=== PATIENT | female | born 1985 | race Caucasian/White ===

== ENCOUNTER 2016-08-17 17:05 | Emergency (ER) | payer SELFPAY ==
[2016-08-17] MEDS ORDERED: Albuterol/Ipratropium 3.0-0.5 MG/3 ML Neb Soln NEB ONE (17:24)
--- NOTE | 2016-08-17 17:25 | EDM.PDOC ---
ED HISTORY OF PRESENT ILLNESS - General Chief Complaint: Respiratory Problem Stated Complaint: COLD Time Seen by Provider: 08/17/16 17:20 Source of Information: Reports: Patient History Limitations: Reports: No limitations - History of Present Illness INITIAL COMMENTS - FREE TEXT/NARRATIVE: HISTORY AND PHYSICAL: History of present illness: [Patient comes to the emergency room complaining of cough and cold symptoms for the past 3 weeks. Her symptoms have mostly resolved other than the cough. It is dry and hacking. No sputum production. She has not had fever or chills for at least the past week. No runny nose or earaches. No nausea or vomiting. She had one episode of loose stools earlier today. No chest pain shortness of breath or difficulty breathing. She hears wheezing when she coughs. She has a history of asthma which requires her to use albuterol inhaler a couple of times a week. She does not currently have a PCP as she does not have health insurance. No other complaints or concerns at this time.] Review of systems: As per history of present illness and below otherwise all systems reviewed and negative. Past medical history: As per history of present illness and as reviewed below otherwise noncontributory. Surgical history: As per history of present illness and as reviewed below otherwise noncontributory. Social history: No reported history of drug or alcohol abuse. Family history: As per history of present illness and as reviewed below otherwise noncontributory. Physical exam: HEENT: Atraumatic, normocephalic. TMs are pearly hunter and without effusion bilaterally. No nasal discharge. Turbinates are without inflammation. Oral mucous membranes are pink and moist no tonsillar swelling erythema or exudate. neck supple, nontender, no lymphadenopathy.. Lungs: Clear to auscultation, but unable to inhale deeply. breath sounds equal bilaterally. No wheezing crackles or rales. Heart: S1S2, regular, negative for clicks, rubs, or JVD. Abdomen: Obese. Soft, nontender. Negative for costovertebral tenderness. Pelvis: Stable nontender. Genitourinary: Deferred. Rectal: Deferred. Extremities: Atraumatic, negative for cords or calf pain. No cyanosis to feet or lower legs. Neurovascular unremarkable. Neuro: Awake, alert, oriented. Exam nonfocal. Therapeutics: [DuoNeb] Impression: [Viral bronchitis] Plan: [Inspiration is improved significantly with DuoNeb breathing treatment. Discussed with patient that she needs to increase cough and she's using albuterol inhaler. We also discussed that her symptoms are viral in nature and an antibiotic will not be effective. Encouraged to push fluids take Robitussin or Delsym cough syrup as needed. She is given a prescription for Albuterol inhaler #1 sig: One to 2 puffs every 4-6 hours as needed for wheezing, cough, shortness of breath. no refills All questions are answered and concerns are addressed.] Definitive disposition and diagnosis as appropriate pending reevaluation and review of above. - Related Data Allergies/ADRs: Allergies Allergy/AdvReac Type Severity Reaction Status Date / Time morphine Allergy Rash Verified 08/17/16 17:16 Home Meds: Home Meds Albuterol [Take Home: Albuterol 6.7 GM, 1 INH Pack] 0 inhaler NASBOTH ASDIRECTED 08/17/16 [History] Cetirizine [ZyrTEC] 10 mg PO BEDTIME 08/17/16 [History] Past Medical History - Past Health History Medical/Surgical History: Denies Medical/Surgical History Social & Family History - Alcohol Use Days Per Week of Alcohol Use: 0 Number of Drinks Per Day: 1 Total Drinks Per Week: 0 - Recreational Drug Use Recreational Drug Use: No ED ROS GENERAL - Review of Systems Review Of Systems: ROS reveals no pertinent complaints other than HPI. ED EXAM, GENERAL - Physical Exam Exam: See Below Course - Vital Signs Last Recorded V/S: Last Vital Signs Temp 98.7 F 08/17/16 18:05 Pulse 81 08/17/16 18:05 Resp 18 08/17/16 18:05 BP 133/63 08/17/16 18:05 Pulse Ox 96 08/17/16 18:05 - Orders/Labs/Meds Orders: Active Orders 24 hr Category Date Time Status RT Aerosol Therapy [RC] ASDIRECTED Care 08/17/16 17:24 Active Meds: Medications Discontinued Medications Generic Name Dose Route Start Last Admin Trade Name Freq PRN Reason Stop Dose Admin Albuterol/Ipratropium 3 ml 08/17/16 17:24 08/17/16 17:37 Duoneb 3.0-0.5 Mg/3 Ml NEB 08/17/16 17:25 3 ml ONETIME ONE Administration Departure - Departure Time of Disposition: 17:55 Disposition: Home, Self-Care 01 Condition: good Clinical Impression: Viral bronchitis Instructions: Viral Respiratory Infection, [id number] Referrals: PCP,None [Primary Care Provider] - Forms: ED Department Discharge Additional Instructions: The following information is given to patients seen in the emergency department who are being discharged to home. This information is to outline your options for follow-up care. We provide all patients seen in our emergency department with a follow-up referral. The need for follow-up, as well as the timing and circumstances, are variable depending upon the specifics of your emergency department visit. If you don't have a primary care physician on staff, we will provide you with a referral. We always advise you to contact your personal physician following an emergency department visit to inform them of the circumstance of the visit and for follow-up with them and/or the need for any referrals to a consulting specialist. The emergency department will also refer you to a specialist when appropriate. This referral assures that you have the opportunity for follow-up care with a specialist. All of these measure are taken in an effort to provide you with optimal care, which includes your follow-up. Under all circumstances we always encourage you to contact your private physician who remains a resource for coordinating your care. When calling for follow-up care, please make the office aware that this follow-up is from your recent emergency room visit. If for any reason you are refused follow-up, please contact the [facility] emergency department at and asked to speak to the emergency department charge nurse. [address] [address] Establish care with a local primary care provider or clinic listed above. Take Robitussin or Delsym cough syrup as needed. Use your Albuterol inhaler 3-4 times per day as needed. Return to ER as needed as discussed. - My Orders Last 24 Hours: My Active Orders 08/17/16 17:24 RT Aerosol Therapy [RC] ASDIRECTED - Assessment/Plan Last 24 Hours: My Active Orders 08/17/16 17:24 RT Aerosol Therapy [RC] ASDIRECTED
[2016-08-17 18:12] VITALS: BP 133/63
== END 2016-08-17 18:17 | disposition home or self-care (01) ==
LOC: MW.ED 17:05
DX: J20.8 Acute bronchitis due to other specified organisms (principal); Z88.5 Allergy status to narcotic agent
CPT/HCPCS: 94664; 99284

== ENCOUNTER 2016-10-11 19:01 | Emergency (ER) | payer SELFPAY ==
[2016-10-11] MEDS ORDERED: Ketorolac 60 MG/2 ML SDV IM ONE (20:15)
--- NOTE | 2016-10-11 20:16 | EDM.PDOC ---
ED HPI GENERAL MEDICAL PROBLEM - General Chief Complaint: Back Pain or Injury Stated Complaint: HURT LOWER BACK Time Seen by Provider: 10/11/16 20:15 Source of Information: Reports: Patient - History of Present Illness INITIAL COMMENTS - FREE TEXT/NARRATIVE: HISTORY AND PHYSICAL: History of present illness: [] Patient presents with 5/10 low back pain after moving a couch earlier today, no radiculopathy no footdrop saddle anesthesia bowel or urine symptoms, pain worsened by lifting better at rest No fever nausea vomiting chills sweats Review of systems: As per history of present illness and below otherwise all systems reviewed and negative. Past medical history: As per history of present illness and as reviewed below otherwise noncontributory. Surgical history: As per history of present illness and as reviewed below otherwise noncontributory. Social history: No reported history of drug or alcohol abuse. Family history: As per history of present illness and as reviewed below otherwise noncontributory. Physical exam: HEENT: Atraumatic, normocephalic, pupils reactive, negative for conjunctival pallor or scleral icterus, mucous membranes moist, throat clear, neck supple, nontender, trachea midline. Lungs: Clear to auscultation, breath sounds equal bilaterally, chest nontender. Heart: S1S2, regular, negative for clicks, rubs, or JVD. Abdomen: Soft, nondistended, nontender. Negative for masses or hepatosplenomegaly. Negative for costovertebral tenderness. Pelvis: Stable nontender. Genitourinary: Deferred. Rectal: Deferred. Extremities: Atraumatic, negative for cords or calf pain. Neurovascular unremarkable. Straight leg raise to 30 does not produce any radiculopathy Neuro: Awake, alert, oriented. Cranial nerves II through XII unremarkable. Cerebellum unremarkable. Motor and sensory unremarkable throughout. Exam nonfocal. Footdrop or saddle anesthesia Diagnostics: [] HCG, lumbar spine 3 views Therapeutics: [] Toradol 60 IM Cataflam Flexeril Impression: [] Low-back pain/paraspinous muscle spasm Definitive disposition and diagnosis as appropriate pending reevaluation and review of above. Back Pain Score (Numeric/FACES): 7 - Related Data Allergies Allergy/AdvReac Type Severity Reaction Status Date / Time morphine Allergy Rash Verified 08/17/16 17:16 Home Meds: Home Meds Albuterol [Take Home: Albuterol 6.7 GM, 1 INH Pack] 0 inhaler NASBOTH ASDIRECTED 08/17/16 [History] Cetirizine [ZyrTEC] 10 mg PO BEDTIME 08/17/16 [History] Past Medical History - Past Health History Medical/Surgical History: Denies Medical/Surgical History HEENT History: Reports: Impaired vision Respiratory History: Reports: Asthma - Infectious Disease History Infectious Disease History: Reports: Chicken pox - Past Surgical History Other Musculoskeletal Surgeries/Procedures:: right hand & left knee surgery Social & Family History - Family History Family Medical History: Noncontributory - Tobacco Use Smoking Status *Q: Never Smoker Second Hand Smoke Exposure: No - Caffeine Use Caffeine Use: Reports: Coffee, Soda - Alcohol Use Days Per Week of Alcohol Use: 0 Number of Drinks Per Day: 1 Total Drinks Per Week: 0 - Recreational Drug Use Recreational Drug Use: No ED ROS GENERAL - Review of Systems Review Of Systems: ROS reveals no pertinent complaints other than HPI. ED EXAM, GENERAL - Physical Exam Exam: See Below Course - Vital Signs Last Recorded V/S: Last Vital Signs Temp 36.2 C 10/11/16 19:13 Pulse 75 10/11/16 19:13 Resp 18 10/11/16 19:13 BP 124/80 10/11/16 19:13 Pulse Ox 99 10/11/16 19:13 - Orders/Labs/Meds Orders: Active Orders 24 hr Category Date Time Status Lumbar Spine 2 or 3V [CR] Stat Exams 10/11/16 20:00 Taken Labs: Laboratory Tests 10/11/16 Range/Units 20:00 Urine HCG, Qual NEGATIVE (NEGATIVE) Meds: Medications Discontinued Medications Generic Name Dose Route Start Last Admin Trade Name Shubham PRN Reason Stop Dose Admin Ketorolac Tromethamine 60 mg 10/11/16 20:15 Toradol IM 10/11/16 20:16 ONETIME ONE Departure - Departure Time of Disposition: 20:45 Disposition: Home, Self-Care 01 Condition: good Clinical Impression: Low back pain, Lumbar paraspinal muscle spasm Forms: ED Department Discharge Additional Instructions: Medication as prescribed Return if symptoms persist or worsen Followup with primary care in 2 weeks [facility] - Primary [facility] [address] [place] [id number] The following information is given to patients seen in the emergency department who are being discharged to home. This information is to outline your options for follow-up care. We provide all patients seen in our emergency department with a follow-up referral. The need for follow-up, as well as the timing and circumstances, are variable depending upon the specifics of your emergency department visit. If you don't have a primary care physician on staff, we will provide you with a referral. We always advise you to contact your personal physician following an emergency department visit to inform them of the circumstance of the visit and for follow-up with them and/or the need for any referrals to a consulting specialist. The emergency department will also refer you to a specialist when appropriate. This referral assures that you have the opportunity for follow-up care with a specialist. All of these measure are taken in an effort to provide you with optimal care, which includes your follow-up. Under all circumstances we always encourage you to contact your private physician who remains a resource for coordinating your care. When calling for follow-up care, please make the office aware that this follow-up is from your recent emergency room visit. If for any reason you are refused follow-up, please contact the [facility] emergency department at and asked to speak to the emergency department charge nurse. - My Orders Last 24 Hours: My Active Orders 10/11/16 20:00 Lumbar Spine 2 or 3V [CR] Stat - Assessment/Plan Last 24 Hours: My Active Orders 10/11/16 20:00 Lumbar Spine 2 or 3V [CR] Stat
[2016-10-11 21:15] VITALS: BP 125/82
--- NOTE | 2016-10-12 15:21 | CR ---
EXAM DATE: 10/11/16 PATIENT'S AGE: 31 Patient: MARIANA DOMINGO Facility: [place], [place] Site . Site : 1985 Study: XRay Spine Lumbar [id number]/1/2017 8:33:47 PM Ordering Physician: Sheba Velarde Final Report: INDICATION: back pain TECHNIQUE: Lumbar spine radiograph 2 views COMPARISON: None FINDINGS: Bones: Alignment is normal. No acute fractures, compression deformities, or aggressive bone lesions identified. Disc spaces: Disc spaces are normal. Facet joints are normal. Soft tissues: Unremarkable. IMPRESSION: 1. No acute osseous injuries are noted. Dictated by: Lg Melgar MD @ 10/11/2016 20:35:12 (Electronic Signature) Report Signed by Proxy. JULIA
== END 2016-10-11 20:10 | disposition home or self-care (01) ==
LOC: MW.ED 19:01
DX: M62.830 Muscle spasm of back (principal); M54.5 Low back pain; J45.909 Unspecified asthma, uncomplicated; Z88.5 Allergy status to narcotic agent
CPT/HCPCS: 72100; 81025; 96372; 99283; J1885

== ENCOUNTER 2016-11-13 18:49 | Emergency (ER) | payer SELFPAY ==
--- NOTE | 2016-11-13 19:10 | EDM.PDOC ---
ED HPI GENERAL MEDICAL PROBLEM - General Chief Complaint: Lower Extremity Injury/Pain Stated Complaint: PT HURT RT FOOT Time Seen by Provider: 11/13/16 19:04 Source of Information: Reports: Patient - History of Present Illness INITIAL COMMENTS - FREE TEXT/NARRATIVE: HISTORY AND PHYSICAL: History of present illness: [] Patient presents with right foot pain unable to bear weight due to pain, yesterday she was walking off of a step and twisted her ankle she has used ice ibuprofen with some benefit her ankle is nonswollen and is not hurting but she has pain over the calcaneus at this time with light touch on the plantar surface of her heel No bruising or open lesion entire limb is otherwise neurovascularly intact skin is intact No fever nausea vomiting chills sweats no fall or head injury or trauma no loss of consciousness Review of systems: As per history of present illness and below otherwise all systems reviewed and negative. Past medical history: As per history of present illness and as reviewed below otherwise noncontributory. Surgical history: As per history of present illness and as reviewed below otherwise noncontributory. Social history: No reported history of drug or alcohol abuse. Family history: As per history of present illness and as reviewed below otherwise noncontributory. Physical exam: HEENT: Atraumatic, normocephalic, pupils reactive, negative for conjunctival pallor or scleral icterus, mucous membranes moist, throat clear, neck supple, nontender, trachea midline. Lungs: Clear to auscultation, breath sounds equal bilaterally, chest nontender. Heart: S1S2, regular, negative for clicks, rubs, or JVD. Abdomen: Soft, nondistended, nontender. Negative for masses or hepatosplenomegaly. Negative for costovertebral tenderness. Pelvis: Stable nontender. Genitourinary: Deferred. Rectal: Deferred. Extremities: Atraumatic, negative for cords or calf pain. Neurovascular unremarkable. Right foot: As per history of present illness unaffected above the ankle Neuro: Awake, alert, oriented. Cranial nerves II through XII unremarkable. Cerebellum unremarkable. Motor and sensory unremarkable throughout. Exam nonfocal. Diagnostics: [] Right ankle 3-V Therapeutics: [] Crutches nonweightbearing Rest ice ibuprofen Orthotics may benefit Followup with orthopedist or digital performance analyst Impression: [] Right heel pain/heel spur Definitive disposition and diagnosis as appropriate pending reevaluation and review of above. Right Ankle Pain Score (Numeric/FACES): 6 - Related Data Allergies Allergy/AdvReac Type Severity Reaction Status Date / Time morphine Allergy Rash Verified 11/13/16 19:01 Past Medical History - Past Health History Medical/Surgical History: Denies Medical/Surgical History HEENT History: Reports: Impaired Vision Respiratory History: Reports: Asthma - Infectious Disease History Infectious Disease History: Reports: Chicken Pox - Past Surgical History Other Musculoskeletal Surgeries/Procedures:: right hand & left knee surgery Social & Family History - Family History Family Medical History: Noncontributory - Tobacco Use Smoking Status *Q: Never Smoker Second Hand Smoke Exposure: No - Caffeine Use Caffeine Use: Reports: Coffee, Soda - Alcohol Use Days Per Week of Alcohol Use: 0 Number of Drinks Per Day: 1 Total Drinks Per Week: 0 - Recreational Drug Use Recreational Drug Use: No Review of Systems - Review of Systems Review Of Systems: ROS reveals no pertinent complaints other than HPI. ED EXAM, GENERAL - Physical Exam Exam: See Below Course - Vital Signs Last Recorded V/S: Last Vital Signs Temp 36.3 C 11/13/16 18:55 Pulse 94 11/13/16 18:55 Resp 19 11/13/16 18:55 BP 130/98 H 11/13/16 18:55 Pulse Ox 98 11/13/16 18:55 - Orders/Labs/Meds Orders: Active Orders 24 hr Category Date Time Status Foot Comp Min 3V Rt [CR] Stat Exams 11/13/16 19:01 Taken Labs: Laboratory Tests 11/13/16 Range/Units 19:15 Urine HCG, Qual NEGATIVE (NEGATIVE) Departure - Departure Time of Disposition: 20:17 Disposition: Home, Self-Care 01 Condition: good Clinical Impression: Pain, Heel spur - Discharge Information Forms: ED Department Discharge Additional Instructions: Wrist Ice 20 minute intervals 3 times daily 7-10 days Ibuprofen 400 mg 3 times daily 7-10 days Orthotics in her shoes may benefit Followup with orthopedist or digital performance analyst one week 48 hours off work Crutches to be used as needed, recommend no nonweightbearing or toe-touch [facility] [address], [address] [place] [address] my orthopedic The following information is given to patients seen in the emergency department who are being discharged to home. This information is to outline your options for follow-up care. We provide all patients seen in our emergency department with a follow-up referral. The need for follow-up, as well as the timing and circumstances, are variable depending upon the specifics of your emergency department visit. If you don't have a primary care physician on staff, we will provide you with a referral. We always advise you to contact your personal physician following an emergency department visit to inform them of the circumstance of the visit and for follow-up with them and/or the need for any referrals to a consulting specialist. The emergency department will also refer you to a specialist when appropriate. This referral assures that you have the opportunity for follow-up care with a specialist. All of these measure are taken in an effort to provide you with optimal care, which includes your follow-up. Under all circumstances we always encourage you to contact your private physician who remains a resource for coordinating your care. When calling for follow-up care, please make the office aware that this follow-up is from your recent emergency room visit. If for any reason you are refused follow-up, please contact the [facility] emergency department at and asked to speak to the emergency department charge nurse. - My Orders Last 24 Hours: My Active Orders 11/13/16 19:01 Foot Comp Min 3V Rt [CR] Stat - Assessment/Plan Last 24 Hours: My Active Orders 11/13/16 19:01 Foot Comp Min 3V Rt [CR] Stat
[2016-11-13 20:29] VITALS: BP 125/88
--- NOTE | 2016-11-15 14:44 | CR ---
EXAM DATE: 11/13/16 PATIENT'S AGE: 31 Patient: MARIANA DOMINGO Facility: [place], [place] Site . Site : 1985 Study: XRay Extremity Right [id number] foot-11/13/2016 7:43:47 PM Ordering Physician: Sheba Velarde Final Report: TECHNIQUE: Three views of the right foot. INDICATION: Right foot pain. FINDINGS: No acute right foot fracture, dislocation, or radiopaque foreign body. No bone lesion. Small plantar heel spur. Right foot otherwise negative. Dictated by Tonio Cramer MD @ 11/13/2016 8:04:55 PM Dictated by: Tonio Cramer MD @ 11/13/2016 20:05:07 (Electronic Signature) Report Signed by Proxy. JULIA
== END 2016-11-13 20:29 | disposition home or self-care (01) ==
LOC: MW.ED 18:49
DX: M77.31 Calcaneal spur, right foot (principal); Z88.5 Allergy status to narcotic agent; Z98.890 Other specified postprocedural states; W18.43XA Slipping, tripping and stumbling without falling due to stepping from one level to another, initial encounter
CPT/HCPCS: 73630-26-RT; 73630-RT; 81025; 99282; 99283

== ENCOUNTER 2016-11-27 12:32 | Emergency (ER) | payer SELFPAY ==
--- NOTE | 2016-11-27 13:00 | EDM.PDOC ---
ED HPI GENERAL MEDICAL PROBLEM - General Chief Complaint: Lower Extremity Injury/Pain Stated Complaint: PAIN IN KNEE AND FOOT Time Seen by Provider: 11/27/16 12:57 Source of Information: Reports: Patient History Limitations: Reports: No Limitations - History of Present Illness INITIAL COMMENTS - FREE TEXT/NARRATIVE: History of present illness: [31-year-old female comes in complaining of left ankle pain. 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 Past medical history: As per history of present illness and as reviewed below otherwise noncontributory. Surgical history: As per history of present illness and as reviewed below otherwise noncontributory. Social history: No reported history of drug or alcohol abuse. Family history: As per history of present illness and as reviewed below otherwise noncontributory. Physical exam: HEENT: Atraumatic, normocephalic, pupils reactive, negative for conjunctival pallor or scleral icterus, mucous membranes moist, throat clear, neck supple, nontender, trachea midline. Lungs: Clear to auscultation, breath sounds equal bilaterally, chest nontender. Heart: S1S2, regular, negative for clicks, rubs, or JVD. Abdomen: Soft, nondistended, nontender. Negative for masses or hepatosplenomegaly. Negative for costovertebral tenderness. Pelvis: Stable nontender. Genitourinary: Deferred. Rectal: Deferred. Extremities: Atraumatic, negative for cords or calf pain. Neurovascular unremarkable. Left ankle without swelling, edema, or ecchymosis is tender to palpation. Neuro: Awake, alert, oriented. Cranial nerves II through XII unremarkable. Cerebellum unremarkable. Motor and sensory unremarkable throughout. Exam nonfocal. Global assessment is benign save as noted in the subjective complaint in the history of present illness Diagnostics: [X-ray of left ankle] Therapeutics: [] Impression: [Ankle pain] Plan: [Gideon wrap, crutches, [id number] pain medicine] Definitive disposition and diagnosis as appropriate pending reevaluation and review of above. right ankle Pain Score (Numeric/FACES): 6 - Related Data Allergies Allergy/AdvReac Type Severity Reaction Status Date / Time morphine Allergy Rash Verified 11/27/16 12:48 Home Meds: Home Meds . [No Known Home Meds] 11/27/16 [History] Past Medical History - Past Health History Medical/Surgical History: Denies Medical/Surgical History HEENT History: Reports: Impaired Vision Respiratory History: Reports: Asthma - Infectious Disease History Infectious Disease History: Reports: Chicken Pox - Past Surgical History Other Musculoskeletal Surgeries/Procedures:: right hand & left knee surgery Social & Family History - Family History Family Medical History: Noncontributory - Tobacco Use Smoking Status *Q: Never Smoker Second Hand Smoke Exposure: No - Caffeine Use Caffeine Use: Reports: Coffee, Soda - Alcohol Use Days Per Week of Alcohol Use: 0 Number of Drinks Per Day: 1 Total Drinks Per Week: 0 - Recreational Drug Use Recreational Drug Use: No Review of Systems - Review of Systems Review Of Systems: See Below (See history of present illness) ED EXAM, GENERAL - Physical Exam Exam: See Below (See history of present illness) Course - Vital Signs Last Recorded V/S: Last Vital Signs Temp 36.0 C 11/27/16 12:48 Pulse 102 H 11/27/16 12:48 Resp 16 11/27/16 12:48 BP 129/81 11/27/16 12:48 Pulse Ox 98 11/27/16 12:48 - Orders/Labs/Meds Orders: Active Orders 24 hr Category Date Time Status Ankle Min 3V Rt [CR] Stat Exams 11/27/16 13:09 Taken Departure - Departure Time of Disposition: 14:04 Disposition: Home, Self-Care 01 Condition: Good Clinical Impression: Ankle pain, left - Discharge Information Instructions: Crutch Use, [id number] Forms: ED Department Discharge Additional Instructions: The following information is given to patients seen in the emergency department who are being discharged to home. This information is to outline your options for follow-up care. We provide all patients seen in our emergency department with a follow-up referral. The need for follow-up, as well as the timing and circumstances, are variable depending upon the specifics of your emergency department visit. If you don't have a primary care physician on staff, we will provide you with a referral. We always advise you to contact your personal physician following an emergency department visit to inform them of the circumstance of the visit and for follow-up with them and/or the need for any referrals to a consulting specialist. The emergency department will also refer you to a specialist when appropriate. This referral assures that you have the opportunity for follow-up care with a specialist. All of these measure are taken in an effort to provide you with optimal care, which includes your follow-up. Under all circumstances we always encourage you to contact your private physician who remains a resource for coordinating your care. When calling for follow-up care, please make the office aware that this follow-up is from your recent emergency room visit. If for any reason you are refused follow-up, please contact the [facility] Emergency Department at and asked to speak to the emergency department charge nurse. Please keep your leg elevated as much as possible and use crutches when walking you may alternate ice no longer than 20 minutes at a time for pain and swelling You may take ibuprofen 800 mg up to every 8 hours for pain Follow-up with your PCP in 1-2 days You have been providing orthopedic referral for deeper evaluation please give this information to your flare since you indicated this was work-related [facility] Professional Building [address] [place] [address], [address] [place] [address] - My Orders Last 24 Hours: My Active Orders 11/27/16 13:09 Ankle Min 3V Rt [CR] Stat - Assessment/Plan Last 24 Hours: My Active Orders 11/27/16 13:09 Ankle Min 3V Rt [CR] Stat
[2016-11-27 15:00] VITALS: BP 125/74
--- NOTE | 2016-11-29 11:49 | CR ---
EXAM DATE: 11/27/16 PATIENT'S AGE: 31 Patient: MARIANA DOMINGO Facility: [place], [place] Site Site : 1985 Study: XRay Extremity Right ANKLE [id number]/17/2017 1:31:12 PM Ordering Physician: EDER Final Report: INDICATION: PAIN/SLIPPED AND TWISTED TWO WEEKS AGO INDICATION: Right ankle pain and injury. TECHNIQUE: Three view. FINDINGS: No acute fracture is seen of the right ankle. The mortise appears to be in good position. IMPRESSION: No acute fracture is seen of the right ankle. Dictated by Satinder Burr MD @ 11/27/2016 2:43:42 PM Dictated by: Satinder Burr MD @ 11/27/2016 14:43:48 (Electronic Signature) Report Signed by Proxy. [facility]
== END 2016-11-27 14:56 | disposition home or self-care (01) ==
LOC: MW.ED 12:32
DX: M25.572 Pain in left ankle and joints of left foot (principal); J45.909 Unspecified asthma, uncomplicated; Z88.5 Allergy status to narcotic agent
CPT/HCPCS: 73610-26-RT; 73610-RT; 99282; 99283

== ENCOUNTER 2016-12-03 18:11 | Emergency (ER) | payer SELFPAY ==
--- NOTE | 2016-12-03 19:30 | EDM.PDOC ---
ED HPI GENERAL MEDICAL PROBLEM - General Chief Complaint: Behavioral/Psych Stated Complaint: ANXIETY ATTACK Time Seen by Provider: 12/03/16 19:15 - History of Present Illness INITIAL COMMENTS - FREE TEXT/NARRATIVE: HISTORY AND PHYSICAL: History of present illness: Patient 31-year-old female history of anxiety and panic attacks presents with a concern of anxiety and panic attack she has no other complaints she states she just feels significantly anxious she denies homicidal or suicidal ideation and has no other concerns Review of systems: As per history of present illness and below otherwise all systems reviewed and negative. Past medical history: As per history of present illness and as reviewed below otherwise noncontributory. Surgical history: As per history of present illness and as reviewed below otherwise noncontributory. Social history: No reported history of drug or alcohol abuse. Family history: As per history of present illness and as reviewed below otherwise noncontributory. Physical exam: HEENT: Atraumatic, normocephalic, pupils reactive, negative for conjunctival pallor or scleral icterus, mucous membranes moist, throat clear, neck supple, nontender, trachea midline. Lungs: Clear to auscultation, breath sounds equal bilaterally, chest nontender. Heart: S1S2, regular, negative for clicks, rubs, or JVD. Abdomen: Soft, nondistended, nontender. Negative for masses or hepatosplenomegaly. Negative for costovertebral tenderness. Pelvis: Stable nontender. Genitourinary: Deferred. Rectal: Deferred. Extremities: Atraumatic, negative for cords or calf pain. Neurovascular unremarkable. Neuro: Awake, alert, oriented. Cranial nerves II through XII unremarkable. Cerebellum unremarkable. Motor and sensory unremarkable throughout. Exam nonfocal. Diagnostics: None Therapeutics: None Impression: #1 anxiety Definitive disposition and diagnosis as appropriate pending reevaluation and review of above. chest Pain Score (Numeric/FACES): 7 - Related Data Allergies Allergy/AdvReac Type Severity Reaction Status Date / Time morphine Allergy Rash Verified 12/03/16 18:47 Home Meds: Home Meds Cetirizine [ZyrTEC] 10 mg PO DAILY 12/03/16 [History] Past Medical History - Past Health History Medical/Surgical History: Denies Medical/Surgical History HEENT History: Reports: Impaired Vision Other HEENT History: wears eyeglasses Cardiovascular History: Reports: None Respiratory History: Reports: Asthma Gastrointestinal History: Reports: None Genitourinary History: Reports: None ROPE TIER History: Reports: None Musculoskeletal History: Reports: None Neurological History: Reports: None Psychiatric History: Reports: Anxiety, Depression, PTSD Endocrine/Metabolic History: Reports: None Hematologic History: Reports: None Immunologic History: Reports: None Oncologic (Cancer) History: Reports: None Dermatologic History: Reports: None - Infectious Disease History Infectious Disease History: Reports: Chicken Pox - Past Surgical History Other Musculoskeletal Surgeries/Procedures:: right hand & left knee surgery Social & Family History - Family History Family Medical History: Noncontributory - Tobacco Use Smoking Status *Q: Never Smoker Second Hand Smoke Exposure: No - Caffeine Use Caffeine Use: Reports: Coffee Caffeine Use Comment: 1 cup occasionally - Alcohol Use Days Per Week of Alcohol Use: 0 Number of Drinks Per Day: 1 Total Drinks Per Week: 0 - Recreational Drug Use Recreational Drug Use: No ED ROS GENERAL - Review of Systems Review Of Systems: ROS reveals no pertinent complaints other than HPI. ED EXAM, GENERAL - Physical Exam Exam: See Below (See dictation) Course - Vital Signs Last Recorded V/S: Last Vital Signs Temp 36.6 C 12/03/16 19:10 Pulse 89 12/03/16 19:10 Resp 18 12/03/16 19:10 BP 138/79 12/03/16 19:10 Pulse Ox 98 12/03/16 19:10 Departure - Departure Time of Disposition: 19:29 Disposition: Home, Self-Care 01 Condition: Good Clinical Impression: Anxiety - Discharge Information Forms: ED Department Discharge Additional Instructions: The following information is given to patients seen in the emergency department who are being discharged to home. This information is to outline your options for follow-up care. We provide all patients seen in our emergency department with a follow-up referral. The need for follow-up, as well as the timing and circumstances, are variable depending upon the specifics of your emergency department visit. If you don't have a primary care physician on staff, we will provide you with a referral. We always advise you to contact your personal physician following an emergency department visit to inform them of the circumstance of the visit and for follow-up with them and/or the need for any referrals to a consulting specialist. The emergency department will also refer you to a specialist when appropriate. This referral assures that you have the opportunity for followup care with a specialist. All of these measure are taken in an effort to provide you with optimal care, which includes your followup. Under all circumstances we always encourage you to contact your private physician who remains a resource for coordinating your care. When calling for followup care, please make the office aware that this follow-up is from your recent emergency room visit. If for any reason you are refused follow-up, please contact the [facility] emergency department at and asked to speak to the emergency department charge nurse. [facility] [place] [id number] Follow-up primary medical doctor 1-2 days scheduled clinic appointment as needed as discussed above return as needed as discussed
[2016-12-03 19:44] VITALS: BP 131/80
== END 2016-12-03 19:42 | disposition home or self-care (01) ==
LOC: MW.ED 18:11
DX: F41.9 Anxiety disorder, unspecified (principal); J45.909 Unspecified asthma, uncomplicated; F32.9 Major depressive disorder, single episode, unspecified; F43.10 Post-traumatic stress disorder, unspecified; Z98.890 Other specified postprocedural states; Z79.899 Other long term (current) drug therapy; Z88.5 Allergy status to narcotic agent
CPT/HCPCS: 99282

== ENCOUNTER 2017-01-13 17:18 | Emergency (ER) | payer SELFPAY ==
[2017-01-13] MEDS ORDERED: Sodium Chloride 0.9% 1,000 ML IV ONE ×2 (17:48→20:12)
[2017-01-13] MEDS ORDERED: LORazepam 2 MG/ML MDV IVPUSH ONE (20:12)
[2017-01-13] MEDS ORDERED: Ondansetron 4 MG/2 ML SDV IVPUSH ONE (20:12)
[2017-01-13] MEDS ORDERED: Ketorolac 30 MG/ML SDV IVPUSH ONE (20:12)
--- NOTE | 2017-01-13 20:13 | EDM.PDOC ---
ED HPI GENERAL MEDICAL PROBLEM - General Chief Complaint: Headache Stated Complaint: DIZZY/HEADACHES Time Seen by Provider: 01/13/17 17:30 Source of Information: Reports: Patient History Limitations: Reports: No Limitations - History of Present Illness INITIAL COMMENTS - FREE TEXT/NARRATIVE: History of present illness: [31-year-old female comes in complaining of the worst headache of her life. Patient indicates she has a history of migraines as well as sinusitis and she feels that she is having both simultaneously. Denies nausea and/or vomiting and or loss of consciousness.] Review of systems: As per history of present illness and below otherwise all systems reviewed and negative. Past medical history: As per history of present illness and as reviewed below otherwise noncontributory. Surgical history: As per history of present illness and as reviewed below otherwise noncontributory. Social history: No reported history of drug or alcohol abuse. Family history: As per history of present illness and as reviewed below otherwise noncontributory. Physical exam: HEENT: Atraumatic, normocephalic, pupils reactive, negative for conjunctival pallor or scleral icterus, mucous membranes moist, frontal and maxillary sinus tenderness, throat clear, neck supple, nontender, trachea midline. Lungs: Clear to auscultation, breath sounds equal bilaterally, chest nontender. Heart: S1S2, regular, negative for clicks, rubs, or JVD. Abdomen: Soft, nondistended, nontender. Negative for masses or hepatosplenomegaly. Negative for costovertebral tenderness. Pelvis: Stable nontender. Genitourinary: Deferred. Rectal: Deferred. Extremities: Atraumatic, negative for cords or calf pain. Neurovascular unremarkable. Neuro: Awake, alert, oriented. Cranial nerves II through XII unremarkable. Cerebellum unremarkable. Motor and sensory unremarkable throughout. Exam nonfocal. Global assessment is benign save is noted in the subjective complaint in the history of present illness save for some noted photosensitivity and sinus tenderness. Diagnostics: [CT of the head] Therapeutics: [IV fluids, Toradol, lorazepam] Impression: [UTI, sinusitis] Plan: [Macrobid, Augmentin] Definitive disposition and diagnosis as appropriate pending reevaluation and review of above. Left Headache Pain Score (Numeric/FACES): 7 - Related Data Allergies Allergy/AdvReac Type Severity Reaction Status Date / Time morphine Allergy Rash Verified 12/03/16 18:47 Home Meds: Home Meds Cetirizine [ZyrTEC] 10 mg PO DAILY 12/03/16 [History] Amoxicillin/Potassium Clav [Augmentin 875-125 Tablet] 1 each PO BID #20 tablet 01/13/17 [Rx] Escitalopram [Lexapro] 20 mg BEDTIME 01/13/17 [History] Excedrin 01/13/17 [History] Nitrofurantoin Monohyd/M-Cryst [Macrobid 100 mg Capsule] 100 mg PO BID #20 capsule 01/13/17 [Rx] Past Medical History - Past Health History Medical/Surgical History: Denies Medical/Surgical History HEENT History: Reports: Impaired Vision Other HEENT History: wears eyeglasses Cardiovascular History: Reports: None Respiratory History: Reports: Asthma Gastrointestinal History: Reports: None Genitourinary History: Reports: None [employer] History: Reports: None Musculoskeletal History: Reports: None Neurological History: Reports: Migraines Psychiatric History: Reports: Anxiety, Depression, PTSD Endocrine/Metabolic History: Reports: None Hematologic History: Reports: None Immunologic History: Reports: None Oncologic (Cancer) History: Reports: None Dermatologic History: Reports: None - Infectious Disease History Infectious Disease History: Reports: Chicken Pox - Past Surgical History Other Musculoskeletal Surgeries/Procedures:: right hand & left knee surgery Social & Family History - Family History Family Medical History: Noncontributory - Tobacco Use Smoking Status *Q: Never Smoker Second Hand Smoke Exposure: No - Caffeine Use Caffeine Use: Reports: Coffee Caffeine Use Comment: 1 cup occasionally - Alcohol Use Days Per Week of Alcohol Use: 0 Number of Drinks Per Day: 1 Total Drinks Per Week: 0 - Recreational Drug Use Recreational Drug Use: No ED ROS GENERAL - Review of Systems Review Of Systems: See Below (See history of present illness) - Physical Exam Exam: See Below (See history of present illness) Course - Vital Signs Last Recorded V/S: Last Vital Signs Temp 35.9 C 01/13/17 19:50 Pulse 63 01/13/17 19:50 Resp 18 01/13/17 17:30 BP 118/69 01/13/17 19:50 Pulse Ox 99 01/13/17 19:50 - Orders/Labs/Meds Orders: Active Orders 24 hr Category Date Time Status Head wo Cont [CT] Stat Exams 01/13/17 17:48 Taken Sodium Chloride 0.9% [Normal Saline] 1,000 ml Med 01/13/17 20:12 Active IV STAT Medication Orders Sodium Chloride (Normal Saline) 1,000 mls @ 999 mls/hr IV STAT ONE Stop: 01/13/17 21:12 Labs: Laboratory Tests 01/13/17 01/13/17 Range/Units 19:19 19:35 HCG, Qual NEGATIVE (NEG) Urine Color YELLOW Urine Appearance CLOUDY Urine pH 6.0 (5.0-8.0) Ur Specific [place] 1.020 (1.001-1.035) Urine Protein NEGATIVE (NEGATIVE) mg/dL Urine Glucose (UA) NEGATIVE (NEGATIVE) mg/dL Urine Ketones NEGATIVE (NEGATIVE) mg/dL Urine Occult Blood SMALL H (NEGATIVE) Urine Nitrite NEGATIVE (NEGATIVE) Urine Bilirubin NEGATIVE (NEGATIVE) Urine Urobilinogen 0.2 (<2.0) EU/dL Ur Leukocyte Esterase MODERATE (NEGATIVE) Urine RBC 1-3 (0-2/HPF) Urine WBC 15-20 (0-5/HPF) Ur Epithelial Cells MANY (NONE-FEW) Urine Bacteria 1+ H (NEGATIVE) Meds: Medications Generic Name Dose Route Start Last Admin Trade Name Freq PRN Reason Stop Dose Admin Sodium Chloride 1,000 mls @ 999 mls/hr 01/13/17 20:12 Normal Saline IV 01/13/17 21:12 STAT ONE Discontinued Medications Generic Name Dose Route Start Last Admin Trade Name Freq PRN Reason Stop Dose Admin Sodium Chloride 1,000 mls @ 999 mls/hr 01/13/17 17:48 01/13/17 18:32 Normal Saline IV 01/13/17 18:48 999 mls/hr STAT ONE Administration Ketorolac Tromethamine 30 mg 01/13/17 20:12 Toradol IVPUSH 01/13/17 20:13 ONETIME ONE Lorazepam 1 mg 01/13/17 20:12 Ativan IVPUSH 01/13/17 20:13 ONETIME ONE Ondansetron HCl 8 mg 01/13/17 20:12 Zofran IVPUSH 01/13/17 20:13 ONETIME ONE Departure - Departure Time of Disposition: 20:57 Disposition: Home, Self-Care 01 Condition: Good Clinical Impression: Sinusitis, UTI (urinary tract infection) - Discharge Information Prescriptions: Amoxicillin/Potassium Clav [Augmentin 875-125 Tablet] 1 each PO BID #20 tablet Nitrofurantoin Monohyd/M-Cryst [Macrobid 100 mg Capsule] 100 mg PO BID #20 capsule Instructions: Sinus Headache, [id number] Forms: ED Department Discharge Additional Instructions: The following information is given to patients seen in the emergency department who are being discharged to home. This information is to outline your options for follow-up care. We provide all patients seen in our emergency department with a follow-up referral. The need for follow-up, as well as the timing and circumstances, are variable depending upon the specifics of your emergency department visit. If you don't have a primary care physician on staff, we will provide you with a referral. We always advise you to contact your personal physician following an emergency department visit to inform them of the circumstance of the visit and for follow-up with them and/or the need for any referrals to a consulting specialist. The emergency department will also refer you to a specialist when appropriate. This referral assures that you have the opportunity for follow-up care with a specialist. All of these measure are taken in an effort to provide you with optimal care, which includes your follow-up. Under all circumstances we always encourage you to contact your private physician who remains a resource for coordinating your care. When calling for follow-up care, please make the office aware that this follow-up is from your recent emergency room visit. If for any reason you are refused follow-up, please contact the [facility] Emergency Department at and asked to speak to the emergency department charge nurse. Take medication as directed Follow-up with PCP 1-2 days Return to ED as needed as discussed [facility] [address] [place] [id number] - My Orders Last 24 Hours: My Active Orders 01/13/17 17:48 Head wo Cont [CT] Stat 01/13/17 20:12 Sodium Chloride 0.9% [Normal Saline] 1,000 ml IV STAT - Assessment/Plan Last 24 Hours: My Active Orders 01/13/17 17:48 Head wo Cont [CT] Stat 01/13/17 20:12 Sodium Chloride 0.9% [Normal Saline] 1,000 ml IV STAT
[2017-01-13 21:23] VITALS: BP 114/70
--- NOTE | 2017-01-14 18:58 | CT ---
EXAM DATE: 01/13/17 PATIENT'S AGE: 31 Patient: MARIANA DOMINGO Facility: [place], [place] Site . Site : 1985 Study: CT Head [id number]/3/2017 8:42:52 PM Ordering Physician: Doctor Morales Final Report: INDICATION: head pain w/photophobia TECHNIQUE: CT Head without contrast. COMPARISON: None. FINDINGS: There is no sign of intracranial hemorrhage or mass effect. Ventricles and sulci are symmetric and midline. The hunter-white differentiation is preserved. No abnormal intra-axial or extra-axial fluid collection. Scattered opacification of the imaged paranasal sinuses. No acute disease of the mastoid air cells. No fracture evident. No scalp hematoma/laceration. IMPRESSION: 1. No acute intracranial process. 2. Please correlate for acute sinusitis. Dictated by: Milad Leger MD @ 01/13/2017 20:52:47 (Electronic Signature) Report Signed by Proxy. [facility]
== END 2017-01-13 21:19 | disposition home or self-care (01) ==
LOC: MW.ED 17:18
DX: J32.9 Chronic sinusitis, unspecified (principal); N39.0 Urinary tract infection, site not specified; F41.9 Anxiety disorder, unspecified; F32.9 Major depressive disorder, single episode, unspecified; J45.909 Unspecified asthma, uncomplicated; Z79.899 Other long term (current) drug therapy; Z88.5 Allergy status to narcotic agent; Z98.890 Other specified postprocedural states
CPT/HCPCS: 36415; 70450; 81001; 84703; 96360; 99284; J7040

== ENCOUNTER 2017-02-26 11:06 | Emergency (ER) | payer SELFPAY ==
[2017-02-26 11:14] VITALS: BP 130/82
--- NOTE | 2017-02-26 11:30 | EDM.PDOC ---
ED HPI GENERAL MEDICAL PROBLEM - General Chief Complaint: Respiratory Problem Stated Complaint: TIGHT CHEST PAIN, CANT BREATH BACK PAIN Time Seen by Provider: 02/26/17 11:10 Source of Information: Reports: Patient History Limitations: Reports: No Limitations - History of Present Illness INITIAL COMMENTS - FREE TEXT/NARRATIVE: HISTORY AND PHYSICAL: History of present illness: [Patient comes to the emergency room complaining of cough and chest discomfort to her right chest wall and for the past 4 days. She has a long history of asthma for which she has been using her albuterol inhaler 1-2 times per day. Complains of fatigue, generalized malaise, body aches, wheezing and dry hacking cough. She does not have a thermometer at home. Has felt chills, denies fever. No earaches, runny nose or sore throat. No abdominal pain, nausea or vomiting.] Review of systems: As per history of present illness and below otherwise all systems reviewed and negative. Past medical history: As per history of present illness and as reviewed below otherwise noncontributory. Surgical history: As per history of present illness and as reviewed below otherwise noncontributory. Social history: No reported history of drug or alcohol abuse. Family history: As per history of present illness and as reviewed below otherwise noncontributory. Physical exam: HEENT: Atraumatic, normocephalic. TMs are pearly hunter and without effusion bilaterally. Nares are patent no erythema or discharge. Oral mucous membranes are pink and moist. No tonsillar swelling, erythema or exudate. Throat is clear. Neck supple no lymphadenopathy. Lungs: Clear to auscultation, breath sounds equal bilaterally. No wheezing, crackles or rales. Heart: S1S2, regular rate and rhythm. Abdomen: Soft, nondistended, nontender. Pelvis: Stable nontender. Extremities: Atraumatic. Neurovascular unremarkable. Neuro: Awake, alert, oriented. Motor and sensory unremarkable throughout. Exam nonfocal. Therapeutics: [DuoNeb] Impression: [Cough] Plan: [DuoNeb breathing treatment given in the ER. Patient feels significantly improved after neb treatment and lung sounds continue to be clear to auscultation. She is given a spacer for inhaler and encouraged to use regularly. Follow-up with PCP. She is in agreement with today's plan. All questions are answered and concerns are addressed. She is given a note excusing her from work for today. ] Definitive disposition and diagnosis as appropriate pending reevaluation and review of above. Upper Chest Pain Score (Numeric/FACES): 6 Upper Back Pain Score (Numeric/FACES): 6 - Related Data Allergies Allergy/AdvReac Type Severity Reaction Status Date / Time morphine Allergy Rash Verified 02/26/17 11:11 mushroom Allergy throat Verified 02/26/17 11:12 swelling black olives Allergy throat Uncoded 02/26/17 11:12 swelling Home Meds: Home Meds Cetirizine [ZyrTEC] 10 mg PO DAILY 12/03/16 [History] Escitalopram [Lexapro] 20 mg BEDTIME 01/13/17 [History] Excedrin 01/13/17 [History] Albuterol [Ventolin HFA] INH ASDIRECTED PRN 02/26/17 [History] Past Medical History - Past Health History Medical/Surgical History: Denies Medical/Surgical History HEENT History: Reports: Impaired Vision Other HEENT History: wears eyeglasses Cardiovascular History: Reports: None Respiratory History: Reports: Asthma, Other (See Below) Other Respiratory History: pneumonia. bronchitis Gastrointestinal History: Reports: None Genitourinary History: Reports: None BRASS RECLAIMER History: Reports: None Musculoskeletal History: Reports: None Neurological History: Reports: Migraines Psychiatric History: Reports: Anxiety, Depression, PTSD Endocrine/Metabolic History: Reports: None Hematologic History: Reports: None Immunologic History: Reports: None Oncologic (Cancer) History: Reports: None Dermatologic History: Reports: None - Infectious Disease History Infectious Disease History: Reports: Chicken Pox, Influenza - Past Surgical History Other Musculoskeletal Surgeries/Procedures:: right hand & left knee surgery Social & Family History - Family History Family Medical History: Noncontributory - Tobacco Use Smoking Status *Q: Never Smoker Second Hand Smoke Exposure: No - Caffeine Use Caffeine Use: Reports: Coffee Caffeine Use Comment: 1 cup occasionally - Alcohol Use Days Per Week of Alcohol Use: 0 Number of Drinks Per Day: 1 Total Drinks Per Week: 0 - Recreational Drug Use Recreational Drug Use: No ED ROS GENERAL - Review of Systems Review Of Systems: See Below ED EXAM, GENERAL - Physical Exam Exam: See Below Course - Vital Signs Last Recorded V/S: Last Vital Signs Temp 97.9 F 02/26/17 11:12 Pulse 86 02/26/17 11:12 Resp 20 02/26/17 11:12 BP 130/82 02/26/17 11:12 Pulse Ox 99 02/26/17 11:12 - Orders/Labs/Meds Orders: Active Orders 24 hr Category Date Time Status RT Aerosol Therapy [RC] ASDIRECTED Care 02/26/17 11:36 Active Meds: Medications Discontinued Medications Generic Name Dose Route Start Last Admin Trade Name Fretommie PRN Reason Stop Dose Admin Albuterol/Ipratropium 3 ml 02/26/17 11:36 02/26/17 11:43 Duoneb 3.0-0.5 Mg/3 Ml NEB 02/26/17 11:37 3 ml ONETIME ONE Administration Departure - Departure Time of Disposition: 12:00 Disposition: Home, Self-Care 01 Condition: Good Clinical Impression: Cough - Discharge Information Referrals: PCP,None [Primary Care Provider] - Forms: ED Department Discharge Additional Instructions: The following information is given to patients seen in the emergency department who are being discharged to home. This information is to outline your options for follow-up care. We provide all patients seen in our emergency department with a follow-up referral. The need for follow-up, as well as the timing and circumstances, are variable depending upon the specifics of your emergency department visit. If you don't have a primary care physician on staff, we will provide you with a referral. We always advise you to contact your personal physician following an emergency department visit to inform them of the circumstance of the visit and for follow-up with them and/or the need for any referrals to a consulting specialist. The emergency department will also refer you to a specialist when appropriate. This referral assures that you have the opportunity for follow-up care with a specialist. All of these measure are taken in an effort to provide you with optimal care, which includes your follow-up. Under all circumstances we always encourage you to contact your private physician who remains a resource for coordinating your care. When calling for follow-up care, please make the office aware that this follow-up is from your recent emergency room visit. If for any reason you are refused follow-up, please contact the [facility] emergency department at and asked to speak to the emergency department charge nurse. [facility] [address] [place] [id number] Follow-up with your primary care provider or at the clinic listed above early next week. Use spacer with inhaler. Use inhaler every 4-6 hours as needed for cough, wheezing, chest tightness, shortness of air. Return to ER as needed as discussed. - My Orders Last 24 Hours: My Active Orders 02/26/17 11:36 RT Aerosol Therapy [RC] ASDIRECTED - Assessment/Plan Last 24 Hours: My Active Orders 02/26/17 11:36 RT Aerosol Therapy [RC] ASDIRECTED
[2017-02-26] MEDS ORDERED: Albuterol/Ipratropium 3.0-0.5 MG/3 ML Neb Soln NEB ONE (11:36)
== END 2017-02-26 12:15 | disposition home or self-care (01) ==
LOC: MW.ED 11:06
DX: R05 Cough (principal); J45.909 Unspecified asthma, uncomplicated; Z88.5 Allergy status to narcotic agent; Z79.899 Other long term (current) drug therapy; Z91.018 Allergy to other foods; F41.9 Anxiety disorder, unspecified; F31.9 Bipolar disorder, unspecified
CPT/HCPCS: 94664; 99282

== ENCOUNTER 2017-03-16 17:09 | Emergency (ER) | payer SELFPAY ==
[2017-03-16 17:31] VITALS: BP 132/79
--- NOTE | 2017-03-16 17:39 | EDM.PDOC ---
ED HPI GENERAL MEDICAL PROBLEM - General Chief Complaint: Upper Extremity Injury/Pain Stated Complaint: FALL/LT HAND Time Seen by Provider: 03/16/17 17:17 - History of Present Illness INITIAL COMMENTS - FREE TEXT/NARRATIVE: HISTORY AND PHYSICAL: History of present illness: The patient is a healthy 32-year-old female who presents with complaints of left wrist pain that radiates to her forearm and elbow that started after a simple fall today. The patient states she lost her footing on some stairs and started falling and she grabbed onto the rail with her left hand and wrist and pulled the area. She did not fall on the wrist directly and she did not pass out or black out or hit any other items such as her head neck or back and has no lower extremity complaints. The patient has neurosensory intact in the hand as well as the proximal left upper extremity and she is right-hand dominant. She denies any shoulder humerus or soft tissue forearm pain and says that she only has pain at the elbow when she does certain movements at the wrist. She can wiggle her fingers and has no pain in the hand itself. She took 600 mg of ibuprofen prior to coming here. Review of systems: As per history of present illness and below otherwise all systems reviewed and negative. Past medical history: As per history of present illness and as reviewed below otherwise noncontributory. Surgical history: As per history of present illness and as reviewed below otherwise noncontributory. Social history: No reported history of drug or alcohol abuse. Family history: As per history of present illness and as reviewed below otherwise noncontributory. Physical exam: Gen.: Well-developed well-nourished female who is mildly overweight and nontoxic. She related the ED without distress. HEENT: Atraumatic, normocephalic, negative for conjunctival pallor or scleral icterus, mucous membranes moist, throat clear, neck supple, nontender, trachea midline. Lungs: Clear to auscultation, breath sounds equal bilaterally, chest nontender. Heart: S1S2, regular rate and rhythm no overt murmurs Abdomen: Soft, nondistended, nontender. NABS Pelvis: Deferred Genitourinary: Deferred. Rectal: Deferred. Extremities: Atraumatic appearing throughout all extremities with full range of motion. There is some minimal soft tissue swelling seen at the dorsal aspect of the left wrist but no erythema ecchymosis or palpable bony deformities. Neurovascular is intact distally as well as proximally. There is no forearm soft tissue swelling tenderness or defects and no proximal elbow humerus shoulder or clavicle tenderness or defects. There is mild tenderness at palpation at the ulnar groove but again no fullness swelling or defects. The patient is able to flex and extend at the wrist as well as all digits but there is some discomfort with that. The legs are, negative for cords or calf pain. Neurovascular unremarkable. Neuro: Awake, alert, oriented. Cranial nerves II through XII unremarkable. Cerebellum unremarkable. Motor and sensory unremarkable throughout. Exam nonfocal. Diagnostics: X-ray left wrist Therapeutics: The patient took ibuprofen prior to coming here, Velcro cock-up splint Impression: Left wrist sprain Definitive disposition and diagnosis as appropriate pending reevaluation and review of above. left forearm Pain Score (Numeric/FACES): 6 - Related Data Allergies Allergy/AdvReac Type Severity Reaction Status Date / Time morphine Allergy Rash Verified 03/16/17 17:26 mushroom Allergy throat Verified 03/16/17 17:26 swelling black olives Allergy throat Uncoded 03/16/17 17:26 swelling Home Meds: Home Meds Cetirizine [ZyrTEC] 10 mg PO DAILY 12/03/16 [History] Escitalopram [Lexapro] 20 mg PO BEDTIME 01/13/17 [History] Excedrin 01/13/17 [History] Albuterol [Ventolin HFA] 1 puff INH ASDIRECTED PRN 02/26/17 [History] Past Medical History - Past Health History Medical/Surgical History: Denies Medical/Surgical History HEENT History: Reports: Impaired Vision Other HEENT History: wears eyeglasses Cardiovascular History: Reports: None Respiratory History: Reports: Asthma, Other (See Below) Other Respiratory History: pneumonia. bronchitis Gastrointestinal History: Reports: None Genitourinary History: Reports: None NURSE OFFICE History: Reports: None Musculoskeletal History: Reports: None Neurological History: Reports: Migraines Psychiatric History: Reports: Anxiety, Depression, PTSD Endocrine/Metabolic History: Reports: None Hematologic History: Reports: None Immunologic History: Reports: None Oncologic (Cancer) History: Reports: None Dermatologic History: Reports: None - Infectious Disease History Infectious Disease History: Reports: Chicken Pox, Influenza - Past Surgical History Other Musculoskeletal Surgeries/Procedures:: right hand & left knee surgery Social & Family History - Family History Family Medical History: Noncontributory - Tobacco Use Smoking Status *Q: Never Smoker Second Hand Smoke Exposure: No - Caffeine Use Caffeine Use: Reports: Coffee Caffeine Use Comment: 1 cup occasionally - Alcohol Use Days Per Week of Alcohol Use: 0 Number of Drinks Per Day: 1 Total Drinks Per Week: 0 - Recreational Drug Use Recreational Drug Use: No Review of Systems - Review of Systems Review Of Systems: ROS reveals no pertinent complaints other than HPI. ED EXAM, GENERAL - Physical Exam Exam: See Below (See dictation) Course - Vital Signs Last Recorded V/S: Last Vital Signs Temp 36.6 C 03/16/17 17:09 Pulse 80 03/16/17 17:09 Resp 18 03/16/17 17:09 BP 132/79 03/16/17 17:09 Pulse Ox 98 03/16/17 17:09 - Orders/Labs/Meds Orders: Active Orders 24 hr Category Date Time Status Wrist Comp Min 3V Lt [CR] Stat Exams 03/16/17 17:34 Taken DME for Discharge [COMM] Stat Oth 03/16/17 18:21 Ordered Departure - Departure Time of Disposition: 18:22 Disposition: Home, Self-Care 01 Condition: Good Clinical Impression: Sprain of wrist, left Qualifiers: Encounter type: initial encounter Qualified Code(s): S63.502A - Unspecified sprain of left wrist, initial encounter - Discharge Information Instructions: Wrist Sprain Referrals: PCP,None [Primary Care Provider] - Forms: ED Department Discharge Additional Instructions: The following information is given to patients seen in the emergency department who are being discharged to home. This information is to outline your options for follow-up care. We provide all patients seen in our emergency department with a follow-up referral. The need for follow-up, as well as the timing and circumstances, are variable depending upon the specifics of your emergency department visit. If you don't have a primary care physician on staff, we will provide you with a referral. We always advise you to contact your personal physician following an emergency department visit to inform them of the circumstance of the visit and for follow-up with them and/or the need for any referrals to a consulting specialist. The emergency department will also refer you to a specialist when appropriate. This referral assures that you have the opportunity for followup care with a specialist. All of these measure are taken in an effort to provide you with optimal care, which includes your followup. Under all circumstances we always encourage you to contact your private physician who remains a resource for coordinating your care. When calling for followup care, please make the office aware that this follow-up is from your recent emergency room visit. If for any reason you are refused follow-up, please contact the [facility] emergency department at and ask to speak to the emergency department charge nurse. [facility]- [facility] [address] [place] [id number] [facility] Specialty Care--Orthopedic clinic Professional Building [address] [place] [phone] Ice and elevate the area and use the splint you have been given at all times and only remove at sleep time. Please use [id number] ibuprofen you have or stronger pain medication if needed. Please contact your provider in the clinic or one of our clinic providers for further care and evaluation and follow -up with our ortho specialist as needed using resources given to above. - My Orders Last 24 Hours: My Active Orders 03/16/17 17:34 Wrist Comp Min 3V Lt [CR] Stat 03/16/17 18:21 DME for Discharge [COMM] Stat - Assessment/Plan Last 24 Hours: My Active Orders 03/16/17 17:34 Wrist Comp Min 3V Lt [CR] Stat 03/16/17 18:21 DME for Discharge [COMM] Stat
--- NOTE | 2017-03-17 10:39 | CR ---
EXAM DATE: 03/16/17 PATIENT'S AGE: 32 Patient: MARIANA DOMINGO Facility: [place], [place] Site . Site : 1985 Study: XRay Extremity Left Wrist [id number] 5:57:50 PM Ordering Physician: Ivelisse Chambers Final Report: INDICATION: Trauma. Fell down stairs while holding onto the railing. LEFT WRIST No fracture, dislocation, or destructive lesion of bone is seen. No significant arthritic changes or soft tissue abnormalities are identified. IMPRESSION: Negative left wrist radiographs. LYN AMADOR MD [facility] Dictated by: Renan Amador MD @ 03/16/2017 18:17:12 (Electronic Signature) Report Signed by Proxy. [facility]
== END 2017-03-16 18:24 | disposition home or self-care (01) ==
LOC: MW.ED 17:09
DX: S63.502A Unspecified sprain of left wrist, initial encounter (principal); J45.909 Unspecified asthma, uncomplicated; F32.9 Major depressive disorder, single episode, unspecified; Z79.899 Other long term (current) drug therapy; Z98.890 Other specified postprocedural states; Z88.5 Allergy status to narcotic agent; Z91.018 Allergy to other foods; W19.XXXA Unspecified fall, initial encounter
CPT/HCPCS: 73110-26-LT; 73110-LT; 99283

== ENCOUNTER 2017-03-24 23:52 | Emergency (ER) | payer SELFPAY ==
[2017-03-25] MEDS ORDERED: Ondansetron 4 MG Tab.DIS PO ONE (00:11)
[2017-03-25] MEDS ORDERED: Meclizine 25 MG Tab PO ONE (00:11)
--- NOTE | 2017-03-25 00:11 | EDM.PDOC ---
ED HPI GENERAL MEDICAL PROBLEM - General Chief Complaint: Headache Stated Complaint: SINUS/DIZZY/WEAK Time Seen by Provider: 03/24/17 23:54 - History of Present Illness INITIAL COMMENTS - FREE TEXT/NARRATIVE: HISTORY AND PHYSICAL: History of present illness: The patient is a 32-year-old female who presents with 2 days of a sinus headache and pressure more on the left side as well as a sore throat and a dry hacking cough. She has had some nausea but no vomiting she says that she feels off-balance she's not falling down. She's taken one dose of Benadryl earlier today as well as Motrin prior to coming here for her headache but is not regularly dosing or she using any [id number] antihistamines on any regular basis. She says she had a sinus infection 2 months ago was treated with 10 days of antibiotics and finished those but did not get rechecked. She has no abdominal pain no dysuria frequency no flank pain no chest pain or shortness of breath. Review of systems: As per history of present illness and below otherwise all systems reviewed and negative. Past medical history: As per history of present illness and as reviewed below otherwise noncontributory. Surgical history: As per history of present illness and as reviewed below otherwise noncontributory. Social history: No reported history of drug or alcohol abuse. Family history: As per history of present illness and as reviewed below otherwise noncontributory. Physical exam: HEENT: Atraumatic, normocephalic, pupils reactive, negative for conjunctival pallor or scleral icterus, mucous membranes moist, throat clear, neck supple, nontender, trachea midline. No cervical adenopathy or nuchal rigidity, TMs are slightly dull bilaterally, turbinates are boggy left greater than right and there is sinus tenderness in the maxillary sinuses and frontal sinuses left greater than right Lungs: Clear to auscultation, breath sounds equal bilaterally, chest nontender. Heart: S1S2, regular rate and rhythm no overt murmurs Abdomen: Soft, nondistended, nontender. Negative for masses or hepatosplenomegaly. NABS Pelvis: Stable nontender. Genitourinary: Deferred. Rectal: Deferred. Extremities: Atraumatic, negative for cords or calf pain. Neurovascular unremarkable. Neuro: Awake, alert, oriented. Cranial nerves II through XII unremarkable. Cerebellum unremarkable. Motor and sensory unremarkable throughout. Exam nonfocal. Diagnostics: Rapid strep influenza Therapeutics: Antivert Zofran Impression: Sinusitis with sinus headache Definitive disposition and diagnosis as appropriate pending reevaluation and review of above. Treatments BANK OFFICER: Reports: NSAIDS headache Pain Score (Numeric/FACES): 7 - Related Data Allergies Allergy/AdvReac Type Severity Reaction Status Date / Time morphine Allergy Rash Verified 03/24/17 23:59 mushroom Allergy throat Verified 03/24/17 23:59 swelling black olives Allergy throat Uncoded 03/24/17 23:59 swelling Home Meds: Home Meds Cetirizine [ZyrTEC] 10 mg PO DAILY 12/03/16 [History] Escitalopram [Lexapro] 20 mg PO BEDTIME 01/13/17 [History] Excedrin 1 tab PO ASDIRECTED 01/13/17 [History] Albuterol [Ventolin HFA] 1 puff INH ASDIRECTED PRN 02/26/17 [History] Past Medical History - Past Health History Medical/Surgical History: Denies Medical/Surgical History HEENT History: Reports: Impaired Vision Other HEENT History: wears eyeglasses Cardiovascular History: Reports: None Respiratory History: Reports: Asthma, Other (See Below) Other Respiratory History: pneumonia. bronchitis Gastrointestinal History: Reports: None Genitourinary History: Reports: None PATIENT'S LIBRARIAN History: Reports: None Musculoskeletal History: Reports: None Neurological History: Reports: Migraines Psychiatric History: Reports: Anxiety, Depression, PTSD Endocrine/Metabolic History: Reports: None Hematologic History: Reports: None Immunologic History: Reports: None Oncologic (Cancer) History: Reports: None Dermatologic History: Reports: None - Infectious Disease History Infectious Disease History: Reports: Chicken Pox - Past Surgical History Head Surgeries/Procedures: Reports: None Other Musculoskeletal Surgeries/Procedures:: right hand & left knee surgery Social & Family History - Family History Family Medical History: Noncontributory - Tobacco Use Smoking Status *Q: Current Status Unknown Second Hand Smoke Exposure: No - Caffeine Use Caffeine Use: Reports: Coffee, Soda Caffeine Use Comment: 1 cup occasionally - Alcohol Use Days Per Week of Alcohol Use: 0 Number of Drinks Per Day: 1 Total Drinks Per Week: 0 - Recreational Drug Use Recreational Drug Use: No ED ROS GENERAL - Review of Systems Review Of Systems: ROS reveals no pertinent complaints other than HPI. ED EXAM, GENERAL - Physical Exam Exam: See Below (See dictation) Course - Vital Signs Last Recorded V/S: Last Vital Signs Temp 36.5 C 03/25/17 00:00 Pulse 80 03/25/17 00:00 Resp 18 03/25/17 00:00 BP 131/86 03/25/17 00:00 Pulse Ox 97 03/25/17 00:00 - Orders/Labs/Meds Orders: Active Orders 24 hr Category Date Time Status CULTURE STREP A CONFIRMATION [RM] Stat Lab 03/25/17 00:10 Results STREP SCRN A RAPID W CULT CONF [RM] Stat Lab 03/25/17 00:10 Results Meds: Medications Discontinued Medications Generic Name Dose Route Start Last Admin Trade Name Freq PRN Reason Stop Dose Admin Meclizine HCl 25 mg 03/25/17 00:11 03/25/17 00:16 Antivert PO 03/25/17 00:12 25 mg ONETIME ONE Administration Ondansetron HCl 4 mg 03/25/17 00:11 03/25/17 00:16 Zofran Odt PO 03/25/17 00:12 4 mg ONETIME ONE Administration Departure - Departure Time of Disposition: 01:04 Disposition: Home, Self-Care 01 Condition: Good Clinical Impression: Sinusitis, Sinus headache - Discharge Information Referrals: PCP,None [Primary Care Provider] - Forms: ED Department Discharge Additional Instructions: The following information is given to patients seen in the emergency department who are being discharged to home. This information is to outline your options for follow-up care. We provide all patients seen in our emergency department with a follow-up referral. The need for follow-up, as well as the timing and circumstances, are variable depending upon the specifics of your emergency department visit. If you don't have a primary care physician on staff, we will provide you with a referral. We always advise you to contact your personal physician following an emergency department visit to inform them of the circumstance of the visit and for follow-up with them and/or the need for any referrals to a consulting specialist. The emergency department will also refer you to a specialist when appropriate. This referral assures that you have the opportunity for followup care with a specialist. All of these measure are taken in an effort to provide you with optimal care, which includes your followup. Under all circumstances we always encourage you to contact your private physician who remains a resource for coordinating your care. When calling for followup care, please make the office aware that this follow-up is from your recent emergency room visit. If for any reason you are refused follow-up, please contact the [facility] emergency department at and ask to speak to the emergency department charge nurse. [facility] Primary care- [place] [address] Push hydration and rest. Take medications as prescribed and also add over-the- counter Claritin or Marilee to be taken for the next 10-14 days. You can also add Benadryl for sleep time. Use [id number] Tylenol every 6 hours for headache pain as well as ibuprofen every 6 hours. Only take the tramadol at sleep times as needed for headache pain Please call and follow-up in the clinic for reevaluation and further care as he may need more treatment from this infection. Return to ER as needed and as discussed - My Orders Last 24 Hours: My Active Orders 03/25/17 00:10 CULTURE STREP A CONFIRMATION [RM] Stat STREP SCRN A RAPID W CULT CONF [] Stat - Assessment/Plan Last 24 Hours: My Active Orders 03/25/17 00:10 CULTURE STREP A CONFIRMATION [RM] Stat STREP SCRN A RAPID W CULT CONF [] Stat
[2017-03-25 01:29] VITALS: BP 124/78
== END 2017-03-25 01:10 | disposition home or self-care (01) ==
LOC: MW.ED 23:52
DX: J32.9 Chronic sinusitis, unspecified (principal); J45.909 Unspecified asthma, uncomplicated; Z88.5 Allergy status to narcotic agent; Z79.899 Other long term (current) drug therapy
CPT/HCPCS: 87081; 87804; 87880; 99284; A9270; 99283

== ENCOUNTER 2017-04-29 05:51 | Emergency (ER) | payer SELFPAY ==
[2017-04-29] MEDS ORDERED: Ibuprofen 800 MG Tab PO ONE (06:12)
--- NOTE | 2017-04-29 06:14 | EDM.PDOC ---
ED HPI GENERAL MEDICAL PROBLEM - General Chief Complaint: ENT Problem Stated Complaint: LEFT EAR PAIN Time Seen by Provider: 04/29/17 06:05 - History of Present Illness INITIAL COMMENTS - FREE TEXT/NARRATIVE: HISTORY AND PHYSICAL: History of present illness: Patient is a 32-year-old female who has no provider in the clinic and presents with left ear pain that woke her from sleep 10 minutes prior to coming to the ER. The patient says that she has had a sore throat for a few days without any ear pain and then went to sleep last evening without a fever cough runny nose nausea or vomiting. She woke with the ear pain and says that there is nothing in the ear and she has not gotten any water or any other solutions in there. She did not take any medications prior to coming here. She has no chest pain or shortness of breath and has been eating and drinking normally. I discussed with the patient her frequent ER visits-- which include 10 visits in the last 9 months --and discussed with her the need for follow-up in the clinic. She states she has not called on any of these prior ER visits to get a follow-up appointment in the clinic with states understanding in the need for personal follow-up with the physician who can get to know her. Patient denies . Patient has no abdominal pain nausea vomiting or diarrhea.. Review of systems: As per history of present illness and below otherwise all systems reviewed and negative. Past medical history: As per history of present illness and as reviewed below otherwise noncontributory. Surgical history: As per history of present illness and as reviewed below otherwise noncontributory. Social history: No reported history of drug or alcohol abuse. Family history: As per history of present illness and as reviewed below otherwise noncontributory. Physical exam: Gen.: Well-developed well-nourished female who is overweight and vital signs of been reviewed by me. She is nontoxic and speaking clearly and easily in the ED without distress. HEENT: Atraumatic, normocephalic, pupils reactive, negative for conjunctival pallor or scleral icterus, mucous membranes moist, throat clear of exudates but the posterior oropharynx has some erythema, there is no cervical adenopathy or nuchal rigidity and no mastoid tenderness or redness, neck supple, nontender, trachea midline. The TM on the right is slightly dulled and there is no fluid in the external canal or debris. The left TM is slightly red but is not bulging and there is no fluid behind the TM. Lungs: Clear to auscultation, breath sounds equal bilaterally, chest nontender. Heart: S1S2, regular rate and rhythm no overt murmurs Abdomen: Soft, nondistended, nontender. NABS Pelvis: Deferred Genitourinary: Deferred. Rectal: Deferred. Extremities: Atraumatic, range of motion without defects or deficits Neurovascular unremarkable. Neuro: Awake, alert, oriented. Cranial nerves II through XII unremarkable. Cerebellum unremarkable. Motor and sensory unremarkable throughout. Exam nonfocal. Diagnostics: Rapid strep Therapeutics: Renaldo I discussed with the patient that she should be using [id number] Tylenol and/or ibuprofen for pain management she states understanding. I will also give her referrals for clinic again that she connect with her own clinic physicians for further care and evaluation. I did discuss with the patient that the left TM does look slightly red but is not bulging or having any fluid indicative of an otitis media nor does she have any signs of otitis externa. At this point is just isolated ear pain and we may be not seeing the full plications of this pain at this time because the symptoms literally started less than half an hour ago. I told her this would be an example of the need for follow-up in the clinic as this pain may evolve needing further treatment. She states understanding. Impression: Left otalgia Definitive disposition and diagnosis as appropriate pending reevaluation and review of above. left ear Pain Score (Numeric/FACES): 8 - Related Data Allergies Allergy/AdvReac Type Severity Reaction Status Date / Time morphine Allergy Rash Verified 04/29/17 05:56 mushroom Allergy throat Verified 04/29/17 05:56 swelling black olives Allergy throat Uncoded 04/29/17 05:56 swelling Home Meds: Home Meds Cetirizine [ZyrTEC] 10 mg PO DAILY 12/03/16 [History] Albuterol [Ventolin HFA] 1 puff INH ASDIRECTED PRN 02/26/17 [History] Past Medical History - Past Health History Medical/Surgical History: Denies Medical/Surgical History HEENT History: Reports: Impaired Vision Other HEENT History: wears eyeglasses Cardiovascular History: Reports: None Respiratory History: Reports: Asthma, Other (See Below) Other Respiratory History: pneumonia. bronchitis Gastrointestinal History: Reports: None Genitourinary History: Reports: None SPECIAL TECHNICAL OPERATIONS OFFICER History: Reports: None Musculoskeletal History: Reports: None Neurological History: Reports: Migraines Psychiatric History: Reports: Anxiety, Depression, PTSD Endocrine/Metabolic History: Reports: None Hematologic History: Reports: None Immunologic History: Reports: None Oncologic (Cancer) History: Reports: None Dermatologic History: Reports: None - Infectious Disease History Infectious Disease History: Reports: Chicken Pox - Past Surgical History Head Surgeries/Procedures: Reports: None Other Musculoskeletal Surgeries/Procedures:: right hand & left knee surgery Social & Family History - Family History Family Medical History: Noncontributory - Tobacco Use Smoking Status *Q: Never Smoker Second Hand Smoke Exposure: No - Caffeine Use Caffeine Use: Reports: Coffee, Soda Caffeine Use Comment: 1 cup occasionally - Alcohol Use Days Per Week of Alcohol Use: 0 Number of Drinks Per Day: 1 Total Drinks Per Week: 0 - Recreational Drug Use Recreational Drug Use: No ED ROS GENERAL - Review of Systems Review Of Systems: ROS reveals no pertinent complaints other than HPI. ED EXAM, GENERAL - Physical Exam Exam: See Below (See dictation) Course - Vital Signs Last Recorded V/S: Last Vital Signs Temp 36.2 C 04/29/17 05:51 Pulse 75 04/29/17 05:51 Resp 18 04/29/17 05:51 BP 136/69 04/29/17 05:51 Pulse Ox - Orders/Labs/Meds Orders: Active Orders 24 hr Category Date Time Status CULTURE STREP A CONFIRMATION [] Stat Lab 04/29/17 06:15 Results STREP SCRN A RAPID W CULT CONF [] Stat Lab 04/29/17 06:15 Results Meds: Medications Discontinued Medications Generic Name Dose Route Start Last Admin Trade Name Freq PRN Reason Stop Dose Admin Ibuprofen 800 mg 04/29/17 06:12 04/29/17 06:16 Motrin PO 04/29/17 06:13 800 mg ONETIME ONE Administration Departure - Departure Time of Disposition: 06:37 Disposition: Home, Self-Care 01 Condition: Good Clinical Impression: Otalgia of left ear - Discharge Information Referrals: PCP,None [Primary Care Provider] - Forms: ED Department Discharge Additional Instructions: The following information is given to patients seen in the emergency department who are being discharged to home. This information is to outline your options for follow-up care. We provide all patients seen in our emergency department with a follow-up referral. The need for follow-up, as well as the timing and circumstances, are variable depending upon the specifics of your emergency department visit. If you don't have a primary care physician on staff, we will provide you with a referral. We always advise you to contact your personal physician following an emergency department visit to inform them of the circumstance of the visit and for follow-up with them and/or the need for any referrals to a consulting specialist. The emergency department will also refer you to a specialist when appropriate. This referral assures that you have the opportunity for followup care with a specialist. All of these measure are taken in an effort to provide you with optimal care, which includes your followup. Under all circumstances we always encourage you to contact your private physician who remains a resource for coordinating your care. When calling for followup care, please make the office aware that this follow-up is from your recent emergency room visit. If for any reason you are refused follow-up, please contact the [facility] emergency department at and ask to speak to the emergency department charge nurse. Primary care- Internal Medicine and Family [address] [address] Please call the clinic at 8 AM for a follow-up appointment in the clinic in the next few days and use [id number] Tylenol and/or ibuprofen for pain management. But nothing in the ear until you're followed up in the clinic. Push hydration and rest and return to ER as needed and as discussed - My Orders Last 24 Hours: My Active Orders 04/29/17 06:15 CULTURE STREP A CONFIRMATION [RM] Stat STREP SCRN A RAPID W CULT CONF [] Stat - Assessment/Plan Last 24 Hours: My Active Orders 04/29/17 06:15 CULTURE STREP A CONFIRMATION [RM] Stat STREP SCRN A RAPID W CULT CONF [] Stat
[2017-04-29 06:41] VITALS: BP 129/88
== END 2017-04-29 06:50 | disposition home or self-care (01) ==
LOC: MW.ED 05:51
DX: H92.02 Otalgia, left ear (principal); J45.909 Unspecified asthma, uncomplicated; Z79.899 Other long term (current) drug therapy; Z88.5 Allergy status to narcotic agent; Z91.018 Allergy to other foods
CPT/HCPCS: 87081; 87880; 99283; A9270; 99282

== ENCOUNTER 2017-05-31 13:15 | Emergency (ER) | payer SELFPAY ==
[2017-05-31 13:33] VITALS: BP 153/81
[2017-05-31] MEDS ORDERED: Sodium Chloride 0.9% 1,000 ML IV ONE (13:36)
[2017-05-31] MEDS ORDERED: Ondansetron 4 MG/2 ML SDV IVPUSH ONE ×2 (13:36→14:36)
[2017-05-31] MEDS ORDERED: Ondansetron 4 MG/2 ML SDV ONE (14:04)
[2017-05-31 14:51] LABS: CHLORIDE,CL 104 mmol/L (98-110); SODIUM,NA 139 mmol/L (136-146)
--- NOTE | 2017-05-31 17:38 | EDM.PDOC ---
ED HPI GENERAL MEDICAL PROBLEM - General Chief Complaint: Gastrointestinal Problem Stated Complaint: VOMITING AND DIARRHEA Time Seen by Provider: 05/31/17 13:45 Source of Information: Reports: Patient History Limitations: Reports: No Limitations - History of Present Illness INITIAL COMMENTS - FREE TEXT/NARRATIVE: HISTORY AND PHYSICAL: History of present illness: Patient is a 32-year-old female who presents to the emergency room today with complaints of nausea, vomiting, diarrhea since midnight. She states she has not eaten any new foods. Nobody in the household has any similar symptoms. Denies any headache, chest pain, shortness of breath, fever, chills, dysuria. Denies any blood in her stools. Denies any near syncope. Has not had the [id number] influenza vaccine, stating "I've already had the flu this year" Last menstrual period was 05/18/2017 Review of systems: As per history of present illness and below otherwise all systems reviewed and negative. Past medical history: As per history of present illness and as reviewed below otherwise noncontributory. Surgical history: As per history of present illness and as reviewed below otherwise noncontributory. Social history: No reported history of drug or alcohol abuse. Family history: As per history of present illness and as reviewed below otherwise noncontributory. Physical exam: Gen.: Well-developed and well-nourished 32-year-old female. Alert and oriented. Appears nontoxic and in no acute distress. HEENT: Atraumatic, normocephalic, pupils reactive, negative for conjunctival pallor or scleral icterus, mucous membranes moist, throat clear, neck supple, nontender, trachea midline. Lungs: Clear to auscultation, breath sounds equal bilaterally, chest nontender. Heart: S1S2, regular rate and rhythm without overt murmurs Abdomen: Soft, nondistended, diffuse tenderness left lower quadrant with deep palpation. Negative for masses or hepatosplenomegaly. Negative for costovertebral tenderness. Pelvis: Stable nontender. Genitourinary: Deferred. Rectal: Deferred. Extremities: Atraumatic, moves all extremities per self with full range of motion without difficulty or deficits, negative for cords or calf pain. Neurovascular unremarkable. Neuro: Awake, alert, oriented. Cranial nerves II through XII unremarkable. Cerebellum unremarkable. Motor and sensory unremarkable throughout. Exam nonfocal. Patient states she does feel improved after receiving the IV fluids and Zofran. Will prescribe the patient 10 tablets of Zofran ODT for home use. We discussed comfort measures to stay comfortable while the mass runs its course. Instructed her to either follow up with her primary caregiver or return to the ED if her symptoms do not improve or worsen. She voices understanding and is agreeable to plan of care. She denies any further questions at this time. Diagnostics: CBC, CMP, UA, urine Therapeutics: IV fluid, Zofran Impression: Viral gastroenteritis Plan: 1. Please take your Zofran as prescribed. 2. Supportive care measures such as: Tylenol and ibuprofen as needed for pain and fever management, bland diet and advance as tolerated, small frequent sips of fluids to prevent dehydration, and rest. 3. Please follow-up with your primary caregiver in the next 1-2 days. Return to the ED as needed and as discussed. Definitive disposition and diagnosis as appropriate pending reevaluation and review of above. Onset: Today Duration: Hour(s): Location: Reports: Generalized Body Aches Pain Score (Numeric/FACES): 7 - Related Data Allergies Allergy/AdvReac Type Severity Reaction Status Date / Time morphine Allergy Rash Verified 05/31/17 13:31 mushroom Allergy throat Verified 05/31/17 13:31 swelling black olives Allergy throat Uncoded 05/31/17 13:31 swelling Home Meds: Home Meds Cetirizine [ZyrTEC] 10 mg PO DAILY 12/03/16 [History] Albuterol [Ventolin HFA] 1 puff INH ASDIRECTED PRN 02/26/17 [History] Past Medical History - Past Health History Medical/Surgical History: Denies Medical/Surgical History HEENT History: Reports: Impaired Vision Other HEENT History: wears eyeglasses Cardiovascular History: Reports: None Respiratory History: Reports: Asthma, Bronchitis, Recurrent, Other (See Below) Other Respiratory History: pneumonia. 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: Reports: None Musculoskeletal History: Reports: None Neurological History: Reports: Migraines Psychiatric History: Reports: Anxiety, Depression, PTSD Endocrine/Metabolic History: Reports: None Hematologic History: Reports: None Immunologic History: Reports: None Oncologic (Cancer) History: Reports: None Dermatologic History: Reports: None - Infectious Disease History Infectious Disease History: Reports: Chicken Pox - Past Surgical History Head Surgeries/Procedures: Reports: None Musculoskeletal Surgical History: Reports: Other (See Below) Other Musculoskeletal Surgeries/Procedures:: right hand & left knee surgery Social & Family History - Family History Family Medical History: Noncontributory - Tobacco Use Smoking Status *Q: Never Smoker Second Hand Smoke Exposure: No - Caffeine Use Caffeine Use: Reports: Coffee, Soda Caffeine Use Comment: 1 cup occasionally - Alcohol Use Days Per Week of Alcohol Use: 0 Number of Drinks Per Day: 1 Total Drinks Per Week: 0 - Recreational Drug Use Recreational Drug Use: No ED ROS GENERAL - Review of Systems Review Of Systems: ROS reveals no pertinent complaints other than HPI. ED EXAM, GI/ABD - Physical Exam Exam: See Below (See dictation) Course - Vital Signs Last Recorded V/S: Last Vital Signs Temp 98.5 F 05/31/17 13:32 Pulse 122 H 05/31/17 13:32 Resp 18 05/31/17 13:32 BP 153/81 H 05/31/17 13:32 Pulse Ox 97 05/31/17 13:32 - Orders/Labs/Meds Orders: Active Orders 24 hr Category Date Time Status CBC WITH AUTO DIFF [HEME] Stat Lab 05/31/17 13:36 Ordered COMPREHENSIVE METABOLIC PN,CMP [CHEM] Stat Lab 05/31/17 13:36 Ordered UA W/MICROSCOPIC [URIN] Stat Lab 05/31/17 13:56 Ordered Ondansetron [Zofran] Med 05/31/17 13:36 Once 4 mg IVPUSH ONETIME ONE Ondansetron [Zofran] Med 05/31/17 14:36 Once 4 mg IVPUSH ONETIME ONE Sodium Chloride 0.9% [Normal Saline] 1,000 ml Med 05/31/17 13:36 Ordered IV STAT Departure - Departure Time of Disposition: 16:15 Disposition: Home, Self-Care 01 Clinical Impression: Viral gastroenteritis - Discharge Information Referrals: PCP,None [Primary Care Provider] - Forms: ED Department Discharge Additional Instructions: My general discharge The following information is given to patients seen in the emergency department who are being discharged to home. This information is to outline your options for follow-up care. We provide all patients seen in our emergency department with a follow-up referral. The need for follow-up, as well as the timing and circumstances, are variable depending upon the specifics of your emergency department visit. If you don't have a primary care physician on staff, we will provide you with a referral. We always advise you to contact your personal physician following an emergency department visit to inform them of the circumstance of the visit and for follow-up with them and/or the need for any referrals to a consulting specialist. The emergency department will also refer you to a specialist when appropriate. This referral assures that you have the opportunity for follow-up care with a specialist. All of these measure are taken in an effort to provide you with optimal care, which includes your follow-up. Under all circumstances we always encourage you to contact your private physician who remains a resource for coordinating your care. When calling for follow-up care, please make the office aware that this follow-up is from your recent emergency room visit. If for any reason you are refused follow-up, please contact the [facility] Emergency Department at and asked to speak to the emergency department charge nurse. [facility] [address] [place] [id number] 1. Please take your Zofran as prescribed. 2. Supportive care measures such as: Tylenol and ibuprofen as needed for pain and fever management, bland diet and advance as tolerated, small frequent sips of fluids to prevent dehydration, and rest. 3. Please follow-up with your primary caregiver in the next 1-2 days. Return to the ED as needed and as discussed. - My Orders Last 24 Hours: My Active Orders 05/31/17 13:36 CBC WITH AUTO DIFF [HEME] Stat COMPREHENSIVE METABOLIC PN,CMP [CHEM] Stat Ondansetron [Zofran] 4 mg IVPUSH ONETIME ONE Sodium Chloride 0.9% [Normal Saline] 1,000 ml IV STAT 05/31/17 13:56 UA W/MICROSCOPIC [URIN] Stat 05/31/17 14:36 Ondansetron [Zofran] 4 mg IVPUSH ONETIME ONE - Assessment/Plan Last 24 Hours: My Active Orders 05/31/17 13:36 CBC WITH AUTO DIFF [HEME] Stat COMPREHENSIVE METABOLIC PN,CMP [CHEM] Stat Ondansetron [Zofran] 4 mg IVPUSH ONETIME ONE Sodium Chloride 0.9% [Normal Saline] 1,000 ml IV STAT 05/31/17 13:56 UA W/MICROSCOPIC [URIN] Stat 05/31/17 14:36 Ondansetron [Zofran] 4 mg IVPUSH ONETIME ONE
== END 2017-05-31 16:25 | disposition home or self-care (01) ==
LOC: MW.ED 13:15
DX: A08.4 Viral intestinal infection, unspecified (principal); Z88.5 Allergy status to narcotic agent; Z79.899 Other long term (current) drug therapy
CPT/HCPCS: 36415; 80053; 81001; 85025; 96361; 96374; 99283; 99283-25

== ENCOUNTER 2017-07-31 16:33 | Emergency (ER) | payer SELFPAY ==
[2017-07-31 16:51] VITALS: BP 127/86
--- NOTE | 2017-07-31 16:56 | EDM.PDOC ---
ED HPI GENERAL MEDICAL PROBLEM - General Chief Complaint: Respiratory Problem Stated Complaint: COUGH/CHEST PAIN Time Seen by Provider: 07/31/17 16:55 Source of Information: Reports: Patient History Limitations: Reports: No Limitations - History of Present Illness INITIAL COMMENTS - FREE TEXT/NARRATIVE: HISTORY AND PHYSICAL: []32-year-old female presenting with cough cold-like symptoms History of Present Illness: []Patient has been sick for the last 2 days cough cold fever Review of Systems: As per history of present illness and below otherwise all systems reviewed and negative. Past medical history: As per history of present illness and as reviewed below otherwise noncontributory. Surgical history: As per history of present illness and as reviewed below otherwise noncontributory. Social history: No reported history of drug or alcohol abuse. Family history: As per history of present illness and as reviewed below otherwise noncontributory. Physical exam: Alert and oriented female answering questions appropriately she looks quite miserable. HEENT: Atraumatic, normocehpalic, pupils reactive, negative for conjunctival pallor or scleral icterus, mucous membranes moist, throat clear, neck supple, nontender, trachea midline. Lungs: Clear to auscultation, breath sounds equal bilaterally, chest non tender. Heart: S1S2, regular, negative for clicks, rubs, or JVD. Abdomen: Soft, nondistended, nontender. Negative for masses or hepatossplenmegaly. Negative for costovertebral tenderness. Pelvis: Stable nontender. Genitourinary: Deferred. Rectal: Deferred Extremities: Atraumatic, negative for cords or calf pain. Neurovascular unremarkable. Neuro: Awake, alert, oriented. Cranial nerves II through XII unremarkable. Cerebellum unremarkable. Motor and sensory unremarkable throughout. Exam nonfocal. Diagnostics: [Rapid strep influenza] Therapeutics: [] Impression: [Viral syndrome Flulike illness] Plan: Discharge to home [Rest do not go to work the next 3 days Follow-up with your primary care if not improving] Definitive disposition and diagnosis as appropriate pending reevaluation and review of above. Onset: Gradual Duration: Day(s): (2) Location: Reports: Generalized Quality: Reports: Ache Severity: Moderate Improves with: Reports: None Worsens with: Reports: None headache Pain Score (Numeric/FACES): 6 - Related Data Allergies Allergy/AdvReac Type Severity Reaction Status Date / Time morphine Allergy Rash Verified 07/31/17 16:43 mushroom Allergy throat Verified 07/31/17 16:43 swelling black olives Allergy throat Uncoded 07/31/17 16:43 swelling Home Meds: Home Meds Cetirizine [ZyrTEC] 10 mg PO DAILY 12/03/16 [History] Past Medical History - Past Health History Medical/Surgical History: Denies Medical/Surgical History HEENT History: Reports: Impaired Vision Other HEENT History: wears eyeglasses Cardiovascular History: Reports: None Respiratory History: Reports: Asthma, Bronchitis, Recurrent, Other (See Below) Other Respiratory History: pneumonia. 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: Reports: None Musculoskeletal History: Reports: None Neurological History: Reports: Migraines Psychiatric History: Reports: Anxiety, Depression, PTSD Endocrine/Metabolic History: Reports: None Hematologic History: Reports: None Immunologic History: Reports: None Oncologic (Cancer) History: Reports: None Dermatologic History: Reports: None - Infectious Disease History Infectious Disease History: Reports: Chicken Pox - Past Surgical History Head Surgeries/Procedures: Reports: None Musculoskeletal Surgical History: Reports: Other (See Below) Other Musculoskeletal Surgeries/Procedures:: right hand & left knee surgery Social & Family History - Family History Family Medical History: Noncontributory - Tobacco Use Smoking Status *Q: Never Smoker Second Hand Smoke Exposure: No - Caffeine Use Caffeine Use: Reports: Coffee, Soda Caffeine Use Comment: 1 cup occasionally - Alcohol Use Days Per Week of Alcohol Use: 0 Number of Drinks Per Day: 1 Total Drinks Per Week: 0 - Recreational Drug Use Recreational Drug Use: No ED ROS GENERAL - Review of Systems Review Of Systems: ROS reveals no pertinent complaints other than HPI. ED EXAM, GENERAL - Physical Exam Exam: See Below (see dictation) Course - Vital Signs Last Recorded V/S: Last Vital Signs Temp 36.7 C 07/31/17 16:44 Pulse 70 07/31/17 16:44 Resp 18 07/31/17 16:44 BP 127/86 07/31/17 16:44 Pulse Ox 98 07/31/17 16:44 - Orders/Labs/Meds Orders: Active Orders 24 hr Category Date Time Status CULTURE STREP A CONFIRMATION [RM] Stat Lab 07/31/17 17:02 Results STREP SCRN A RAPID W CULT CONF [RM] Stat Lab 07/31/17 17:02 Results Departure - Departure Time of Disposition: 18:12 Disposition: Home, Self-Care 01 Condition: Good Clinical Impression: Viral syndrome - Discharge Information Referrals: PCP,None [Primary Care Provider] - Forms: ED Department Discharge Additional Instructions: The following information is given to patients seen in the emergency department who are being discharged to home. This information is to outline your options for follow-up care. We provide all patients seen in our emergency department with a follow-up referral. The need for follow-up, as well as the timing and circumstances, are variable depending upon the specifics of your emergency department visit. If you don't have a primary care physician on staff, we will provide you with a referral. We always advise you to contact your personal physician following an emergency department visit to inform them of the circumstance of the visit and for follow-up with them and/or the need for any referrals to a consulting specialist. The emergency department will also refer you to a specialist when appropriate. This referral assures that you have the opportunity for followup care with a specialist. All of these measure are taken in an effort to provide you with optimal care, which includes your followup. Under all circumstances we always encourage you to contact your private physician who remains a resource for coordinating your care. When calling for followup care, please make the office aware that this follow-up is from your recent emergency room visit. If for any reason you are refused follow-up, please contact the [facility] emergency department at and asked to speak to the emergency department charge nurse. Follow-up with your primary care if not improving. Note to stay home from work has been issued - My Orders Last 24 Hours: My Active Orders 07/31/17 17:02 CULTURE STREP A CONFIRMATION [RM] Stat STREP SCRN A RAPID W CULT CONF [RM] Stat - Assessment/Plan Last 24 Hours: My Active Orders 07/31/17 17:02 CULTURE STREP A CONFIRMATION [RM] Stat STREP SCRN A RAPID W CULT CONF [RM] Stat
== END 2017-07-31 18:30 | disposition home or self-care (01) ==
LOC: MW.ED 16:33
DX: B34.9 Viral infection, unspecified (principal); Z79.899 Other long term (current) drug therapy; Z88.5 Allergy status to narcotic agent; Z91.018 Allergy to other foods
CPT/HCPCS: 87081; 87804; 87880; 99282; 99283

== ENCOUNTER 2017-11-13 17:57 | Emergency (ER) | payer BC ==
[2017-11-13] MEDS ORDERED: Albuterol/Ipratropium 3.0-0.5 MG/3 ML Neb Soln NEB ONE (18:11)
--- NOTE | 2017-11-13 18:11 | EDM.PDOC ---
ED HPI GENERAL MEDICAL PROBLEM - General Chief Complaint: Respiratory Problem Stated Complaint: SHORTNESS OF BREATH Time Seen by Provider: 11/13/17 18:09 Source of Information: Reports: Patient History Limitations: Reports: No Limitations - History of Present Illness INITIAL COMMENTS - FREE TEXT/NARRATIVE: HISTORY AND PHYSICAL: History of present illness: Patient is a 32-year-old female who presents to the emergency room with complaints of dyspnea and cough 1 week. 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 Today she was cleaning under a shelf which she reports has not been cleaned some time. She denies any fever, chest pain, abdominal pain, nausea, vomiting or diarrhea/constipation. He shouldn't has past medical history of asthma which she uses inhalers as needed and pneumonia. Review of systems: As per history of present illness and below otherwise all systems reviewed and negative. Past medical history: As per history of present illness and as reviewed below otherwise noncontributory. Surgical history: As per history of present illness and as reviewed below otherwise noncontributory. Social history: No reported history of drug or alcohol abuse. Family history: As per history of present illness and as reviewed below otherwise noncontributory. Physical exam: General: Well-developed and well-nourished 52-year-old female. Alert and oriented. Nontoxic appearing and in no acute distress. HEENT: Atraumatic, normocephalic, pupils equal and reactive bilaterally, negative for conjunctival pallor or scleral icterus, mucous membranes moist, throat clear, neck supple, nontender, trachea midline. No drooling or trismus noted. No meningeal signs Lungs: Clear to auscultation with slightly diminshed bases, breath sounds equal bilaterally, chest nontender. Heart: S1S2, regular rate and rhythm without overt murmur Abdomen: Soft, nondistended, nontender. Negative for masses or hepatosplenomegaly. Negative for costovertebral tenderness. Pelvis: Stable nontender. Genitourinary: Deferred. Rectal: Deferred. Skin: Intact, warm, dry. No lesions or rashes noted. Extremities: Atraumatic, negative for cords or calf pain. Neurovascular unremarkable. Neuro: Awake, alert, oriented. Cranial nerves II through XII unremarkable. Cerebellum unremarkable. Motor and sensory unremarkable throughout. Exam nonfocal. Notes: Or comfortable give patient a DuoNeb neb. Her vital signs are stable. Due to her health history we'll give her Medrol Dosepak and Z-Fidel. Diagnostics: [] Therapeutics: DuoNeb, Solu-Medrol, 500mg Zithromycin Impression: Bronchitis Plan: 1. Please take your antibiotic and steroid as directed. 2. Use your inhaler as needed. Please wear a protective mask while at work when handling chemical exposures. 3. I'll up with her primary caregiver in the next 1-2 days. Return to the ED as needed and as discussed. Definitive disposition and diagnosis as appropriate pending reevaluation and review of above. Duration: Week(s): Location: Reports: Chest Chest Pain Score (Numeric/FACES): 7 Upper Back Pain Score (Numeric/FACES): 7 - Related Data Allergies Allergy/AdvReac Type Severity Reaction Status Date / Time morphine Allergy Rash Verified 11/13/17 18:11 mushroom Allergy throat Verified 11/13/17 18:11 swelling black olives Allergy throat Uncoded 07/31/17 16:43 swelling Home Meds: Home Meds Montelukast [Singulair] 10 mg PO DAILY 11/13/17 [History] Past Medical History - Past Health History Medical/Surgical History: Denies Medical/Surgical History HEENT History: Reports: Impaired Vision Other HEENT History: wears eyeglasses Cardiovascular History: Reports: None Respiratory History: Reports: Asthma, Bronchitis, Recurrent, Other (See Below) Other Respiratory History: pneumonia. 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 Musculoskeletal History: Reports: None Neurological History: Reports: Migraines Psychiatric History: Reports: Anxiety, Depression, PTSD Endocrine/Metabolic History: Reports: None Hematologic History: Reports: None Immunologic History: Reports: None Oncologic (Cancer) History: Reports: None Dermatologic History: Reports: None - Infectious Disease History Infectious Disease History: Reports: Chicken Pox - Past Surgical History Head Surgeries/Procedures: Reports: None Musculoskeletal Surgical History: Reports: Other (See Below) Other Musculoskeletal Surgeries/Procedures:: right hand & left knee surgery Social & Family History - Family History Family Medical History: Noncontributory - Caffeine Use Caffeine Use: Reports: Coffee, Soda Caffeine Use Comment: 1 cup occasionally ED ROS GENERAL - Review of Systems Review Of Systems: ROS reveals no pertinent complaints other than HPI. ED EXAM, GENERAL - Physical Exam Exam: See Below (See dictation) Course - Vital Signs Last Recorded V/S: Last Vital Signs Temp 98.2 F 11/13/17 18:12 Pulse 76 11/13/17 18:12 Resp 18 11/13/17 18:12 BP 135/83 11/13/17 18:12 Pulse Ox 99 11/13/17 18:12 - Orders/Labs/Meds Orders: Active Orders 24 hr Category Date Time Status RT Aerosol Therapy [RC] ASDIRECTED Care 11/13/17 18:11 Active Meds: Medications Discontinued Medications Generic Name Dose Route Start Last Admin Trade Name Freq PRN Reason Stop Dose Admin Albuterol/Ipratropium 3 ml 11/13/17 18:11 11/13/17 18:21 Duoneb 3.0-0.5 Mg/3 Ml NEB 11/13/17 18:12 3 ml ONETIME ONE Administration Azithromycin 500 mg 11/13/17 18:39 Zithromax PO 11/13/17 18:40 NOW STA Methylprednisolone Sodium Succinate 125 mg 11/13/17 18:39 Solu-Medrol IVPUSH 11/13/17 18:40 ONETIME ONE Departure - Departure Time of Disposition: 18:37 Disposition: Home, Self-Care 01 Clinical Impression: Bronchitis - Discharge Information Referrals: PCP,None [Primary Care Provider] - Forms: ED Department Discharge Additional Instructions: The following information is given to patients seen in the emergency department who are being discharged to home. This information is to outline your options for follow-up care. We provide all patients seen in our emergency department with a follow-up referral. The need for follow-up, as well as the timing and circumstances, are variable depending upon the specifics of your emergency department visit. If you don't have a primary care physician on staff, we will provide you with a referral. We always advise you to contact your personal physician following an emergency department visit to inform them of the circumstance of the visit and for follow-up with them and/or the need for any referrals to a consulting specialist. The emergency department will also refer you to a specialist when appropriate. This referral assures that you have the opportunity for follow-up care with a specialist. All of these measure are taken in an effort to provide you with optimal care, which includes your follow-up. Under all circumstances we always encourage you to contact your private physician who remains a resource for coordinating your care. When calling for follow-up care, please make the office aware that this follow-up is from your recent emergency room visit. If for any reason you are refused follow-up, please contact the Emergency Department at and asked to speak to the emergency department charge nurse. Primary Care [address] [place] [id number] 1. Please take your antibiotic and steroid as directed. 2. Use your inhaler as needed. Please wear a protective mask while at work when handling chemical exposures. 3. I'll up with her primary caregiver in the next 1-2 days. Return to the ED as needed and as discussed. - My Orders Last 24 Hours: My Active Orders 11/13/17 18:11 RT Aerosol Therapy [RC] ASDIRECTED - Assessment/Plan Last 24 Hours: My Active Orders 11/13/17 18:11 RT Aerosol Therapy [RC] ASDIRECTED
[2017-11-13] MEDS ORDERED: methylPREDNISolone Sodium Succinate 125 MG/2 ML SDV IVPUSH ONE (18:39)
[2017-11-13] MEDS ORDERED: Azithromycin 250 MG Tab PO STA (18:39)
[2017-11-13] MEDS ORDERED: methylPREDNISolone Sodium Succinate 125 MG/2 ML SDV IM ONE (18:51)
[2017-11-13 19:23] VITALS: BP 138/72
== END 2017-11-13 19:15 | disposition home or self-care (01) ==
LOC: MW.ED 17:57
DX: J40 Bronchitis, not specified as acute or chronic (principal); Z88.5 Allergy status to narcotic agent; Z91.018 Allergy to other foods; Z79.899 Other long term (current) drug therapy
CPT/HCPCS: 94640; 96372; 99284; A9270; J2930; 99283

== ENCOUNTER 2017-12-05 15:04 | Emergency (ER) | payer BC ==
[2017-12-05] MEDS ORDERED: Benzocaine 20% Topical Spray UD MUCMEM ONE (15:17)
[2017-12-05] MEDS ORDERED: Lidocaine 2% Viscous Solution 15 ML Cup PO ONE (15:17)
[2017-12-05] MEDS ORDERED: Ketorolac 60 MG/2 ML SDV IM ONE (15:17)
--- NOTE | 2017-12-05 15:20 | EDM.PDOC ---
ED HPI GENERAL MEDICAL PROBLEM - General Chief Complaint: General Stated Complaint: LT SIDE JAW HURTS Time Seen by Provider: 12/05/17 15:10 Source of Information: Reports: Patient History Limitations: Reports: No Limitations - History of Present Illness INITIAL COMMENTS - FREE TEXT/NARRATIVE: HISTORY AND PHYSICAL: History of present illness: Patient is a 32-year-old female who presents to the emergency room today with complaints of right posterior/dental pain. She states for the past 6 months she has been dealing with wisdom tooth pain". She has been trying to find a dentist that will accept her insurance, reports that she has not found anybody accepting new patients. Tylenol and ibuprofen [id number] with minimal relief. She denies any fever, chills, chest pain, shortness of breath or cough. Denies any GI or symptoms. Review of systems: As per history of present illness and below otherwise all systems reviewed and negative. Past medical history: As per history of present illness and as reviewed below otherwise noncontributory. Surgical history: As per history of present illness and as reviewed below otherwise noncontributory. Social history: No reported history of drug or alcohol abuse. Family history: As per history of present illness and as reviewed below otherwise noncontributory. Physical exam: General: Well-developed and well-nourished 32-year-old female. Alert and oriented. Nontoxic appearing and in no acute distress. HEENT: Atraumatic, normocephalic, pupils equal and reactive bilaterally, negative for conjunctival pallor or scleral icterus, mucous membranes moist, no erythema noted along the gumline, throat clear, neck supple, nontender, trachea midline. No drooling or trismus noted. No meningeal signs Lungs: Clear to auscultation, breath sounds equal bilaterally, chest nontender. Heart: S1S2, regular rate and rhythm without overt murmur Abdomen: Soft, nondistended, nontender. Negative for masses or hepatosplenomegaly. Negative for costovertebral tenderness. Pelvis: Stable nontender. Genitourinary: Deferred. Rectal: Deferred. Skin: Intact, warm, dry. No lesions or rashes noted. Extremities: Atraumatic, negative for cords or calf pain. Neurovascular unremarkable. Neuro: Awake, alert, oriented. Cranial nerves II through XII unremarkable. Cerebellum unremarkable. Motor and sensory unremarkable throughout. Exam nonfocal. Notes: Does not appear to have any dental abscess at this point. We discussed that definitive care with a dentist is optimal. We'll give her a shot of Toradol along with topical dental balls. Diclofenac #20 and [place] 5/325 #15 - No refills. She voices understanding and is agreeable to plan of care. Denies any further questions at this time. Diagnostics: [] Therapeutics: Viscous lidocaine/hurricane spray Toradol Impression: Dentalgia Plan: 1. Please take the medication as directed. 2. As we discussed please follow-up with a dentist for definitive care. Return to the ED as needed and as discussed. Definitive disposition and diagnosis as appropriate pending reevaluation and review of above. Duration: Chronic Right Upper Dental Pain Score (Numeric/FACES): 6 - Related Data Allergies Allergy/AdvReac Type Severity Reaction Status Date / Time morphine Allergy Rash Verified 12/05/17 15:13 mushroom Allergy throat Verified 12/05/17 15:13 swelling black olives Allergy throat Uncoded 12/05/17 15:13 swelling Home Meds: Home Meds Montelukast [Singulair] 10 mg PO DAILY 11/13/17 [History] Past Medical History - Past Health History Medical/Surgical History: Denies Medical/Surgical History HEENT History: Reports: Impaired Vision Other HEENT History: wears eyeglasses Cardiovascular History: Reports: None Respiratory History: Reports: Asthma, Bronchitis, Recurrent, Other (See Below) Other Respiratory History: pneumonia. 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 Musculoskeletal History: Reports: None Neurological History: Reports: Migraines Psychiatric History: Reports: Anxiety, Depression, PTSD Endocrine/Metabolic History: Reports: None Hematologic History: Reports: None Immunologic History: Reports: None Oncologic (Cancer) History: Reports: None Dermatologic History: Reports: None - Infectious Disease History Infectious Disease History: Reports: Chicken Pox - Past Surgical History Head Surgeries/Procedures: Reports: None Musculoskeletal Surgical History: Reports: Other (See Below) Other Musculoskeletal Surgeries/Procedures:: right hand & left knee surgery Social & Family History - Family History Family Medical History: Noncontributory - Caffeine Use Caffeine Use: Reports: Coffee, Soda Caffeine Use Comment: 1 cup occasionally ED ROS GENERAL - Review of Systems Review Of Systems: ROS reveals no pertinent complaints other than HPI. ED EXAM, GENERAL - Physical Exam Exam: See Below (See dictation) Course - Vital Signs Last Recorded V/S: Last Vital Signs Temp 97.0 F 12/05/17 15:13 Pulse 72 12/05/17 15:13 Resp 18 12/05/17 15:13 BP 141/65 H 12/05/17 15:13 Pulse Ox 99 12/05/17 15:13 - Orders/Labs/Meds Meds: Medications Discontinued Medications Generic Name Dose Route Start Last Admin Trade Name Shubham PRN Reason Stop Dose Admin Benzocaine 2 each 12/05/17 15:17 Hurricaine One 20% MUCMEM 12/05/17 15:18 ONETIME ONE Ketorolac Tromethamine 60 mg 12/05/17 15:17 Toradol IM 12/05/17 15:18 ONETIME ONE Lidocaine HCl 15 ml 12/05/17 15:17 Xylocaine 2% Viscous PO 12/05/17 15:18 ONETIME ONE Departure - Departure Time of Disposition: 15:24 Disposition: Home, Self-Care 01 Clinical Impression: Dentalgia - Discharge Information Referrals: PCP,None [Primary Care Provider] - Forms: ED Department Discharge Additional Instructions: The following information is given to patients seen in the emergency department who are being discharged to home. This information is to outline your options for follow-up care. We provide all patients seen in our emergency department with a follow-up referral. The need for follow-up, as well as the timing and circumstances, are variable depending upon the specifics of your emergency department visit. If you don't have a primary care physician on staff, we will provide you with a referral. We always advise you to contact your personal physician following an emergency department visit to inform them of the circumstance of the visit and for follow-up with them and/or the need for any referrals to a consulting specialist. The emergency department will also refer you to a specialist when appropriate. This referral assures that you have the opportunity for follow-up care with a specialist. All of these measure are taken in an effort to provide you with optimal care, which includes your follow-up. Under all circumstances we always encourage you to contact your private physician who remains a resource for coordinating your care. When calling for follow-up care, please make the office aware that this follow-up is from your recent emergency room visit. If for any reason you are refused follow-up, please contact the [facility] Department at and asked to speak to the emergency department charge nurse. [facility] [place] [id number] 1. Please take the medication as directed. 2. As we discussed please follow-up with a dentist for definitive care. Return to the ED as needed and as discussed.
[2017-12-05 15:53] VITALS: BP 117/71
== END 2017-12-05 15:52 | disposition home or self-care (01) ==
LOC: MW.ED 15:04
DX: K08.89 Other specified disorders of teeth and supporting structures (principal); Z79.899 Other long term (current) drug therapy; Z88.5 Allergy status to narcotic agent; Z91.018 Allergy to other foods
CPT/HCPCS: 99282; A9270; J1885; 99283

== ENCOUNTER 2018-06-21 16:38 | Emergency (ER) | payer BC ==
--- NOTE | 2018-06-21 17:00 | EDM.PDOC ---
ED HPI GENERAL MEDICAL PROBLEM - General Chief Complaint: ENT Problem Stated Complaint: BEEN SICK FOR TWO WEEKS Time Seen by Provider: 06/21/18 16:58 Source of Information: Reports: Patient History Limitations: Reports: No Limitations - History of Present Illness INITIAL COMMENTS - FREE TEXT/NARRATIVE: HISTORY AND PHYSICAL: History of present illness: Patient is a 33-year-old female here with complaint of being sick x 2 weeks. She states she's had a cough, sore throat, nasal congestion, headache, sinus pressure. She denies chest pain, wheezing, shortness of breath, fevers, chills, nausea, vomiting, diarrhea, abdominal pain. She has a history of asthma and has been using her rescue inhaler as needed. Review of systems: As per history of present illness and below otherwise all systems reviewed and negative. Past medical history: As per history of present illness and as reviewed below otherwise noncontributory. Surgical history: As per history of present illness and as reviewed below otherwise noncontributory. Social history: No reported history of drug or alcohol abuse. Family history: As per history of present illness and as reviewed below otherwise noncontributory. Physical exam: General: Patient sitting comfortably in no acute distress and nontoxic appearing HEENT: Maxillary sinus tenderness bilaterally. Atraumatic, normocephalic, pupils reactive, negative for conjunctival pallor or scleral icterus, mucous membranes moist, throat clear, neck supple, nontender, trachea midline. No meningeal signs. Lungs: Clear to auscultation, breath sounds equal bilaterally, chest nontender. Heart: S1S2, regular, negative for clicks, rubs, or overt murmur. Abdomen: Soft, nondistended, nontender. Negative for masses or hepatosplenomegaly. Negative for costovertebral tenderness. Pelvis: Stable nontender. Genitourinary: Deferred. Rectal: Deferred. Extremities: Atraumatic, negative for cords or calf pain. Neurovascular unremarkable. Neuro: Awake, alert, oriented. Cranial nerves II through XII unremarkable. Cerebellum unremarkable. Motor and sensory unremarkable throughout. Exam nonfocal. Notes: Diagnostics: influenza, strep, CXR Therapeutics: None Prescriptions: Azithromycin Impression: Bronchitis, sinusitis Plan: 1. Take antibiotic as instructed. Use inhaler as needed as discussed. 2. Follow-up with primary care provider. 3. Return to ED as needed as discussed Definitive disposition and diagnosis as appropriate pending reevaluation and review of above. Throat Pain Score (Numeric/FACES): 6 - Related Data Allergies Allergy/AdvReac Type Severity Reaction Status Date / Time morphine Allergy Rash Verified 06/21/18 16:54 mushroom Allergy throat Verified 06/21/18 16:54 swelling black olives Allergy throat Uncoded 06/21/18 16:54 swelling Home Meds: Home Meds Montelukast [Singulair] 10 mg PO DAILY 11/13/17 [History] Azithromycin [Zithromax] 250 mg PO ASDIRECTED #1 dosepk 06/21/18 [Rx] Past Medical History - Past Health History Medical/Surgical History: Denies Medical/Surgical History HEENT History: Reports: Impaired Vision Other HEENT History: wears eyeglasses Cardiovascular History: Reports: None Respiratory History: Reports: Asthma, Bronchitis, Recurrent, Other (See Below) Other Respiratory History: pneumonia. 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 Musculoskeletal History: Reports: None Neurological History: Reports: Migraines Psychiatric History: Reports: Anxiety, Depression, PTSD Endocrine/Metabolic History: Reports: None Hematologic History: Reports: None Immunologic History: Reports: None Oncologic (Cancer) History: Reports: None Dermatologic History: Reports: None - Infectious Disease History Infectious Disease History: Reports: Chicken Pox - Past Surgical History Head Surgeries/Procedures: Reports: None Musculoskeletal Surgical History: Reports: Other (See Below) Other Musculoskeletal Surgeries/Procedures:: right hand & left knee surgery Social & Family History - Family History Family Medical History: Noncontributory - Tobacco Use Smoking Status *Q: Never Smoker - Caffeine Use Caffeine Use: Reports: Coffee, Soda Caffeine Use Comment: 1 cup occasionally - Recreational Drug Use Recreational Drug Use: No ED ROS ENT - Review of Systems Review Of Systems: ROS reveals no pertinent complaints other than HPI. ED EXAM, ENT - Physical Exam Exam: See Below (see dictation) Course - Vital Signs Last Recorded V/S: Last Vital Signs Temp 97.1 F 06/21/18 16:52 Pulse 81 06/21/18 16:52 Resp 18 06/21/18 16:52 BP 139/74 06/21/18 16:52 Pulse Ox 99 06/21/18 16:52 - Orders/Labs/Meds Orders: Active Orders 24 hr Category Date Time Status Chest 1V Frontal [CR] Stat Exams 06/21/18 17:00 Taken CULTURE STREP A CONFIRMATION [RM] Stat Lab 06/21/18 17:02 Results STREP SCRN A RAPID W CULT CONF [RM] Stat Lab 06/21/18 17:02 Results Departure - Departure Time of Disposition: 17:52 Disposition: Home, Self-Care 01 Condition: Good Clinical Impression: Bronchitis, Acute sinusitis - Discharge Information Prescriptions: Azithromycin [Zithromax] 250 mg PO ASDIRECTED #1 dosepk Forms: ED Department Discharge Additional Instructions: The following information is given to patients seen in the emergency department who are being discharged to home. This information is to outline your options for follow-up care. We provide all patients seen in our emergency department with a follow-up referral. The need for follow-up, as well as the timing and circumstances, are variable depending upon the specifics of your emergency department visit. If you don't have a primary care physician on staff, we will provide you with a referral. We always advise you to contact your personal physician following an emergency department visit to inform them of the circumstance of the visit and for follow-up with them and/or the need for any referrals to a consulting specialist. The emergency department will also refer you to a specialist when appropriate. This referral assures that you have the opportunity for follow-up care with a specialist. All of these measure are taken in an effort to provide you with optimal care, which includes your follow-up. Under all circumstances we always encourage you to contact your private physician who remains a resource for coordinating your care. When calling for follow-up care, please make the office aware that this follow-up is from your recent emergency room visit. If for any reason you are refused follow-up, please contact the [facility] Emergency Department at and asked to speak to the emergency department charge nurse. [facility] [address] [place] [id number] 1. Take antibiotic as instructed. Use inhaler as needed as discussed. 2. Follow-up with primary care provider. 3. Return to ED as needed as discussed - My Orders Last 24 Hours: My Active Orders 06/21/18 17:00 Chest 1V Frontal [CR] Stat 06/21/18 17:02 CULTURE STREP A CONFIRMATION [RM] Stat STREP SCRN A RAPID W CULT CONF [] Stat - Assessment/Plan Last 24 Hours: My Active Orders 06/21/18 17:00 Chest 1V Frontal [CR] Stat 06/21/18 17:02 CULTURE STREP A CONFIRMATION [RM] Stat STREP SCRN A RAPID W CULT CONF [] Stat
[2018-06-21 18:09] VITALS: BP 128/59
--- NOTE | 2018-06-22 13:17 | CR ---
EXAM DATE: 06/21/18 PATIENT'S AGE: 33 Patient: MARIANA DOMINGO Facility: [place], [place] Site Site : [id number] Study: XRay Chest [id number] 5:29:52 PM Ordering Physician: Danyelle Patterson Final Report: Indication: Cough for 1 and half weeks Technique: Chest 1 view Comparison: None Findings/Impression: Cardiovascular and mediastinum: Heart size and vasculature are normal in caliber and appearance. Mediastinum is within normal limits. Lungs and pleural space: Lungs are clear. No sign of infiltrate or mass. No sign of pleural effusion. No pneumothorax. Bones and soft tissues: No significant findings. Dictated by Jeanne Hidalgo MD @ Jun 21 2018 5:48PM (Electronic Signature) Report Signed by Proxy. [facility]ITAL[facility]
== END 2018-06-21 18:05 | disposition home or self-care (01) ==
LOC: MW.ED 16:38
DX: J40 Bronchitis, not specified as acute or chronic (principal); J01.90 Acute sinusitis, unspecified; Z88.5 Allergy status to narcotic agent; Z91.018 Allergy to other foods; Z79.899 Other long term (current) drug therapy
CPT/HCPCS: 71045; 71045-26; 87081; 87804; 87880-QW; 99283

== ENCOUNTER 2018-07-03 18:36 | Emergency (ER) | payer BC ==
[2018-07-03] MEDS ORDERED: Albuterol/Ipratropium 3.0-0.5 MG/3 ML Neb Soln NEB ONE (18:39)
[2018-07-03] MEDS ORDERED: methylPREDNISolone Sodium Succinate 125 MG/2 ML SDV IM ONE (18:39)
--- NOTE | 2018-07-03 18:46 | EDM.PDOC ---
ED HPI GENERAL MEDICAL PROBLEM - General Stated Complaint: PT HAS CHEST PAINS Time Seen by Provider: 07/03/18 18:38 - History of Present Illness INITIAL COMMENTS - FREE TEXT/NARRATIVE: HISTORY AND PHYSICAL: History of present illness: Patient 33-year-old white female presents with concerns shortness of breath she states has been worse over the last several days she states she's been struggling with bronchitis she has known asthmatic and has used her albuterol nebulizer at home with no significant improvement. She denies fever chills nausea vomiting or other complaints Review of systems: As per history of present illness and below otherwise all systems reviewed and negative. Past medical history: As per history of present illness and as reviewed below otherwise noncontributory. Surgical history: As per history of present illness and as reviewed below otherwise noncontributory. Social history: No reported history of drug or alcohol abuse. Family history: As per history of present illness and as reviewed below otherwise noncontributory. Physical exam: HEENT: Atraumatic, normocephalic, pupils reactive, negative for conjunctival pallor or scleral icterus, mucous membranes moist, throat clear, neck supple, nontender, trachea midline. Lungs: Diminished bilaterally, breath sounds equal bilaterally, chest nontender. Heart: S1S2, regular, negative for clicks, rubs, or JVD. Abdomen: Soft, nondistended, nontender. Negative for masses or hepatosplenomegaly. Negative for costovertebral tenderness. Pelvis: Stable nontender. Genitourinary: Deferred. Rectal: Deferred. Extremities: Atraumatic, negative for cords or calf pain. Neurovascular unremarkable. Neuro: Awake, alert, oriented. Cranial nerves II through XII unremarkable. Cerebellum unremarkable. Motor and sensory unremarkable throughout. Exam nonfocal. Diagnostics: Influenza screen chest x-ray EKG Therapeutics: Solu-Medrol 125 mg IM puberal ipratropium Impression: #1 acute asthmatic exacerbation Definitive disposition and diagnosis as appropriate pending reevaluation and review of above. - Related Data Allergies Allergy/AdvReac Type Severity Reaction Status Date / Time morphine Allergy Rash Verified 07/03/18 18:41 mushroom Allergy throat Verified 06/21/18 16:54 swelling black olives Allergy throat Uncoded 06/21/18 16:54 swelling Home Meds: Home Meds Montelukast [Singulair] 10 mg PO DAILY 11/13/17 [History] Albuterol [Ventolin HFA] 1 puff INH Q4H #1 inhaler 06/21/18 [Rx] Azithromycin [Zithromax] 250 mg PO ASDIRECTED #1 dosepk 06/21/18 [Rx] Past Medical History - Past Health History Medical/Surgical History: Denies Medical/Surgical History HEENT History: Reports: Impaired Vision Other HEENT History: wears eyeglasses Cardiovascular History: Reports: None Respiratory History: Reports: Asthma, Bronchitis, Recurrent, Other (See Below) Other Respiratory History: pneumonia. 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 Musculoskeletal History: Reports: None Neurological History: Reports: Migraines Psychiatric History: Reports: Anxiety, Depression, PTSD Endocrine/Metabolic History: Reports: None Hematologic History: Reports: None Immunologic History: Reports: None Oncologic (Cancer) History: Reports: None Dermatologic History: Reports: None - Infectious Disease History Infectious Disease History: Reports: Chicken Pox - Past Surgical History Head Surgeries/Procedures: Reports: None Musculoskeletal Surgical History: Reports: Other (See Below) Other Musculoskeletal Surgeries/Procedures:: right hand & left knee surgery Social & Family History - Family History Family Medical History: Noncontributory - Caffeine Use Caffeine Use: Reports: Coffee, Soda Caffeine Use Comment: 1 cup occasionally ED ROS GENERAL - Review of Systems Review Of Systems: ROS reveals no pertinent complaints other than HPI. ED EXAM, GENERAL - Physical Exam Exam: See Below (See dictation) Course - Vital Signs Last Recorded V/S: Last Vital Signs Temp 36.8 C 07/03/18 18:42 Pulse 100 07/03/18 18:42 Resp 20 07/03/18 18:42 BP 133/103 H 07/03/18 18:42 Pulse Ox 100 07/03/18 18:42 - Orders/Labs/Meds Orders: Active Orders 24 hr Category Date Time Status EKG Documentation Completion [RC] STAT Care 07/03/18 18:39 Active RT Aerosol Therapy [RC] ASDIRECTED Care 07/03/18 18:40 Active Chest 1V Frontal [CR] Stat Exams 07/03/18 18:39 Taken Labs: Laboratory Tests 07/03/18 Range/Units 19:05 Urine HCG, Qual NEGATIVE (NEGATIVE) Meds: Medications Discontinued Medications Generic Name Dose Route Start Last Admin Trade Name Shubham PRN Reason Stop Dose Admin Albuterol/Ipratropium 3 ml 07/03/18 18:39 07/03/18 18:49 Duoneb 3.0-0.5 Mg/3 Ml NEB 07/03/18 18:40 3 ml ONETIME ONE Administration Methylprednisolone Sodium Succinate 125 mg 07/03/18 18:39 07/03/18 18:50 Solu-Medrol IM 07/03/18 18:40 125 mg ONETIME ONE Administration Departure - Departure Time of Disposition: 19:43 Disposition: Home, Self-Care 01 Condition: Good Clinical Impression: Asthmatic bronchitis - Discharge Information Additional Instructions: The following information is given to patients seen in the emergency department who are being discharged to home. This information is to outline your options for follow-up care. We provide all patients seen in our emergency department with a follow-up referral. The need for follow-up, as well as the timing and circumstances, are variable depending upon the specifics of your emergency department visit. If you don't have a primary care physician on staff, we will provide you with a referral. We always advise you to contact your personal physician following an emergency department visit to inform them of the circumstance of the visit and for follow-up with them and/or the need for any referrals to a consulting specialist. The emergency department will also refer you to a specialist when appropriate. This referral assures that you have the opportunity for followup care with a specialist. All of these measure are taken in an effort to provide you with optimal care, which includes your followup. Under all circumstances we always encourage you to contact your private physician who remains a resource for coordinating your care. When calling for followup care, please make the office aware that this follow-up is from your recent emergency room visit. If for any reason you are refused follow-up, please contact the [facility] emergency department at and asked to speak to the emergency department charge nurse. Z-Fidel Medrol as directed continue albuterol follow-up primary medical doctor as needed as discussed and return as needed as discussed - My Orders Last 24 Hours: My Active Orders 07/03/18 18:39 EKG Documentation Completion [RC] STAT Chest 1V Frontal [CR] Stat 07/03/18 18:40 RT Aerosol Therapy [RC] ASDIRECTED - Assessment/Plan Last 24 Hours: My Active Orders 07/03/18 18:39 EKG Documentation Completion [RC] STAT Chest 1V Frontal [CR] Stat 07/03/18 18:40 RT Aerosol Therapy [RC] ASDIRECTED
[2018-07-03 19:56] VITALS: BP 133/80
--- NOTE | 2018-07-03 20:00 | CR ---
HISTORY: Chest pain. Shortness of breath. Dizziness. Cough. COMPARISON: 06/21/2018 FINDINGS: A portable erect AP view of the chest was obtained at 1923 hours. The lungs remain clear. No focal or diffuse infiltrates are present. The heart remains normal in size. The mediastinum is normal in appearance. The osseous structures are normal in appearance for the patient`s age. IMPRESSION: NORMAL PORTABLE CHEST SINGLE VIEW. Dictated by Ramiro Fontanez MD @ Jul 03 2018 7:58PM Signed by Dr. Ramiro Fontanez @ Jul 03 2018 7:59PM
== END 2018-07-03 19:56 | disposition home or self-care (01) ==
LOC: MW.ED 18:36
DX: J45.901 Unspecified asthma with (acute) exacerbation (principal); Z91.018 Allergy to other foods; Z88.5 Allergy status to narcotic agent
CPT/HCPCS: 71045; 81025; 87804; 93005; 96372; 99285; J2930; J7620-GY

== ENCOUNTER 2018-07-19 21:02 | Emergency (ER) | payer BC ==
[2018-07-19] MEDS ORDERED: predniSONE 20 MG Tab PO ONE (21:44)
--- NOTE | 2018-07-19 21:44 | EDM.PDOC ---
ED HPI GENERAL MEDICAL PROBLEM - General Chief Complaint: Respiratory Problem Stated Complaint: PT HAS COUGH Time Seen by Provider: 07/19/18 21:34 - History of Present Illness INITIAL COMMENTS - FREE TEXT/NARRATIVE: HISTORY AND PHYSICAL: History of present illness: The patient is a 33-year-old female with a known history of asthma was been here in the ED several times in June for asthmatic bronchitis, June 21 and July 03, and had chest x-rays and influenza swabs both times. She was given treatment for her asthma and told to follow-up and she has not been connecting in the clinic for that follow-up. The patient says over the last 2 days her cough has flared up and she thought it was her asthmatic bronchitis and she's been using a nebulizer at home. She says she is coughing so hard that is making her vomit and she is feeling nauseated because of it. She is not having diarrhea and no stomach pain. She has no chest pain and no shortness of breath except when she is having a coughing event. She says that her throat hurts but only when she is coughing. She is frustrated about the cough and she says she has been trying to get into the clinic but they never have appointments available. SHe says she is trying to get so she is not sure of that. Review of systems: As per history of present illness and below otherwise all systems reviewed and negative. Past medical history: As per history of present illness and as reviewed below otherwise noncontributory. Surgical history: As per history of present illness and as reviewed below otherwise noncontributory. Social history: No reported history of drug or alcohol abuse. Family history: As per history of present illness and as reviewed below otherwise noncontributory. Physical exam: General: Well-developed well-nourished overweight female who is speaking clearly in the ED without breathlessness but has a harsh cough I appreciated. Vital signs noted by me HEENT: Atraumatic, normocephalic, pupils reactive, negative for conjunctival pallor or scleral icterus, mucous membranes moist, throat clear, neck supple, nontender, trachea midline. There is no cervical adenopathy or nuchal rigidity Lungs: Clear to auscultation, breath sounds equal bilaterally, chest nontender. I do not appreciate any wheezing stridor or work of breathing Heart: S1S2, regular, rate and rhythm no overt murmurs. Abdomen: Soft, nondistended, nontender. Negative for masses or hepatosplenomegaly. NABS Pelvis: Stable nontender. Genitourinary: Deferred. Rectal: Deferred. Extremities: Atraumatic, negative for cords or calf pain. Neurovascular unremarkable. No pedal edema Neuro: Awake, alert, oriented. Cranial nerves II through XII unremarkable. Cerebellum unremarkable. Motor and sensory unremarkable throughout. Exam nonfocal. Diagnostics: I offered the patient evaluation with IV and labs but she has declined. Please see below note. We only need to know if she is for medications so I will do a UCG Therapeutics: Prednisone Discussed with the patient that she does need to connect with a provider in the clinic as her asthma could be much better controlled and these episodes and visits to the ED could be curtailed on maintenance therapy. I offered her IV fluids labs and evaluation for the nausea and vomiting but she thinks that if we can control the cough that would be all she would want to do. She has a nebulizer at home so I will give her prednisone Tessalon Perles Phenergan with codeine and Zofran pending her UCG result. She is comfortable with this approach Impression: Persistent cough/exacerbation of asthmatic bronchitis with posttussive vomiting Definitive disposition and diagnosis as appropriate pending reevaluation and review of above. Throat Pain Score (Numeric/FACES): 7 - Related Data Allergies Allergy/AdvReac Type Severity Reaction Status Date / Time morphine Allergy Rash Verified 07/19/18 21:34 mushroom Allergy throat Verified 07/19/18 21:34 swelling black olives Allergy throat Uncoded 07/19/18 21:34 swelling Home Meds: Home Meds . [No Known Home Meds] 07/19/18 [History] Past Medical History - Past Health History Medical/Surgical History: Denies Medical/Surgical History HEENT History: Reports: Impaired Vision Other HEENT History: wears eyeglasses Cardiovascular History: Reports: None Respiratory History: Reports: Asthma, Bronchitis, Recurrent, Other (See Below) Other Respiratory History: pneumonia. 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: None Musculoskeletal History: Reports: None Neurological History: Reports: Migraines Psychiatric History: Reports: Anxiety, Depression, PTSD Endocrine/Metabolic History: Reports: None Hematologic History: Reports: None Immunologic History: Reports: None Oncologic (Cancer) History: Reports: None Dermatologic History: Reports: None - Infectious Disease History Infectious Disease History: Reports: Chicken Pox - Past Surgical History Head Surgeries/Procedures: Reports: None Musculoskeletal Surgical History: Reports: Other (See Below) Other Musculoskeletal Surgeries/Procedures:: right hand & left knee surgery Social & Family History - Family History Family Medical History: Noncontributory - Tobacco Use Smoking Status *Q: Never Smoker Second Hand Smoke Exposure: No - Caffeine Use Caffeine Use: Reports: Coffee Caffeine Use Comment: 1 cup occasionally - Recreational Drug Use Recreational Drug Use: No ED ROS GENERAL - Review of Systems Review Of Systems: ROS reveals no pertinent complaints other than HPI. ED EXAM, GENERAL - Physical Exam Exam: See Below (See dictation) Course - Vital Signs Last Recorded V/S: Last Vital Signs Temp 36.4 C 07/19/18 21:34 Pulse 109 H 07/19/18 21:34 Resp 20 07/19/18 21:34 BP 136/94 H 07/19/18 21:34 Pulse Ox 97 07/19/18 21:34 - Orders/Labs/Meds Labs: Laboratory Tests 07/19/18 Range/Units 21:45 Urine HCG, Qual NEGATIVE (NEGATIVE) Meds: Medications Discontinued Medications Generic Name Dose Route Start Last Admin Trade Name Shubham PRN Reason Stop Dose Admin Prednisone 40 mg 07/19/18 21:44 Prednisone PO 07/19/18 21:45 ONETIME ONE Departure - Departure Time of Disposition: 22:04 Disposition: Home, Self-Care 01 Condition: Good Clinical Impression: Persistent cough, Post-tussive vomiting Asthmatic bronchitis Qualifiers: Asthma severity: moderate Asthma persistence: persistent Asthma complication type: uncomplicated Qualified Code(s): J45.40 - Moderate persistent asthma, uncomplicated - Discharge Information Referrals: PCP,None [Primary Care Provider] - Forms: ED Department Discharge Additional Instructions: The following information is given to patients seen in the emergency department who are being discharged to home. This information is to outline your options for follow-up care. We provide all patients seen in our emergency department with a follow-up referral. The need for follow-up, as well as the timing and circumstances, are variable depending upon the specifics of your emergency department visit. If you don't have a primary care physician on staff, we will provide you with a referral. We always advise you to contact your personal physician following an emergency department visit to inform them of the circumstance of the visit and for follow-up with them and/or the need for any referrals to a consulting specialist. The emergency department will also refer you to a specialist when appropriate. This referral assures that you have the opportunity for followup care with a specialist. All of these measure are taken in an effort to provide you with optimal care, which includes your followup. Under all circumstances we always encourage you to contact your private physician who remains a resource for coordinating your care. When calling for followup care, please make the office aware that this follow-up is from your recent emergency room visit. If for any reason you are refused follow-up, please contact the [facility] emergency department at and ask to speak to the emergency department charge nurse. [facility] Primary care- [place] [address] Please use medications as prescribed and directed. You have been given prednisone Phenergan with codeine and Zofran from [facility] and a prescription for Tessalon Perles. Push hydration and use your nebulizer machine every 6 hours as you need. Please call and schedule a follow-up appointment as we discussed as you need further asthma care for preventative measures and for follow-up. Return to ER as needed and as discussed
[2018-07-19 22:38] VITALS: BP 132/97
== END 2018-07-19 22:30 | disposition home or self-care (01) ==
LOC: MW.ED 21:02
DX: J45.40 Moderate persistent asthma, uncomplicated (principal); R11.10 Vomiting, unspecified; Z88.5 Allergy status to narcotic agent; Z91.018 Allergy to other foods
CPT/HCPCS: 81025; 99284; A9270; 99283

== ENCOUNTER 2020-11-28 11:40 | Emergency (ER) | payer SELFPAY ==
--- NOTE | 2020-11-28 12:13 | EDM.PDOC ---
ED HPI GENERAL MEDICAL PROBLEM - General Chief Complaint: Respiratory Problem Stated Complaint: ASTHMA Time Seen by Provider: 11/28/20 11:48 Source of Information: Reports: Patient History Limitations: Reports: No Limitations - History of Present Illness INITIAL COMMENTS - FREE TEXT/NARRATIVE: HISTORY AND PHYSICAL: History of present illness: Patient is a 35-year-old female who presents to the emergency room with complaints of chest tightness, sinus pressure/pain and minimal shortness of breath over the past 3 days. Patient states she has asthma and seasonal allergies. She has been taking Zyrtec thinking this could help, has not had any relief. She is also used her inhaler and nebulizer machine without much improvement. She states she did have COVID-19 last year, no concern for COVID- 19 and declines wanting testing. Has not been around any sick contacts. Patient denies any fever, chills, headache, change in vision, syncope or near syncope. Denies any chest pain, back pain, hemoptysis or cough. Denies any abdominal pain, nausea, vomiting, diarrhea, constipation or dysuria. Has not noted any blood in urine or stool. Patient has been eating and drinking appro priately. Review of systems: As per history of present illness and below otherwise all systems reviewed and negative. Past medical history: As per history of present illness and as reviewed below otherwise noncontributory. Surgical history: As per history of present illness and as reviewed below otherwise noncontributory. Social history: See social history for further information Family history: As per history of present illness and as reviewed below otherwise noncontributory. Physical exam: General: Well developed and well nourished 35-year-old female. Alert and orientated x 3. Nontoxic in appearance and in no acute distress. Vital signs are stable and have been reviewed by me. Nursing notes were reviewed. HEENT: Atraumatic, normocephalic, pupils equal and reactive bilaterally, negative for conjunctival pallor or scleral icterus, mucous membranes moist, moderate tenderness with palpation of bilateral frontal and maxillary sinuses, TMs normal bilaterally, throat clear, neck supple, nontender, trachea midline. No drooling or trismus noted. No meningeal signs. No hot potato voice noted. Lungs: Clear to auscultation bilaterally. No wheezes, rales, or rhonchi. Chest nontender. Normal work of breathing, no accessory muscles used. Heart: S1S2, regular rate and rhythm Abdomen: Soft, nondistended, nontender. Normoactive bowel sounds. Negative for masses or costovertebral tenderness. Skin: Intact, warm, dry. No lesions or rashes noted. Hematologic: No petechiae or purpra. Mucosa appropriate color and normal nail bed color and refill. Extremities: Atraumatic, moves all extremities per self without difficulty or deficits, negative for cords or calf pain. Neurovascular unremarkable. Neuro: Awake, alert, oriented. Cranial nerves II through XII unremarkable. Cerebellum unremarkable. Motor and sensory unremarkable throughout. Exam nonfocal. Psychiatric: Mood and affect are appropriate. Normal thought process. Answering questions appropriately. Notes: *This patient was seen and evaluated during the 2019 SARS-CoV-2 novel coronavirus pandemic period. Community viral transmission is ongoing at time of this encounter and the emergency department is operating under pandemic response procedures. Patient is a 35-year-old female who presents to the emergency room with complaints of an asthma and sinus "flare". She states she has been taking Zyrtec and her prescribed inhalers although has not felt any improvement. Her physical exam is unremarkable with the exception she does have tenderness bilaterally to the frontal and maxillary sinus region. Her lung sounds are clear. Due to her history of asthma and complaints I will get an EKG and chest x-ray, and patient is agreeable. EKG shows a normal sinus rhythm with rate of 59, no ST concerns. CXR is unrema rkable and VSS. I will treat with Augmentin and prednisone. I have talked with the patient about today's findings, in addition to providing specific details for plan of care. Reassessment at the time of disposition demonstrates that the patient is in no acute distress. The patient is stable for discharge, counseling was provided and we discussed in great detail signs and symptoms that would prompt them to return to the Emergency Department. Medication, follow up and supportive care measures were reviewed and discussed. Voices understanding and is agreeable to plan of care. Denies any further questions or concerns at this time. Diagnostics: EKG, chest x-ray Therapeutics: None Prescription: Augmentin, prednisone Impression: Sinusitis Asthma exacerbation Plan: 1. You were evaluated today on an emergent basis. Please take the medications as directed and continue taking your home medications as directed and as needed. 2. You can alternate Tylenol and ibuprofen as needed for pain and fever management. 3. We encourage you to follow up with your primary care provider and/or recommended specialist in the next few days for re-evaluation and further care/management. 4. If your symptoms should worsen, new symptoms develop or any of the signs and symptoms we discussed should arise please return to the emergency room or call 911 (if needed). Definitive disposition and diagnosis as appropriate pending reevaluation and review of above. - Related Data Allergies Allergy/AdvReac Type Severity Reaction Status Date / Time morphine Allergy Rash Verified 11/28/20 12:07 mushroom Allergy throat Verified 11/28/20 12:07 swelling black olives Allergy throat Uncoded 11/28/20 12:07 swelling Home Meds: Home Meds Cetirizine [ZyrTEC] 1 tab PO DAILY 11/28/20 [History] predniSONE [Prednisone] 40 mg PO DAILY 5 Days #10 tablet 11/28/20 [Rx] Past Medical History - Past Health History Medical/Surgical History: Denies Medical/Surgical History HEENT History: Reports: Impaired Vision Other HEENT History: wears eyeglasses Cardiovascular History: Reports: None Respiratory History: Reports: Asthma, Bronchitis, Recurrent, Other (See Below) Other Respiratory History: pneumonia. bronchitis Gastrointestinal History: Reports: None Genitourinary History: Reports: None SURGICAL ENDOSCOPIST History: Reports: None Musculoskeletal History: Reports: None Neurological History: Reports: Migraines Psychiatric History: Reports: Anxiety, Depression, PTSD Endocrine/Metabolic History: Reports: None Hematologic History: Reports: None Immunologic History: Reports: None Oncologic (Cancer) History: Reports: None Dermatologic History: Reports: None - Infectious Disease History Infectious Disease History: Reports: Chicken Pox - Past Surgical History Head Surgeries/Procedures: Reports: None Musculoskeletal Surgical History: Reports: Other (See Below) Other Musculoskeletal Surgeries/Procedures:: right hand & left knee surgery Social & Family History - Family History Family Medical History: No Pertinent Family History - Caffeine Use Caffeine Use: Reports: Coffee Caffeine Use Comment: 1 cup occasionally ED ROS GENERAL - Review of Systems Review Of Systems: Comprehensive ROS is negative, except as noted in HPI. ED EXAM, GENERAL - Physical Exam Exam: See Below (See dictation) Course - Vital Signs Last Recorded V/S: Last Vital Signs Temp 97.6 F 11/28/20 12:09 Pulse 72 11/28/20 12:09 Resp 18 11/28/20 12:09 BP 118/72 11/28/20 12:09 Pulse Ox 99 11/28/20 12:09 - Orders/Labs/Meds Orders: Active Orders 24 hr Category Date Time Status EKG Documentation Completion [RC] STAT Care 11/28/20 12:07 Active Chest 1V Frontal [CR] Stat Exams 11/28/20 12:07 Taken Departure - Departure Time of Disposition: 12:55 Disposition: Home, Self-Care 01 Clinical Impression: Exacerbation of asthma Qualifiers: Asthma severity: mild Asthma persistence: unspecified Qualified Code(s): J45.901 - Unspecified asthma with (acute) exacerbation Sinusitis Qualifiers: Sinusitis location: maxillary Chronicity: acute Recurrence: recurrent Qualified Code(s): J01.01 - Acute recurrent maxillary sinusitis - Discharge Information Prescriptions: predniSONE [Prednisone] 40 mg PO DAILY 5 Days #10 tablet Instructions: Sinusitis, Adult, [id number] Referrals: PCP,None [Primary Care Provider] - Forms: ED Department Discharge Additional Instructions: The following information is given to patients seen in the emergency department who are being discharged to home. This information is to outline your options for follow-up care. We provide all patients seen in our emergency department with a follow-up referral. The need for follow-up, as well as the timing and circumstances, are variable depending upon the specifics of your emergency department visit. If you don't have a primary care physician on staff, we will provide you with a referral. We always advise you to contact your personal physician following an emergency department visit to inform them of the circumstance of the visit and for follow-up with them and/or the need for any referrals to a consulting spec ialist. The emergency department will also refer you to a specialist when appropriate. This referral assures that you have the opportunity for follow-up care with a specialist. All of these measure are taken in an effort to provide you with optimal care, which includes your follow-up. Under all circumstances we always encourage you to contact your private physician who remains a resource for coordinating your care. When calling for follow-up care, please make the office aware that this follow-up is from your recent emergency room visit. If for any reason you are refused follow-up, please contact the [facility] Emergency Department at and asked to speak to the emergency department charge nurse. [facility] Primary Care [address] [place] [address] [facility] [address] [place] [address] Thank you for choosing the [facility] emergency department in [place] for your medical needs today. It was a pleasure caring for you. Today you were seen in the emergency department for respiratory and sinus symptoms. 1. You were evaluated today on an emergent basis. Please take the medications as directed and continue taking your home medications as directed and as needed. 2. You can alternate Tylenol and ibuprofen as needed for pain and fever management. 3. We encourage you to follow up with your primary care provider and/or recommended specialist in the next few days for re-evaluation and further care/management. 4. If your symptoms should worsen, new symptoms develop or any of the signs and symptoms we discussed should arise please return to the emergency room or call 911 (if needed). Sepsis Event Note (ED) - Focused Exam Vital Signs: Vital Signs Temp Pulse Resp BP Pulse Ox 11/28/20 12:09 97.6 F 72 18 118/72 99 - My Orders Last 24 Hours: My Active Orders 11/28/20 12:07 EKG Documentation Completion [RC] STAT Chest 1V Frontal [CR] Stat - Assessment/Plan Last 24 Hours: My Active Orders 11/28/20 12:07 EKG Documentation Completion [RC] STAT Chest 1V Frontal [CR] Stat
--- NOTE | 2020-11-28 12:35 | PCM.EKG ---
#1 Interpretation EKG Date: 11/28/20 Time: 12:08 Rhythm: NSR Rate (Beats/Min): 59 [place]: Normal P-Wave: Present QRS: Normal ST-T: Normal (T wave inversion III) QT: Normal Comparison: No Change (07/03/18) EKG Interpretation Comments: Sinus Rhythm
--- NOTE | 2020-11-28 13:08 | CR ---
Indication: Pain, shortness of breath Technique: Chest 1 view Comparison: July 03, 2018 Findings/Impression: Cardiovascular and mediastinum: Heart size and vasculature are normal in caliber and appearance. Mediastinum is within normal limits. Lungs and pleural space: Lungs are clear. No sign of infiltrate or mass. No sign of pleural effusion. No pneumothorax. Bones and soft tissues: No significant findings. Dictated by Jeanne Hidalgo MD @ 11/28/2020 1:06:[address] Jeanne Hidalgo @ Nov 28 2020 1:06PM
[2020-11-28 13:27] VITALS: BP 126/81; PULSE 70
== END 2020-11-28 13:27 | disposition home or self-care (01) ==
LOC: MW.ED 11:40
DX: J45.901 Unspecified asthma with (acute) exacerbation (principal); J32.9 Chronic sinusitis, unspecified; Z88.5 Allergy status to narcotic agent; Z91.018 Allergy to other foods; Z79.899 Other long term (current) drug therapy
CPT/HCPCS: 71045; 71045-26; 93005; 93010; 99283; 99285-25

== ENCOUNTER 2020-12-14 00:35 | Emergency (ER) | payer SELFPAY ==
[2020-12-14] MEDS ORDERED: HYDROmorphone 1 MG/ML Syringe IVPUSH ONE (01:29)
[2020-12-14] MEDS ORDERED: Lactated Ringers 1,000 ML IV ONE (01:29)
[2020-12-14 01:50] LABS: BLOOD UREA NITROGEN,BUN 12 mg/dL (7.0-18.0); CARBON DIOXIDE,CO2 26.9 mmol/L (21.0-32.0); CHLORIDE,CL 104 mmol/L (98-107); GLUCOSE RANDOM 93 mg/dL (74-106); LIPASE 143 U/L (73-393); POTASSIUM,K 3.6 mmol/L (3.5-5.1); SODIUM,NA 142 mmol/L (136-145)
[2020-12-14] MEDS ORDERED: Iopamidol 755 Mg/ML 100 ML Bottle IVPUSH ONE (02:01)
--- NOTE | 2020-12-14 03:09 | CT ---
Indication: Right lower quadrant pain Technique: Contrast enhanced axial CT imaging through the abdomen and pelvis. 100 mL Isovue 370 contrast agent was administered intravenously. Sagittal and coronal reconstructions are provided. Comparison: None Findings: There is focal inflammatory fat stranding and trace free fluid along the lateral margin of the mid ascending colon. No underlying diverticular disease is appreciated. There is no significant colonic wall thickening. The appendix is noninflamed. The stomach and small bowel are unremarkable. No abnormalities are demonstrated relating to the liver, gallbladder, spleen, pancreas, adrenal glands, and kidneys. The portal vein is patent. The abdominal aorta is normal in caliber. There is no abdominal or pelvic lymphadenopathy. The urinary bladder, uterus, and right ovary are unremarkable. A 1.4 cm irregular cystic focus is noted in the left ovary, likely a physiologic follicle. The osseous structures are unremarkable. The included lung bases are clear. Impression: 1. Focal inflammatory fat stranding and trace free fluid along the lateral margin of the mid ascending colon without appreciable underlying diverticular disease or colonic wall thickening. Findings are favored to represent epiploic appendagitis, although mild/early changes of colonic diverticulitis are non entirely excluded. Clinical correlation and monitoring are recommended. 2. Normal appendix. Please note that all CT scans at this facility use dose modulation, iterative reconstruction, and/or weight-based dosing when appropriate to reduce radiation dose to as low as reasonably achievable. Dictated by Rita Alvarado MD @ 12/14/2020 3:07:[address] Rita Alvarado @ Dec 14 2020 3:07AM
[2020-12-14] MEDS ORDERED: Ketorolac 15 MG/ML SDV IM ONE (03:31)
--- NOTE | 2020-12-14 03:39 | EDM.PDOC ---
ED HPI GENERAL MEDICAL PROBLEM - General Chief Complaint: Abdominal Pain Stated Complaint: SHARP PAIN RIGHT SIDE Time Seen by Provider: 12/14/20 01:13 - History of Present Illness INITIAL COMMENTS - FREE TEXT/NARRATIVE: CHIEF COMPLAINT(S): Abdominal pain HISTORY OF PRESENT ILLNESS: This is a 35-year-old woman with a past medical history of asthma who presents to the emergency department with abdominal pain. The patient states that she is experiencing right-sided abdominal pain located in the flank to right lower quadrant for approximately 1 day. She rates the pain as 5 out of 10 without any radiation. She states that the pain is exacerbated by deep breathing. She states that she is trying Tylenol, ibuprofen and ice but it does not help. She denies any nausea, vomiting, diarrhea. She denies any fever or chills. She states she does not have a history of kidney stones. She states that she still has her appendix and her gallbladder. REVIEW OF SYSTEMS: Constitutional: Denies fever, chills. Eyes: Denies eye pain Ears, Nose, Mouth, & Throat: Denies earache Cardiovascular: Denies chest pain Respiratory: Denies shortness of breath Gastrointestinal: Positive for abdominal pain. Denies nausea, vomiting, diarrhea, hematochezia, hematemesis, bilious emesis Genitourinary: Denies hematuria, vaginal bleeding, vaginal discharge skin:Denies a rash MSK: Denies joint pain Neurological: Denies blurred vision Psychiatric: Denies depression PAST MEDICAL HISTORY: As per history of present illness and as reviewed below otherwise noncontributory. SURGICAL HISTORY: As per history of present illness and as reviewed below otherwise noncontributory. SOCIAL HISTORY: As per history of present illness and as reviewed below otherwise noncontributory. FAMILY HISTORY: As per history of present illness and as reviewed below otherwise noncontributory. EXAMINATION OF ORGAN SYSTEMS/BODY AREAS: Constitutional: Blood pressure was 151/81, heart rate 93, respiratory rate 20 with an oxygen saturation of 96% on room air. Temperature 36.6 General: Overall well-appearing woman who is in no acute distress Psychiatric: Appropriate mood and affect. Eyes: No scleral icterus or conjunctival erythema ENMT: Moist mucous membranes. No pharyngeal erythema Cardiovascular: Regular, rate, and rhythm. No gallops, murmurs, or rubs. Bilateral upper extremity pulses symmetric and intact. No peripheral edema. No JVD. Respiratory: Lungs clear to auscultation bilaterally. No wheezes, rales, or rhonchi. Gastrointestinal: Soft, nondistended, tenderness to palpation in the right lower quadrant. No rebound or guarding. Negative Martins's. There is also tenderness in the right upper quadrant area. Normoactive bowel sounds Genitourinary: No suprapubic tenderness no CVA tenderness Musculoskeletal: Normal range of motion. Skin: No lesions or abrasions. Neurological: Alert, GCS 15 MEDICAL DECISION MAKING AND COURSE IN THE ED WITH INTERPRETATION/REVIEW OF DIAGNOSTIC STUDIES: This is a 35-year-old woman with a past medical history of asthma who presents to the emergency department with 1 day of right lower quadrant and right-sided abdominal pain with mildly tachycardic but overall appears well. At this time we will provide the patient with 1 L of lactated Ringer's bolus. I do not believe 30 cc/kg is needed at this time. We will wait for laboratory analysis. We will provide the patient with 0.5 mg of hydromorphone given her allergy to morphine. Will obtain CBC, CMP, hCG, lactic acid, lipase, magnesium, and urinalysis. We will obtain an abdomen pelvis CT with contrast. Laboratory: CBC reveals a leukocytosis of 15.67 without any neutrophilic predominance. INR is normal. CMP reveals elevated creatinine at 1.1 otherwise unremarkable. Lipase is 143. Lactic acid is 0.7. Urinalysis was a clean catch and was trace for leukocyte esterase, negative for nitrites, and trace for blood. Few squamous cells with few bacteria and 2-4 WBCs interpretation: Contaminated sample but otherwise negative On reevaluation the patient reported improvement in her pain however she still had some pain. I did offer her at this time Toradol. She was amenable to this treatment. We will reevaluate after CT. The radiological images were viewed by myself along with reading the report from the radiologist. CT abdomen pelvis with IV contrast reveals focal inflammatory fat stranding and trace free fluid along the lateral margin of the mid ascending colon without appreciable underlying diverticular or colonic wall thickening findings are favored to represent epiploic appendagitis although mild early changes of colonic diverticulitis are not excluded. There is a normal appendix otherwise no acute abdominal process. I did contact Dr. Aburto regarding the results. He states that at this time typically the treatment is NSAIDs and to return if it worsens. Therefore I did discuss the results with the patient. I discussed that she should use ibuprofen for pain relief scheduled for the next 7 days. She was given strict return precautions. The patient was amenable to discharge at this time and had no further questions DISPOSITION: The patient was discharged home in stable condition. The patient will follow up with primary care physician in 3 to 5 days CONDITION: Fair PROCEDURES: None FINAL IMPRESSION(S)/DIAGNOSES: 1. Acute abdominal pain likely secondary to epiploic appendagitis Nathan Oliva M.D. - Related Data Allergies Allergy/AdvReac Type Severity Reaction Status Date / Time morphine Allergy Rash Verified 11/28/20 12:07 mushroom Allergy throat Verified 11/28/20 12:07 swelling black olives Allergy throat Uncoded 11/28/20 12:07 swelling Home Meds: Home Meds Amoxicillin/Clavulanate K [Augmentin 875-125 MG] 1 tab PO BID 7 Days #14 tablet 11/28/20 [Rx] Cetirizine [ZyrTEC] 1 tab PO DAILY 11/28/20 [History] predniSONE [Prednisone] 40 mg PO DAILY 5 Days #10 tablet 11/28/20 [Rx] Past Medical History - Past Health History Medical/Surgical History: Denies Medical/Surgical History HEENT History: Reports: Impaired Vision Other HEENT History: wears eyeglasses Cardiovascular History: Reports: None Respiratory History: Reports: Asthma, Bronchitis, Recurrent, Other (See Below) Other Respiratory History: pneumonia. bronchitis Gastrointestinal History: Reports: None Genitourinary History: Reports: None SHOE PARTS MOLDER History: Reports: None Musculoskeletal History: Reports: None Neurological History: Reports: Migraines Psychiatric History: Reports: Anxiety, Depression, PTSD Endocrine/Metabolic History: Reports: None Hematologic History: Reports: None Immunologic History: Reports: None Oncologic (Cancer) History: Reports: None Dermatologic History: Reports: None - Infectious Disease History Infectious Disease History: Reports: Chicken Pox - Past Surgical History Head Surgeries/Procedures: Reports: None HEENT Surgical History: Reports: None Cardiovascular Surgical History: Reports: None Respiratory Surgical History: Reports: None GI Surgical History: Reports: None Female Surgical History: Reports: None Endocrine Surgical History: Reports: None Neurological Surgical History: Reports: None Musculoskeletal Surgical History: Reports: Other (See Below) Other Musculoskeletal Surgeries/Procedures:: right hand & left knee surgery Oncologic Surgical History: Reports: None Dermatological Surgical History: Reports: None Social & Family History - Family History Family Medical History: No Pertinent Family History - Tobacco Use Tobacco Use Status *Q: Never Tobacco User - Caffeine Use Caffeine Use: Reports: Coffee Caffeine Use Comment: 1 cup occasionally - Recreational Drug Use Recreational Drug Use: No ED ROS GENERAL - Review of Systems Review Of Systems: See Below ED EXAM, GENERAL - Physical Exam Exam: See Below Course - Vital Signs Last Recorded V/S: Last Vital Signs Temp 36.6 C 12/14/20 01:00 Pulse 71 12/14/20 04:00 Resp 17 12/14/20 04:00 BP 131/71 12/14/20 04:00 Pulse Ox 98 12/14/20 04:00 - Orders/Labs/Meds Labs: Laboratory Tests 12/14/20 12/14/20 12/14/20 Range/Units 00:45 00:45 00:53 WBC 15.67 H (4.0-11.0) K/uL RBC 4.24 L (4.30-5.90) M/uL Hgb 13.1 (12.0-16.0) g/dL Hct 38.6 (36.0-46.0) % MCV 91.0 (80.0-98.0) fL MCH 30.9 (27.0-32.0) pg MCHC 33.9 (31.0-37.0) g/dL RDW Std Deviation 42.3 (28.0-62.0) fl RDW Coeff of Rhoda 13 (11.0-15.0) % Plt Count 304 (150-400) K/uL MPV 11.50 (7.40-12.00) fL Neut % (Auto) 70.2 (48.0-80.0) % Lymph % (Auto) 21.2 (16.0-40.0) % [place] % (Auto) 7.6 (0.0-15.0) % Eos % (Auto) 0.8 (0.0-7.0) % Baso % (Auto) 0.2 (0.0-1.5) % Neut # (Auto) 11.0 H (1.4-5.7) K/uL Lymph # (Auto) 3.3 H (0.6-2.4) K/uL [place] # (Auto) 1.2 H (0.0-0.8) K/uL Eos # (Auto) 0.1 (0.0-0.7) K/uL Baso # (Auto) 0.0 (0.0-0.1) K/uL INR Sodium (136-145) mmol/L Potassium (3.5-5.1) mmol/L Chloride (98-107) mmol/L Carbon Dioxide (21.0-32.0) mmol/L BUN (7.0-18.0) mg/dL Creatinine (0.6-1.0) mg/dL Est Cr Clr Drug Dosing Estimated GFR (MDRD) ml/min Glucose (74-106) mg/dL Lactic Acid (0.4-2.0) mmol/L Calcium (8.5-10.1) mg/dL Magnesium (1.8-2.4) mg/dL Total Bilirubin (0.2-1.0) mg/dL AST (15-37) IU/L ALT (14-63) IU/L Alkaline Phosphatase (46-116) U/L Total Protein (6.4-8.2) g/dL Albumin (3.4-5.0) g/dL Globulin (2.6-4.0) g/dL Albumin/Globulin Ratio (0.9-1.6) Lipase (73-393) U/L Urine Color YELLOW Urine Appearance SLT CLOUDY Urine pH 6.0 (5.0-8.0) Ur Specific [place] 1.025 (1.001-1.035) Urine Protein NEGATIVE (NEGATIVE) mg/dL Urine Glucose (UA) NEGATIVE (NEGATIVE) mg/dL Urine Ketones NEGATIVE (NEGATIVE) mg/dL Urine Occult Blood SMALL H (NEGATIVE) Urine Nitrite NEGATIVE (NEGATIVE) Urine Bilirubin NEGATIVE (NEGATIVE) Urine Urobilinogen 0.2 (<2.0) EU/dL Ur Leukocyte Esterase SMALL H (NEGATIVE) Urine RBC 0-3 (0-2/HPF) Urine WBC 2-4 (0-5/HPF) Ur Epithelial Cells FEW (NONE-FEW) Calcium Oxalate Crystal FEW (NEGATIVE) Urine Bacteria FEW (NEGATIVE) Urine Mucus LIGHT (NONE-MOD) Urine HCG, Qual NEGATIVE (NEGATIVE) 12/14/20 12/14/20 12/14/20 Range/Units 00:53 01:45 02:22 WBC (4.0-11.0) K/uL RBC (4.30-5.90) M/uL Hgb (12.0-16.0) g/dL Hct (36.0-46.0) % MCV (80.0-98.0) fL MCH (27.0-32.0) pg MCHC (31.0-37.0) g/dL RDW Std Deviation (28.0-62.0) fl RDW Coeff of Rhoda (11.0-15.0) % Plt Count (150-400) K/uL MPV (7.40-12.00) fL Neut % (Auto) (48.0-80.0) % Lymph % (Auto) (16.0-40.0) % [place] % (Auto) (0.0-15.0) % Eos % (Auto) (0.0-7.0) % Baso % (Auto) (0.0-1.5) % Neut # (Auto) (1.4-5.7) K/uL Lymph # (Auto) (0.6-2.4) K/uL [place] # (Auto) (0.0-0.8) K/uL Eos # (Auto) (0.0-0.7) K/uL Baso # (Auto) (0.0-0.1) K/uL INR 0.95 Sodium 142 (136-145) mmol/L Potassium 3.6 (3.5-5.1) mmol/L Chloride 104 (98-107) mmol/L Carbon Dioxide 26.9 (21.0-32.0) mmol/L BUN 12 (7.0-18.0) mg/dL Creatinine 1.1 H (0.6-1.0) mg/dL Est Cr Clr Drug Dosing TNP Estimated GFR (MDRD) 56.9 ml/min Glucose 93 (74-106) mg/dL Lactic Acid 0.7 (0.4-2.0) mmol/L Calcium 9.0 (8.5-10.1) mg/dL Magnesium 1.8 (1.8-2.4) mg/dL Total Bilirubin 0.2 (0.2-1.0) mg/dL AST 14 L (15-37) IU/L ALT 24 (14-63) IU/L Alkaline Phosphatase 73 (46-116) U/L Total Protein 7.1 (6.4-8.2) g/dL Albumin 3.7 (3.4-5.0) g/dL Globulin 3.4 (2.6-4.0) g/dL Albumin/Globulin Ratio 1.1 (0.9-1.6) Lipase 143 (73-393) U/L Urine Color Urine Appearance Urine pH (5.0-8.0) Ur Specific [place] (1.001-1.035) Urine Protein (NEGATIVE) mg/dL Urine Glucose (UA) (NEGATIVE) mg/dL Urine Ketones (NEGATIVE) mg/dL Urine Occult Blood (NEGATIVE) Urine Nitrite (NEGATIVE) Urine Bilirubin (NEGATIVE) Urine Urobilinogen (<2.0) EU/dL Ur Leukocyte Esterase (NEGATIVE) Urine RBC (0-2/HPF) Urine WBC (0-5/HPF) Ur Epithelial Cells (NONE-FEW) Calcium Oxalate Crystal (NEGATIVE) Urine Bacteria (NEGATIVE) Urine Mucus (NONE-MOD) Urine HCG, Qual (NEGATIVE) Meds: Medications Discontinued Medications Generic Name Dose Route Start Last Admin Trade Name Freq PRN Reason Stop Dose Admin Hydromorphone HCl 0.5 mg 12/14/20 01:29 12/14/20 01:43 Hydromorphone 1 Mg/Ml Syringe IVPUSH 12/14/20 01:30 0.5 mg ONETIME ONE Administration Lactated Ringer's 1,000 mls @ 999 mls/hr 12/14/20 01:29 12/14/20 01:43 Ringers, Lactated IV 12/14/20 02:29 999 mls/hr .BOLUS ONE Administration Iopamidol 100 ml 12/14/20 02:01 12/14/20 02:07 Iopamidol 755 Mg/Ml 100 Ml Bottle IVPUSH 12/14/20 02:02 100 ml ONETIME ONE Administration Ketorolac Tromethamine 15 mg 12/14/20 03:31 12/14/20 03:51 Ketorolac 15 Mg/Ml Sdv IM 12/14/20 03:32 15 mg ONETIME ONE Administration Departure - Departure Time of Disposition: 03:37 Disposition: Home, Self-Care 01 Clinical Impression: Epiploic appendagitis - Discharge Information *PRESCRIPTION DRUG MONITORING PROGRAM REVIEWED*: No *COPY OF PRESCRIPTION DRUG MONITORING REPORT IN PATIENT GILBERT: No Instructions: Epiploic Appendagitis Referrals: PCP,None [Primary Care Provider] - Forms: ED Department Discharge Additional Instructions: Your evaluated today on an emergent basis. At this time your vitals were all within normal limits. We did get laboratory analysis all of which were were normal except for a mildly elevated white blood cell count. Your CT did show epiploic appendagitis which is inflammation of the fatty tissue along the intestine. Current recommendation is to take 600 mg every 6 hours of ibuprofen for the next week. I do recommend that you eat with this as this can cause ulcers. If you would like you can take [id number] Pepcid 20 to 40 mg daily to help prevent this. If you have continued pain, worsening pain, fever I would like you to return to the emergency department. Otherwise please follow- up with your primary care physician in 3 to 5 days. [facility] - Primary Care [address] [place] [address] [place] [address] The patient is informed of any results of their evaluation and diagnostic workup and all questions are answered. They are given discharge instructions and return precautions. The patient is stable for discharge. The patient states they understand and agree with the plan and that they will return if their symptoms get worse or if they have any new concerns. The following information is given to patients seen in the emergency department who are being discharged to home. This information is to outline your options for follow-up care. We provide all patients seen in our emergency department with a follow-up referral. The need for follow-up, as well as the timing and circumstances, are variable depending upon the specifics of your emergency department visit. If you don't have a primary care physician on staff, we will provide you with a referral. We always advise you to contact your personal physician following an emergency department visit to inform them of the circumstance of the visit and for follow-up with them and/or the need for any referrals to a consulting specialist. The emergency department will also refer you to a specialist when appropriate. This referral assures that you have the opportunity for follow-up care with a specialist. All of these measure are taken in an effort to provide you with optimal care, which includes your follow-up. Under all circumstances we always encourage you to contact your private physician who remains a resource for coordinating your care. When calling for follow-up care, please make the office aware that this follow-up is from your recent emergency room visit. If for any reason you are refused follow-up, please contact the [facility] Emergency Department at and asked to speak to the emergency department charge nurse. Sepsis Event Note (ED) - Evaluation Sepsis Screening Result: No Definite Risk
[2020-12-14 04:31] VITALS: BP 131/71; PULSE 71
== END 2020-12-14 04:15 | disposition home or self-care (01) ==
LOC: MW.ED 00:35
DX: K63.89 Other specified diseases of intestine (principal); Z88.5 Allergy status to narcotic agent; Z88.8 Allergy status to other drugs, medicaments and biological substances
CPT/HCPCS: 36415; 74177; 80053; 81001; 81025; 83605; 83690; 83735; 85025; 85610; 96372; 96374; 99284; J1170; J1885; J7120; Q9967

== ENCOUNTER 2022-02-17 14:47 | Emergency (ER) | payer SELFPAY ==
[2022-02-17] MEDS ORDERED: Acetaminophen 325 MG Tab PO ONE (15:33)
[2022-02-17] MEDS ORDERED: Ibuprofen 400 MG Tab PO ONE (15:33)
[2022-02-17] MEDS ORDERED: Albuterol/Ipratropium 3.0-0.5 MG/3 ML Neb Soln NEB ONE (16:19)
[2022-02-17 17:36] VITALS: BP 137/74; PULSE 71
== END 2022-02-17 17:32 | disposition home or self-care (01) ==
LOC: MW.ED 14:47
DX: J02.9 Acute pharyngitis, unspecified (principal); Z88.6 Allergy status to analgesic agent; Z91.018 Allergy to other foods; Z79.899 Other long term (current) drug therapy; Z20.822 Contact with and (suspected) exposure to COVID-19
CPT/HCPCS: 87635; 93005; 99283; A9270; J7620-GY; U0002

== ENCOUNTER 2022-03-27 21:28 | Emergency (ER) | payer BC ==
[2022-03-27] MEDS ORDERED: Ibuprofen 600 MG Tab PO ONE (21:46)
[2022-03-27] MEDS ORDERED: Azithromycin 250 MG Tab PO ONE (21:46)
[2022-03-27 21:55] VITALS: BP 138/84; PULSE 85
== END 2022-03-27 22:06 | disposition home or self-care (01) ==
LOC: MW.ED 21:28
DX: H66.91 Otitis media, unspecified, right ear (principal); Z88.6 Allergy status to analgesic agent; Z91.018 Allergy to other foods; Z79.899 Other long term (current) drug therapy
CPT/HCPCS: 99282; A9270

== ENCOUNTER 2022-04-05 04:42 | Emergency (ER) | payer BC ==
[2022-04-05 04:56] VITALS: BP 137/70; PULSE 70
== END 2022-04-05 05:27 | disposition home or self-care (01) ==
LOC: MW.ED 04:42
DX: N93.9 Abnormal uterine and vaginal bleeding, unspecified (principal); Z88.6 Allergy status to analgesic agent; Z91.018 Allergy to other foods; Z79.899 Other long term (current) drug therapy
CPT/HCPCS: 81025; 99284

== ENCOUNTER 2022-05-17 15:02 | Emergency (ER) | payer SELFPAY ==
[2022-05-17] MEDS ORDERED: Orphenadrine 60 MG/2 ML Inj IM ONE (19:14)
[2022-05-17] MEDS ORDERED: Ketorolac 60 MG/2 ML SDV IM ONE (19:14)
[2022-05-17 19:36] LABS: CORONAVIRUS COVID-19 NAA NEGATIVE (NEGATIVE); INFLUENZA A NAA NEGATIVE (NEGATIVE); INFLUENZA B NAA NEGATIVE (NEGATIVE); RESPIRATORY SYNCYTIAL VIR NAA NEGATIVE (NEGATIVE)
[2022-05-17 19:52] LABS: POTASSIUM,K 3.9 mmol/L (3.5-5.1)
[2022-05-17 20:33] VITALS: BP 140/84; PULSE 76
== END 2022-05-17 20:32 | disposition home or self-care (01) ==
LOC: MW.ED 15:02
DX: J06.9 Acute upper respiratory infection, unspecified (principal); J45.909 Unspecified asthma, uncomplicated; Z88.5 Allergy status to narcotic agent; Z91.018 Allergy to other foods; Z79.899 Other long term (current) drug therapy; Z20.822 Contact with and (suspected) exposure to COVID-19
CPT/HCPCS: 0241U; 36415; 71045; 80053; 83735; 84484; 85025; 85610; 93005; 96372; 99285; J1885; J2360

== ENCOUNTER 2022-08-15 17:32 | Emergency (ER) | payer SELFPAY ==
[2022-08-15] MEDS ORDERED: Sodium Chloride 0.9% 2.5 ML Syringe FLUSH PRN (20:54)
[2022-08-15] MEDS ORDERED: Sodium Chloride 0.9% 10 ML Syringe FLUSH PRN (20:54)
[2022-08-15] MEDS ORDERED: Sodium Chloride 0.9% 2,000 ML IV ONE (20:54)
[2022-08-15] MEDS ORDERED: Metoclopramide 10 MG/2 ML SDV IVPUSH ONE (20:58)
[2022-08-15] MEDS ORDERED: diphenhydrAMINE 50 MG/ML SDV IVPUSH ONE (20:58)
[2022-08-15] MEDS: 50% Dextrose in Water 50 ML Syringe IVPUSH ONE ×3 (21:40→23:06)
[2022-08-15 22:13] LABS: CARBON DIOXIDE,CO2 21.9 mmol/L (21.0-32.0); POTASSIUM,K 3.7 mmol/L (3.5-5.1)
[2022-08-16 01:48] VITALS: BP 143/90; PULSE 87
== END 2022-08-16 01:48 | disposition home or self-care (01) ==
LOC: MW.ED 17:32
DX: O21.1 Hyperemesis gravidarum with metabolic disturbance (principal); E86.0 Dehydration; Z88.5 Allergy status to narcotic agent; Z91.018 Allergy to other foods; Z3A.09 9 weeks gestation of pregnancy
CPT/HCPCS: 36415; 76815; 80053; 81001; 83735; 84702; 85025; 96361; 96374; 96375; 99284; J1200; J2765; J3490; J7030

== ENCOUNTER 2022-08-17 06:41 | Emergency (ER) | payer MEDICAID ==
[2022-08-17 09:59] LABS: CARBON DIOXIDE,CO2 24.7 mmol/L (21.0-32.0); POTASSIUM,K 3.9 mmol/L (3.5-5.1)
[2022-08-17 10:40] VITALS: BP 122/76; PULSE 76
== END 2022-08-17 10:39 | disposition home or self-care (01) ==
LOC: MW.ED 06:41
DX: O22.21 Superficial thrombophlebitis in pregnancy, first trimester (principal); I80.8 Phlebitis and thrombophlebitis of other sites; Z3A.09 9 weeks gestation of pregnancy; Z88.5 Allergy status to narcotic agent; Z91.018 Allergy to other foods
CPT/HCPCS: 36415; 80053; 85025; 85610; 85730; 93971-26-RT; 93971-RT; 99284

== ENCOUNTER 2022-11-20 17:22 | Emergency (ER) | payer OTHER, MEDICAID ==
[2022-11-20] MEDS ORDERED: Acetaminophen 325 MG Tab PO ONE (17:59)
[2022-11-20 19:50] VITALS: BP 134/96; PULSE 88
== END 2022-11-20 19:15 | disposition home or self-care (01) ==
LOC: MW.ED 17:22
DX: O99.891 Other specified diseases and conditions complicating pregnancy (principal); M25.571 Pain in right ankle and joints of right foot; O99.512 Diseases of the respiratory system complicating pregnancy, second trimester; J45.909 Unspecified asthma, uncomplicated; Z88.5 Allergy status to narcotic agent; Z91.018 Allergy to other foods; Z3A.23 23 weeks gestation of pregnancy; X50.1XXA Overexertion from prolonged static or awkward postures, initial encounter; Y93.01 Activity, walking, marching and hiking
CPT/HCPCS: 73610; 73620; 99283; A9270

== ENCOUNTER 2022-12-14 12:56 | Emergency (ER) | payer MEDICAID, OTHER ==
[2022-12-14 13:10] VITALS: BP 124/74; PULSE 89
[2022-12-14] MEDS ORDERED: Oxymetazoline 0.05% Nasal Spray 30 ML Bottle NAS ONE (13:12)
== END 2022-12-14 13:32 | disposition home or self-care (01) ==
LOC: MW.ED 12:56
DX: R04.0 Epistaxis (principal); J45.909 Unspecified asthma, uncomplicated; Z79.51 Long term (current) use of inhaled steroids
CPT/HCPCS: 99283; A9270

== ENCOUNTER 2023-01-09 20:10 | Emergency (ER) | payer MEDICAID, OTHER ==
[2023-01-09] MEDS ORDERED: Sodium Chloride 0.9% 1,000 ML IV ONE (20:52)
[2023-01-09] MEDS ORDERED: Sodium Chloride 0.9% 10 ML Syringe FLUSH PRN (20:52)
[2023-01-09] MEDS ORDERED: Sodium Chloride 0.9% 2.5 ML Syringe FLUSH PRN (20:52)
[2023-01-09 20:58] LABS: BASOPHILS PERCENT AUTO 0.1 % (0.0-1.5); EOSINOPHILS ABSOLUTE AUTO 0.3 K/uL (0.0-0.7); EOSINOPHILS PERCENT AUTO 2.4 % (0.0-7.0); HEMATOCRIT 32.8 % (36.0-46.0); HEMOGLOBIN 11.1 g/dL (12.0-16.0); LYMPHOCYTES PERCENT AUTO 14.4 % (16.0-40.0); MEAN CORPUSCULAR HEMOGLOBIN 30.9 pg (27.0-32.0); MEAN CORPUSCULAR HGB CONC 33.8 g/dL (31.0-37.0); MEAN CORPUSCULAR VOLUME 91.4 fL (80.0-98.0); MONOCYTES ABSOLUTE AUTO 0.8 K/uL (0.0-0.8); MONOCYTES PERCENT AUTO 5.9 % (0.0-15.0); NEUTROPHILS ABSOLUTE AUTO 10.8 K/uL (1.4-5.7); NEUTROPHILS PERCENT AUTO 77.2 % (48.0-80.0); NRBC ABSOLUTE 0 K/uL; PLATELET COUNT,PLT 297 K/uL (150-400); RED BLOOD CELL COUNT 3.59 M/uL (4.30-5.90)
[2023-01-09 21:12] LABS: A/G RATIO 0.6 (0.9-1.6); ALBUMIN 2.4 g/dL (3.4-5.0); BILIRUBIN TOTAL 0.2 mg/dL (0.2-1.0); CALCIUM 8.8 mg/dL (8.5-10.1); CARBON DIOXIDE,CO2 23.1 mmol/L (21.0-32.0); CREATININE 0.7 mg/dL (0.6-1.0); EST CRCL DRUG DOSING (CG) 91.91 mL/min; POTASSIUM,K 3.4 mmol/L (3.5-5.1); PROTEIN TOTAL,TP 6.3 g/dL (6.4-8.2)
[2023-01-09 21:59] LABS: BILIRUBIN,URINE NEGATIVE (NEGATIVE); COLOR,URINE YELLOW; GLUCOSE,URINE NEGATIVE (NEGATIVE); KETONES,URINE NEGATIVE (NEGATIVE); LEUKOCYTE ESTERASE,URINE SMALL (NEGATIVE); NITRITE,URINE POSITIVE (NEGATIVE); OCCULT BLOOD,URINE NEGATIVE (NEGATIVE); PH,URINE 6.5 (5.0-8.0); PROTEIN,URINE NEGATIVE (NEGATIVE); UROBILINOGEN,URINE 0.2 EU/dL (<2.0)
[2023-01-09 22:00] LABS: APPEARANCE,URINE SLT CLOUDY
[2023-01-09 22:07] LABS: AMORPHOUS SEDIMENT,URINE MODERATE (NEGATIVE); BACTERIA,URINE MANY (NEGATIVE); EPITHELIAL CELLS,URINE MANY (NONE-FEW); HYALINE CASTS,URINE OCCASIONAL (0-2/LPF); MUCUS,URINE FEW (NONE-MOD); RBC,URINE 0-2 (0-2/HPF); SQUAMOUS EPITHELIAL CELLS,UR MANY; WBC,URINE 0-5 (0-5/HPF)
[2023-01-09] MEDS ORDERED: Ondansetron 4 MG/2 ML SDV IVPUSH ONE (22:41)
[2023-01-09] MEDS ORDERED: Cephalexin 500 MG Cap PO ONE (22:41)
[2023-01-09 23:16] VITALS: BP 121/72; PULSE 78
== END 2023-01-09 23:14 | disposition home or self-care (01) ==
LOC: MW.ED 20:10
DX: O99.283 Endocrine, nutritional and metabolic diseases complicating pregnancy, third trimester (principal); E86.0 Dehydration; O23.43 Unspecified infection of urinary tract in pregnancy, third trimester; O99.513 Diseases of the respiratory system complicating pregnancy, third trimester; J45.909 Unspecified asthma, uncomplicated; Z88.5 Allergy status to narcotic agent; Z91.018 Allergy to other foods; Z79.899 Other long term (current) drug therapy; Z3A.30 30 weeks gestation of pregnancy
CPT/HCPCS: 36415; 80053; 81001; 85025; 87086; 93005; 96361; 96374; 99285; A9270; J2405; J3490; J7030; 93010

== ENCOUNTER 2023-01-29 20:10 | Emergency (ER) | payer MEDICAID ==
[2023-01-30 00:33] VITALS: BP 133/87; PULSE 96
== END 2023-01-29 21:20 | disposition home or self-care (01) ==
LOC: MW.ED 20:10
DX: O99.713 Diseases of the skin and subcutaneous tissue complicating pregnancy, third trimester (principal); L73.9 Follicular disorder, unspecified; O99.513 Diseases of the respiratory system complicating pregnancy, third trimester; J45.909 Unspecified asthma, uncomplicated; Z3A.33 33 weeks gestation of pregnancy; Z88.5 Allergy status to narcotic agent; Z91.018 Allergy to other foods; Z79.899 Other long term (current) drug therapy
CPT/HCPCS: 99282; 99283

== ENCOUNTER 2023-02-05 20:21 | Emergency (ER) | payer MEDICAID ==
[2023-02-05] MEDS ORDERED: Sodium Chloride 0.9% 2.5 ML Syringe FLUSH PRN (22:27)
[2023-02-05] MEDS ORDERED: Sodium Chloride 0.9% 1,000 ML IV ONE (22:27)
[2023-02-05] MEDS ORDERED: Sodium Chloride 0.9% 10 ML Syringe FLUSH PRN (22:27)
[2023-02-05] MEDS ORDERED: Dexamethasone 10 MG/ML SDV IVPUSH ONE (22:31)
[2023-02-05 23:12] LABS: BASOPHILS PERCENT AUTO 0.1 % (0.0-1.5); EOSINOPHILS ABSOLUTE AUTO 0.3 K/uL (0.0-0.7); HEMATOCRIT 34.2 % (36.0-46.0); HEMOGLOBIN 11.4 g/dL (12.0-16.0); LYMPHOCYTES ABSOLUTE AUTO 1.6 K/uL (0.6-2.4); LYMPHOCYTES PERCENT AUTO 10.3 % (16.0-40.0); MEAN CORPUSCULAR HEMOGLOBIN 30.4 pg (27.0-32.0); MEAN CORPUSCULAR HGB CONC 33.3 g/dL (31.0-37.0); MEAN CORPUSCULAR VOLUME 91.2 fL (80.0-98.0); MONOCYTES ABSOLUTE AUTO 0.9 K/uL (0.0-0.8); MONOCYTES PERCENT AUTO 5.6 % (0.0-15.0); NEUTROPHILS ABSOLUTE AUTO 12.5 K/uL (1.4-5.7); NRBC ABSOLUTE 0 K/uL; PLATELET COUNT,PLT 275 K/uL (150-400); RED BLOOD CELL COUNT 3.75 M/uL (4.30-5.90); WHITE BLOOD CELL COUNT,WBC 15.26 K/uL (4.0-11.0)
[2023-02-05 23:36] LABS: A/G RATIO 0.6 (0.9-1.6); ALBUMIN 2.4 g/dL (3.4-5.0); BILIRUBIN TOTAL 0.2 mg/dL (0.2-1.0); CALCIUM 8.9 mg/dL (8.5-10.1); CARBON DIOXIDE,CO2 21.9 mmol/L (21.0-32.0); CREATININE 0.8 mg/dL (0.6-1.0); EST CRCL DRUG DOSING (CG) 79.65 mL/min; PROTEIN TOTAL,TP 6.3 g/dL (6.4-8.2)
[2023-02-06] MEDS ORDERED: Cephalexin 500 MG Cap PO ONE (00:26)
[2023-02-06 00:48] VITALS: BP 131/96; PULSE 88
== END 2023-02-06 00:48 | disposition home or self-care (01) ==
LOC: MW.ED 20:21
DX: I88.9 Nonspecific lymphadenitis, unspecified (principal); J04.0 Acute laryngitis; J45.909 Unspecified asthma, uncomplicated; Z88.5 Allergy status to narcotic agent; Z91.018 Allergy to other foods; Z20.822 Contact with and (suspected) exposure to COVID-19
CPT/HCPCS: 36415; 80053; 85025; 86308; 87635; 87651; 96361; 96374; 99284; A9270; J1100; J3490; J7030; U0002

== ENCOUNTER 2023-03-05 21:13 | Inpatient (IN) | payer MEDICAID ==
[2023-03-05 22:17] LABS: APPEARANCE,URINE CLEAR; BILIRUBIN,URINE NEGATIVE (NEGATIVE); COLOR,URINE YELLOW; GLUCOSE,URINE NEGATIVE (NEGATIVE); KETONES,URINE NEGATIVE (NEGATIVE); LEUKOCYTE ESTERASE,URINE NEGATIVE (NEGATIVE); NITRITE,URINE NEGATIVE (NEGATIVE); OCCULT BLOOD,URINE NEGATIVE (NEGATIVE); PH,URINE 6.5 (5.0-8.0); PROTEIN,URINE NEGATIVE (NEGATIVE); UROBILINOGEN,URINE 0.2 EU/dL (<2.0)
[2023-03-05 23:33] LABS: HEMATOCRIT 32.1 % (36.0-46.0); HEMOGLOBIN 10.9 g/dL (12.0-16.0); MEAN CORPUSCULAR HEMOGLOBIN 30.5 pg (27.0-32.0); MEAN CORPUSCULAR VOLUME 89.9 fL (80.0-98.0); MEAN PLATELET VOLUME 11.3 fL (7.40-12.00); RED BLOOD CELL COUNT 3.57 M/uL (4.30-5.90); WHITE BLOOD CELL COUNT,WBC 12.04 K/uL (4.0-11.0)
[2023-03-05 23:58] LABS: A/G RATIO 0.6 (0.9-1.6); ALBUMIN 2.2 g/dL (3.4-5.0); BILIRUBIN TOTAL 0.1 mg/dL (0.2-1.0); CALCIUM 8.3 mg/dL (8.5-10.1); CREATININE 0.9 mg/dL (0.6-1.0); EST CRCL DRUG DOSING (CG) 70.8 mL/min; POTASSIUM,K 3.5 mmol/L (3.5-5.1); URIC ACID 5.4 mg/dL (2.6-7.2)
[2023-03-06] MEDS: Lactated Ringers 1,000 ML IV SCH ×2 (00:15→18:00)
[2023-03-06] MEDS ORDERED: Sodium Chloride 0.9% 2.5 ML Syringe FLUSH PRN (00:53)
[2023-03-06] MEDS ORDERED: Lidocaine 1% 50 ML MDV INJECT PRN (00:53)
[2023-03-06] MEDS ORDERED: Sodium Chloride 0.9% 10 ML Syringe FLUSH PRN (00:53)
[2023-03-06] MEDS ORDERED: Terbutaline 1 MG/ML SDV SUBCUT PRN (00:53)
[2023-03-06] MEDS ORDERED: Tranexamic Acid IN NACL,ISO-OS 1,000 MG in Premix Bag 1 BAG IV PRN ×2 (00:53)
[2023-03-06] MEDS ORDERED: Water For Irrigation,Sterile 1,000 ML Container IRR PRN (00:53)
[2023-03-06] MEDS ORDERED: Misoprostol 200 MCG Tab PO PRN (00:53)
[2023-03-06] MEDS ORDERED: Carboprost Tromethamine 250 MCG/1 mL Vial IM PRN (00:53)
[2023-03-06] MEDS ORDERED: Ondansetron 4 MG/2 ML SDV IVPUSH PRN (00:53)
[2023-03-06] MEDS ORDERED: Methylergonovine 0.2 MG/1 ML Amp IM PRN (00:53)
[2023-03-06] MEDS ORDERED: Misoprostol 25 MCG (1/4 of 100 MCG) Tab VAG PRN (00:53)
[2023-03-06] MEDS ORDERED: Sodium Chloride 0.9% 20 ML SDV IV PRN (00:53)
[2023-03-06] MEDS ORDERED: Oxytocin/0.9 % Sodium Chloride 30 UNIT/500 ML BAG IV SCH ×2 (01:00)
[2023-03-06] MEDS ORDERED: Ampicillin 2 GM in Sodium Chloride 0.9% 100 ML IV ONE (01:00)
[2023-03-06] MEDS: Ampicillin 1 GM in Sodium Chloride 0.9% 50 ML IV SCH ×4 (06:12→19:38)
[2023-03-06] MEDS: Misoprostol 25 MCG (1/4 of 100 MCG) Tab VAG PRN ×2 (06:17→11:10)
[2023-03-06] MEDS ORDERED: Ropivacaine HCl/PF 400 MG in Premix Bag 1 BAG EPIDUR SCH (08:00)
[2023-03-06] MEDS ORDERED: ePHEDrine 50 MG/ML SDV IVPUSH PRN ×2 (08:00)
[2023-03-06] MEDS ORDERED: Phenylephrine HCl 0.5 MG/5 ML AMP IVPUSH PRN (08:00)
[2023-03-06] MEDS ORDERED: Bupivacaine 0.25% 10 ML SDV ONE (18:06)
[2023-03-06] MEDS ORDERED: Dexmedetomidine 200 MCG/2 ML SDV ONE (18:06)
[2023-03-06] MEDS ORDERED: Benzocaine/Menthol 20%-0.5% Spray 78 GM Cannister TOP PRN (22:29)
[2023-03-06] MEDS ORDERED: Witch Hazel Medicated Pads 40/Jar TOP PRN (22:29)
[2023-03-06] MEDS ORDERED: Bisacodyl 10 MG Supp RECTAL PRN (22:29)
[2023-03-06] MEDS ORDERED: Acetaminophen 500 MG Tab PO PRN ×2 (22:29)
[2023-03-06] MEDS ORDERED: Ibuprofen 800 MG Tab PO PRN (22:29)
[2023-03-06] MEDS ORDERED: Lanolin 100% Cream 7 GM Tube TOP PRN (22:29)
[2023-03-06] MEDS ORDERED: Ibuprofen 400 MG Tab PO PRN (22:29)
[2023-03-06] MEDS ORDERED: Docusate Sodium 100 MG Cap PO PRN (22:29)
[2023-03-06 23:00] LABS: PH,UMBILICAL ARTERIAL 7.235 (7.18-7.38); PH,UMBILICAL VENOUS 7.306 (7.25-7.45)
[2023-03-07 05:45] LABS: HEMATOCRIT 31.3 % (36.0-46.0); HEMOGLOBIN 10.7 g/dL (12.0-16.0)
[2023-03-08 08:29] VITALS: BP 137/88; PULSE 81
== END 2023-03-08 10:35 | disposition home or self-care (01) | DRG 807 ==
LOC: MW.OB 21:13 → MW.OBCHECK 21:13 → MW.OB 22:09 → OBSVTOIN 03-06 22:04 → MW.OB 03-07 02:56
PROVIDERS: ADMIT Obstetrics & Gynecology; ATTEND Obstetrics & Gynecology
PROC: 10E0XZZ Delivery of Products of Conception, External Approach (ICD-10-PCS; principal; 2023-03-06)
PROC: 0HQ9XZZ Repair Perineum Skin, External Approach (ICD-10-PCS; 2023-03-06)
PROC: 3E0R3BZ Introduction of Anesthetic Agent into Spinal Canal, Percutaneous Approach (ICD-10-PCS; 2023-03-06)
PROC: 00HU33Z Insertion of Infusion Device into Spinal Canal, Percutaneous Approach (ICD-10-PCS; 2023-03-06)
PROC: 3E033VJ Introduction of Other Hormone into Peripheral Vein, Percutaneous Approach (ICD-10-PCS; 2023-03-06)
PROC: 3E0P7VZ Introduction of Hormone into Female Reproductive, Via Natural or Artificial Opening (ICD-10-PCS; 2023-03-06)
PROC: 3E0DXGC Introduction of Other Therapeutic Substance into Mouth and Pharynx, External Approach (ICD-10-PCS; 2023-03-06)
DX: O13.4 Gestational [pregnancy-induced] hypertension without significant proteinuria, complicating childbirth (principal); Z37.0 Single live birth; O36.8130 Decreased fetal movements, third trimester, not applicable or unspecified; O99.824 Streptococcus B carrier state complicating childbirth; O70.0 First degree perineal laceration during delivery; O69.81X0 Labor and delivery complicated by cord around neck, without compression, not applicable or unspecified; O77.0 Labor and delivery complicated by meconium in amniotic fluid; Z3A.38 38 weeks gestation of pregnancy
CPT/HCPCS: 00222; 01967; 36415; 51702; 59025; 80053; 81003; 82803; 84550; 85014; 85018; 85027; 86592; 86850; 86900; 86901; A9270-GY; J0290; J2590; J3490; J7120

== ENCOUNTER 2023-07-21 18:09 | Emergency (ER) | payer MEDICAID ==
[2023-07-21 20:41] LABS: CORONAVIRUS COVID-19 NAA NEGATIVE (NEGATIVE); INFLUENZA A NAA POSITIVE (NEGATIVE); INFLUENZA B NAA NEGATIVE (NEGATIVE)
[2023-07-21 21:38] VITALS: BP 129/70; PULSE 81
== END 2023-07-21 21:38 | disposition home or self-care (01) ==
LOC: MW.ED 18:09
DX: J10.1 Influenza due to other identified influenza virus with other respiratory manifestations (principal); J45.909 Unspecified asthma, uncomplicated; Z79.899 Other long term (current) drug therapy; Z88.5 Allergy status to narcotic agent; Z91.018 Allergy to other foods
CPT/HCPCS: 0240U; 87651; 99283

== ENCOUNTER 2023-10-02 19:23 | Emergency (ER) | payer MEDICAID ==
[2023-10-02] MEDS: Dexamethasone 10 MG/ML SDV IVPUSH ONE (21:26)
[2023-10-02] MEDS: Sodium Chloride 0.9% 1,000 ML IV ONE (21:26)
[2023-10-02] MEDS: Ketorolac 30 MG/ML SDV IVPUSH ONE (21:26)
[2023-10-02 23:16] VITALS: BP 111/68; PULSE 75
== END 2023-10-02 23:17 | disposition home or self-care (01) ==
LOC: MW.ED 19:23
DX: R51.9 Headache, unspecified (principal); J45.909 Unspecified asthma, uncomplicated; Z88.5 Allergy status to narcotic agent; Z91.018 Allergy to other foods; Z79.899 Other long term (current) drug therapy
CPT/HCPCS: 96374; 96375; 99283; J1100; J1885; J7030; 99284

== ENCOUNTER 2023-10-09 15:34 | Emergency (ER) | payer MEDICAID ==
[2023-10-09] MEDS: predniSONE 20 MG Tab PO ONE (16:33)
[2023-10-09 17:03] VITALS: BP 140/84; PULSE 72
== END 2023-10-09 17:04 | disposition home or self-care (01) ==
LOC: MW.ED 15:34
DX: L50.0 Allergic urticaria (principal); Z75.8 Other problems related to medical facilities and other health care; Z86.19 Personal history of other infectious and parasitic diseases
CPT/HCPCS: 99283; A9270

== ENCOUNTER 2023-11-27 12:15 | Emergency (ER) | payer MEDICAID ==
[2023-11-27 12:36] VITALS: BP 128/89
[2023-11-27] MEDS: Albuterol/Ipratropium 3.0-0.5 MG/3 ML Neb Soln NEB ONE (13:12)
[2023-11-27 13:16] VITALS: PULSE 88
== END 2023-11-27 13:24 | disposition home or self-care (01) ==
LOC: MW.ED 12:15
DX: J06.9 Acute upper respiratory infection, unspecified (principal); Z88.5 Allergy status to narcotic agent; Z91.018 Allergy to other foods; Z79.899 Other long term (current) drug therapy; Z75.8 Other problems related to medical facilities and other health care
CPT/HCPCS: 94640; 99283; 99284; J7620-GY

== ENCOUNTER 2023-12-10 17:37 | Emergency (ER) | payer MEDICAID ==
[2023-12-10 18:52] LABS: BASOPHILS ABSOLUTE AUTO 0.02 K/uL (0.00-0.20); BASOPHILS PERCENT AUTO 0.4 % (0.0-1.0); EOSINOPHILS ABSOLUTE AUTO 0.21 K/uL (0.00-0.45); EOSINOPHILS PERCENT AUTO 3.9 % (0.0-6.0); IMMATURE GRAN ABSOLUTE AUTO 0.01 K/uL (0.00-0.05); IMMATURE GRAN PERCENT AUTO 0.2 % (0.0-0.4); LYMPHOCYTES ABSOLUTE AUTO 1.71 K/uL (1.00-4.80); LYMPHOCYTES PERCENT AUTO 31.9 % (24.0-44.0); MEAN CORPUSCULAR HEMOGLOBIN 28.2 pg (28.0-32.0); MEAN CORPUSCULAR HGB CONC 33.3 g/dL (32.0-36.0); MEAN CORPUSCULAR VOLUME 84.7 fL (83.0-99.0); MEAN PLATELET VOLUME 10.5 fL (9.4-12.3); MONOCYTES ABSOLUTE AUTO 0.57 K/uL (0.00-0.80); MONOCYTES PERCENT AUTO 10.6 % (0.0-8.0); NEUTROPHILS ABSOLUTE AUTO 2.84 K/uL (1.80-7.70); PLATELET COUNT,PLT 337 K/uL (150-400); RED BLOOD CELL COUNT 4.25 M/uL (4.10-5.30); WHITE BLOOD CELL COUNT,WBC 5.36 K/uL (3.9-11.3)
[2023-12-10] MEDS: Sodium Chloride 0.9% 1,000 ML IV STA (18:57)
[2023-12-10] MEDS: Ketorolac 30 MG/ML SDV IVPUSH ONE (18:57)
[2023-12-10 19:02] LABS: CORONAVIRUS COVID-19 NAA NEGATIVE (NEGATIVE); INFLUENZA A NAA NEGATIVE (NEGATIVE); INFLUENZA B NAA NEGATIVE (NEGATIVE); RESPIRATORY SYNCYTIAL VIR NAA NEGATIVE (NEGATIVE)
[2023-12-10] MEDS: Sodium Chloride 0.9% 2.5 ML Syringe FLUSH PRN (19:10)
[2023-12-10] MEDS: Sodium Chloride 0.9% 10 ML Syringe FLUSH PRN (19:10)
[2023-12-10 19:19] LABS: ALANINE AMINOTRANSFERASE,ALT 22 IU/L (14-63); ALBUMIN 3.5 g/dL (3.4-5.0); ALKALINE PHOSPHATASE 84 U/L (46-116); ASPARTATE AMNIOTRANSFERASE,AST 13 IU/L (15-37); BILIRUBIN TOTAL 0.3 mg/dL (0.2-1.0); BLOOD UREA NITROGEN,BUN 8 mg/dL (7.0-18.0); CALCIUM 8.4 mg/dL (8.5-10.1); CARBON DIOXIDE,CO2 26.9 mmol/L (21.0-32.0); CHLORIDE,CL 104 mmol/L (98-107); EST CRCL DRUG DOSING (CG) 63.72 mL/min; GLUCOSE RANDOM 93 mg/dL (74-106); POTASSIUM,K 3.7 mmol/L (3.5-5.1); PROTEIN TOTAL,TP 7.1 g/dL (6.4-8.2); SODIUM,NA 141 mmol/L (136-145)
[2023-12-10 19:25] LABS: ESTIMATED GFR 74 mL/min (>60)
[2023-12-10 20:09] VITALS: BP 128/83; PULSE 81
== END 2023-12-10 19:54 | disposition home or self-care (01) ==
LOC: MW.ED 17:37
DX: R05.9 Cough, unspecified (principal); Z88.5 Allergy status to narcotic agent; Z91.018 Allergy to other foods; Z75.8 Other problems related to medical facilities and other health care
CPT/HCPCS: 0241U; 36415; 71046; 80053; 84484; 85025; 85379; 96374; 99285; J1885; J3490; J7030; 93005

== ENCOUNTER 2024-01-08 00:07 | Emergency (ER) | payer MEDICAID ==
[2024-01-08 00:18] VITALS: BP 141/72; PULSE 86
[2024-01-08] MEDS: Acetaminophen 500 MG Tab PO ONE (00:28)
[2024-01-08] MEDS: Ondansetron 4 MG Tab.DIS PO ONE (00:28)
== END 2024-01-08 01:17 | disposition home or self-care (01) ==
LOC: MW.ED 00:07
DX: S00.83XA Contusion of other part of head, initial encounter (principal); J45.909 Unspecified asthma, uncomplicated; Z75.8 Other problems related to medical facilities and other health care; Z88.5 Allergy status to narcotic agent; Z91.018 Allergy to other foods; Z79.899 Other long term (current) drug therapy; W01.0XXA Fall on same level from slipping, tripping and stumbling without subsequent striking against object, initial encounter
CPT/HCPCS: 70450; 99283; A9270

== ENCOUNTER 2024-02-03 17:25 | Emergency (ER) | payer MEDICAID ==
[2024-02-03 18:16] VITALS: BP 135/89; PULSE 87
== END 2024-02-03 18:35 | disposition home or self-care (01) ==
LOC: MW.ED 17:25
DX: H66.001 Acute suppurative otitis media without spontaneous rupture of ear drum, right ear (principal); Z79.899 Other long term (current) drug therapy; Z88.5 Allergy status to narcotic agent; Z91.018 Allergy to other foods; Z75.8 Other problems related to medical facilities and other health care
CPT/HCPCS: 99282

== ENCOUNTER 2024-02-13 06:52 | Emergency (ER) | payer MEDICAID ==
[2024-02-13] MEDS: predniSONE 20 MG Tab PO ONE (07:34)
[2024-02-13 07:58] LABS: CORONAVIRUS COVID-19 NAA NEGATIVE (NEGATIVE); INFLUENZA A NAA NEGATIVE (NEGATIVE); INFLUENZA B NAA NEGATIVE (NEGATIVE); RESPIRATORY SYNCYTIAL VIR NAA NEGATIVE (NEGATIVE)
[2024-02-13 08:37] VITALS: BP 125/86; PULSE 81
== END 2024-02-13 08:28 | disposition home or self-care (01) ==
LOC: MW.ED 06:52
DX: J06.9 Acute upper respiratory infection, unspecified (principal); Z75.8 Other problems related to medical facilities and other health care; Z79.899 Other long term (current) drug therapy; Z88.5 Allergy status to narcotic agent; Z91.018 Allergy to other foods
CPT/HCPCS: 0241U; 87651; 99283; A9270

== ENCOUNTER 2024-04-18 17:39 | Emergency (ER) | payer MEDICAID ==
[2024-04-18] MEDS: Acetaminophen/oxyCODONE 325-5 MG Tab PO ONE (19:15)
[2024-04-18 19:19] VITALS: BP 129/87; PULSE 100
== END 2024-04-18 22:31 | disposition home or self-care (01) ==
LOC: MW.ED 17:39
DX: S80.02XA Contusion of left knee, initial encounter (principal); J45.909 Unspecified asthma, uncomplicated; Z79.899 Other long term (current) drug therapy; Z88.5 Allergy status to narcotic agent; Z75.8 Other problems related to medical facilities and other health care; Z91.018 Allergy to other foods; W19.XXXA Unspecified fall, initial encounter
CPT/HCPCS: 73562; 73590; 73610; 99283; A9270

== ENCOUNTER 2024-05-19 18:03 | Emergency (ER) | payer MEDICAID ==
[2024-05-19 18:34] LABS: APPEARANCE,URINE CLEAR; BILIRUBIN,URINE NEGATIVE (NEGATIVE); COLOR,URINE YELLOW; GLUCOSE,URINE NEGATIVE (NEGATIVE); KETONES,URINE NEGATIVE (NEGATIVE); LEUKOCYTE ESTERASE,URINE NEGATIVE (NEGATIVE); NITRITE,URINE NEGATIVE (NEGATIVE); OCCULT BLOOD,URINE TRACE-INTACT (NEGATIVE); PROTEIN,URINE NEGATIVE (NEGATIVE); UROBILINOGEN,URINE 0.2 EU/dL (<2.0)
[2024-05-19 18:44] LABS: BACTERIA,URINE RARE (NEGATIVE); EPITHELIAL CELLS,URINE RARE (NONE-FEW); RBC,URINE 0-3 (0-2/HPF); WBC,URINE NONE SEEN (0-5/HPF)
[2024-05-19] MEDS: Sodium Chloride 0.9% 1,000 ML IV ONE (19:10)
[2024-05-19 19:16] LABS: BASOPHILS ABSOLUTE AUTO 0.04 K/uL (0.00-0.20); BASOPHILS PERCENT AUTO 0.3 % (0.0-1.0); EOSINOPHILS PERCENT AUTO 2.5 % (0.0-6.0); HEMATOCRIT 34.4 % (37.0-47.0); HEMOGLOBIN 11.5 g/dL (12.0-16.0); IMMATURE GRAN ABSOLUTE AUTO 0.05 K/uL (0.00-0.05); IMMATURE GRAN PERCENT AUTO 0.4 % (0.0-0.4); LYMPHOCYTES ABSOLUTE AUTO 3.58 K/uL (1.00-4.80); LYMPHOCYTES PERCENT AUTO 29.3 % (24.0-44.0); MEAN CORPUSCULAR HEMOGLOBIN 27.6 pg (28.0-32.0); MEAN CORPUSCULAR HGB CONC 33.4 g/dL (32.0-36.0); MEAN CORPUSCULAR VOLUME 82.7 fL (83.0-99.0); MEAN PLATELET VOLUME 10.3 fL (9.4-12.3); MONOCYTES ABSOLUTE AUTO 0.77 K/uL (0.00-0.80); MONOCYTES PERCENT AUTO 6.3 % (0.0-8.0); NEUTROPHILS ABSOLUTE AUTO 7.47 K/uL (1.80-7.70); NEUTROPHILS PERCENT AUTO 61.2 % (41.0-71.0); PLATELET COUNT,PLT 345 K/uL (150-400); RED BLOOD CELL COUNT 4.16 M/uL (4.10-5.30); WHITE BLOOD CELL COUNT,WBC 12.21 K/uL (3.9-11.3)
[2024-05-19 19:38] LABS: A/G RATIO 1.1 (0.9-1.6); ALBUMIN 3.5 g/dL (3.4-5.0); BILIRUBIN TOTAL 0.3 mg/dL (0.2-1.0); CALCIUM 8.8 mg/dL (8.5-10.1); CARBON DIOXIDE,CO2 27.6 mmol/L (21.0-32.0); CREATININE 0.9 mg/dL (0.6-1.0); EST CRCL DRUG DOSING (CG) 70.11 mL/min; POTASSIUM,K 3.7 mmol/L (3.5-5.1); PROTEIN TOTAL,TP 6.7 g/dL (6.4-8.2)
[2024-05-19] MEDS: Iopamidol 755 MG/ML 500 ML Multipack Bottle IVPUSH ONE (20:55)
[2024-05-19 21:36] VITALS: BP 128/88; PULSE 74
== END 2024-05-19 21:35 | disposition home or self-care (01) ==
LOC: MW.ED 18:03
DX: R10.31 Right lower quadrant pain (principal); J45.909 Unspecified asthma, uncomplicated; Z88.5 Allergy status to narcotic agent; Z91.018 Allergy to other foods; Z79.899 Other long term (current) drug therapy; Z75.8 Other problems related to medical facilities and other health care
CPT/HCPCS: 36415; 74177; 80053; 81001; 81025; 83690; 85025; 96360; 99284; J7030; Q9967

== ENCOUNTER 2024-06-26 13:18 | Emergency (ER) | payer MEDICAID ==
[2024-06-26 14:29] VITALS: BP 113/70; PULSE 89
== END 2024-06-26 14:31 | disposition home or self-care (01) ==
LOC: MW.ED 13:18
DX: R25.1 Tremor, unspecified (principal); Z88.5 Allergy status to narcotic agent; Z91.018 Allergy to other foods; Z91.048 Other nonmedicinal substance allergy status; Z75.8 Other problems related to medical facilities and other health care
CPT/HCPCS: 82947; 99283

== ENCOUNTER 2024-10-02 10:55 | Emergency (ER) | payer MEDICAID, OTHER ==
[2024-10-02] MEDS: Sodium Chloride 0.9% 1,000 ML IV ONE (11:14)
[2024-10-02] MEDS: Ondansetron 4 MG/2 ML SDV IVPUSH ONE (11:15)
[2024-10-02 11:44] LABS: HEMATOCRIT 35.4 % (37.0-47.0); HEMOGLOBIN 11.5 g/dL (12.0-16.0); MEAN CORPUSCULAR HEMOGLOBIN 26.7 pg (28.0-32.0); MEAN CORPUSCULAR HGB CONC 32.5 g/dL (32.0-36.0); MEAN CORPUSCULAR VOLUME 82.3 fL (83.0-99.0); PLATELET COUNT,PLT 242 K/uL (150-400); WHITE BLOOD CELL COUNT,WBC 7.66 K/uL (3.9-11.3)
[2024-10-02 11:58] LABS: A/G RATIO 0.8 (0.9-1.6); BILIRUBIN TOTAL 0.4 mg/dL (0.2-1.0); CALCIUM 7.9 mg/dL (8.5-10.1); CARBON DIOXIDE,CO2 24.5 mmol/L (21.0-32.0); EST CRCL DRUG DOSING (CG) 63.1 mL/min; MAGNESIUM 1.8 mg/dL (1.8-2.4); POTASSIUM,K 3.2 mmol/L (3.5-5.1); PROTEIN TOTAL,TP 6.6 g/dL (6.4-8.2)
[2024-10-02 12:09] LABS: BAND ABSOLUTE MAN 0.08; BAND PERCENT MAN 1 %; BASOPHILS ABSOLUTE MAN 0.08 K/uL (0.00-0.20); BASOPHILS PERCENT MAN 1 % (0-1); EOSINOPHILS ABSOLUTE MAN 0.08 K/uL (0.00-0.45); EOSINOPHILS PERCENT MAN 1 % (0-6); LYMPHOCYTES PERCENT MAN 47 % (24-44); MONOCYTES ABSOLUTE MAN 0.31 K/uL (0.00-0.80); MONOCYTES PERCENT MAN 4 % (0-8); SEG NEUTROPHILS ABSOLUTE MAN 3.52 K/uL (1.80-7.70); SEG NEUTROPHILS PERCENT MAN 46 % (41-71)
[2024-10-02 12:10] LABS: REACTIVE LYMPHOCYTES FEW
[2024-10-02 12:42] VITALS: BP 121/73
[2024-10-02 13:08] LABS: APPEARANCE,URINE CLEAR; BILIRUBIN,URINE NEGATIVE (NEGATIVE); COLOR,URINE YELLOW; GLUCOSE,URINE NEGATIVE (NEGATIVE); KETONES,URINE NEGATIVE (NEGATIVE); LEUKOCYTE ESTERASE,URINE NEGATIVE (NEGATIVE); NITRITE,URINE NEGATIVE (NEGATIVE); OCCULT BLOOD,URINE NEGATIVE (NEGATIVE); PROTEIN,URINE NEGATIVE (NEGATIVE); UROBILINOGEN,URINE 0.2 EU/dL (<2.0)
[2024-10-02] MEDS: Potassium Chloride 20 MEQ Tab.ER PO ONE (13:41)
[2024-10-02 13:45] VITALS: PULSE 94
== END 2024-10-02 13:45 | disposition home or self-care (01) ==
LOC: MW.ED 10:55
DX: E86.0 Dehydration (principal); R05.9 Cough, unspecified; J45.909 Unspecified asthma, uncomplicated; Z75.8 Other problems related to medical facilities and other health care; Z88.5 Allergy status to narcotic agent; Z91.018 Allergy to other foods; Z79.899 Other long term (current) drug therapy; Z79.51 Long term (current) use of inhaled steroids
CPT/HCPCS: 36415; 71045; 80053; 81003; 83735; 84703; 85025; 87428; 93005; 96361; 96374; 99285; A9270; J2405; J7030; 93010; 99284

== ENCOUNTER 2025-02-01 10:43 | Emergency (ER) | payer MEDICAID, SELFPAY ==
[2025-02-01] MEDS: diphenhydrAMINE 50 MG/ML SDV IVPUSH ONE (11:05)
[2025-02-01] MEDS: Prochlorperazine 10 MG/2 ML SDV IVPUSH ONE (11:05)
[2025-02-01] MEDS: Ketorolac 30 MG/ML SDV IVPUSH ONE (11:05)
[2025-02-01 12:15] VITALS: BP 141/81; PULSE 84
== END 2025-02-01 12:11 | disposition home or self-care (01) ==
LOC: MW.ED 10:43
DX: R51.9 Headache, unspecified (principal); J45.909 Unspecified asthma, uncomplicated; Z75.3 Unavailability and inaccessibility of health-care facilities; Z88.5 Allergy status to narcotic agent; Z91.018 Allergy to other foods; Z79.51 Long term (current) use of inhaled steroids
CPT/HCPCS: 96361; 96374; 96375; 99283; J0780; J1100; J1200; J1885; J7030